=== PATIENT | female | born 1965 | race African-American/Black ===

== ENCOUNTER 2018-11-24 04:47 | Emergency (ER) | payer OTHER ==
[2018-11-24 05:04] VITALS: BMI 28.1
[2018-11-24] MEDS ORDERED: FAMOTIDINE 20 MG/50 ML IVPB 20 MG/50 ML MG IVPB ONE ×2 (05:55→06:13)
[2018-11-24] MEDS ORDERED: MAG HYDROX/AL HYDROX/SIMETH -MYLANTA- ORAL SUSPENSION PO ONE (05:55)
[2018-11-24] MEDS ORDERED: ACETAMINOPHEN 1000 MG/100 ML VIAL (NON FORMULARY) IVPB ONE (05:55)
--- NOTE | 2018-11-24 06:07 | PDOC ---
Attending Attestation - Resident Resident Name: WillyBj - ED Attending Attestation I have performed the following: I have examined & evaluated the patient, The case was reviewed & discussed with the resident, I agree w/resident's findings & plan - HPI HPI: 11/24/18 06:07 Pt comes with chest pain - Physicial Exam PE: 11/24/18 07:08 Agree with resident exam. - Medical Decision Making 11/24/18 07:07 Pt's CBC is normal; EKG normal.
[2018-11-24] MEDS ORDERED: MAG HYDROX/AL HYDROX/SIMETH 30 ML UNIT-DOSE CUP ONE (06:12)
[2018-11-24] MEDS ORDERED: ACETAMINOPHEN INJECTION 100 ML IVPB ONE (06:12)
--- NOTE | 2018-11-24 06:12 | PDOC ---
History of Present Illness - General Chief Complaint: Chest Pain Stated Complaint: CHEST DISCOMFORT Time Seen by Provider: 11/24/18 05:54 History Source: Patient Exam Limitations: No Limitations - History of Present Illness Initial Comments: 11/24/18 06:12 53 yo F with a hx of HTN, HLD, DM, hyperthyroidism, GERD, and constipation presents to the emergency department with LUQ pain with radiation to the periumbilical region and back. Per the patient, the pain has been ongoing for 2 months with acute worsening over the course of 2 weeks. She has an upcoming appointment with Dr. Oviedo this coming Saturday. Per the patient, she has been unable to cope with the pain and has been using tylenol for pain relief. Denies nausea and vomiting. States her last BM was yesterday. Allergies: NKDA Shx: C/S Past History - Past Medical History Allergies/Adverse Reactions: Allergies Allergy/AdvReac Type Severity Reaction Status Date / Time Penicillins Allergy Severe Swelling Verified 11/24/18 05:04 Home Medications: Ambulatory Orders Aspirin [Aspirin EC] 81 mg PO DAILY 09/23/17 Insulin (Levemir) [Levemir Vial] 30 units SQ BID 09/23/17 Metoprolol Succinate 25 mg PO DAILY 09/23/17 Montelukast Sodium [Singulair] 10 mg PO DAILY 09/23/17 Pantoprazole Sodium [Protonix -] 40 mg PO DAILY 09/23/17 Propylthiouracil 50 mg PO TID 09/23/17 Famotidine [Pepcid] 40 mg PO DAILY 11/24/18 Pantoprazole Sodium [Protonix] 40 mg PO DAILY 11/24/18 Rifaximin [Xifaxan] 550 mg PO TID 11/24/18 Sitagliptin Phos/Metformin HCl [Janumet 50-1,000 mg Tablet] 1 each PO BID Valsartan/Hydrochlorothiazide [Valsartan-Hctz 80-12.5 mg Tab] 1 each PO DAILY COPD: No Diabetes: Yes HTN: Yes Thyroid Disease: Yes - Immunization History Immunization Up to Date: Yes - Suicide/Smoking/Psychosocial Hx Smoking History: Never smoked Number of Cigarettes Smoked Daily: 20 Hx Alcohol Use: No Drug/Substance Use Hx: No Review of Systems - Review of Systems Able to Perform ROS?: Yes Is the patient limited Maltese proficient: No Constitutional: No: Chills, Diaphoresis, Fever, Weakness HEENTM: No: Eye Pain, Ear Pain, Nose Pain, Throat Pain, Mouth Pain Respiratory: No: Cough, Shortness of Breath, Hemoptysis Cardiac (ROS): No: Chest Pain, Lightheadedness, Palpitations, Syncope, Chest Tightness ABD/GI: Yes: Constipated, Poor Appetite, Poor Fluid Intake, Abdominal cramping. No: Diarrhea, Nausea, Rectal Bleeding, Vomiting, Tarry Stools : No: Burning, Dysuria, Hematuria, Incontinence Musculoskeletal: No: Back Pain, Joint Pain, Neck Pain Integumentary: No: Bruising, Erythema, Rash Neurological: No: Headache, Numbness, Tingling, Tremors Psychiatric: Yes: Change in Appetite Endocrine: No: Unexplained Weight Gain Hematologic/Lymphatic: No: Anemia *Physical Exam - Vital Signs Last Vital Signs Temp Pulse Resp BP Pulse Ox 97.7 F 86 18 159/86 100 11/24/18 04:47 11/24/18 04:47 11/24/18 04:47 11/24/18 04:47 11/24/18 04:47 - Physical Exam General Appearance: Yes: Nourished, Appropriately Dressed. No: Apparent Distress, Intoxicated HEENT: positive: EOMI, LILY, Normal Voice, Symmetrical, Pharynx Normal, Hearing Grossly Normal. negative: Pale Conjunctivae, Scleral Icterus (R), Scleral Icterus (L), Muffled/Hoarse voice, Pharyngeal Erythema, Tonsillar Exudate, Tonsillar Erythema, Nasal Congestion, Rhinorrhea, Excessive drooling Neck: positive: Trachea midline, Supple. negative: Tender, Lymphadenopathy (R) , Lymphadenopathy (L), Tender lateral, Tender midline Respiratory/Chest: positive: Lungs Clear, Normal Breath Sounds. negative: Chest Tender, Respiratory Distress, Accessory Muscle Use, Crackles, Rales, Rhonchi, Stridor, Wheezing, Hyperresonant Cardiovascular: positive: Regular Rhythm, Regular Rate, S1, S2. negative: Systolic Murmur Gastrointestinal/Abdominal: positive: Normal Bowel Sounds, Tender (LUQ, periumbilical region), Flat, Soft. negative: Distended, Guarding Lymphatic: negative: Adenopathy Musculoskeletal: positive: Normal Inspection. negative: CVA Tenderness, Vertebral Tenderness Extremity: positive: Normal Capillary Refill, Normal Inspection, Normal Range of Motion. negative: Tender, Swelling, Calf Tenderness Integumentary: positive: Normal Color, Dry, Warm. 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 Initial vitals: Initial Vital Signs Temp Pulse Resp BP Pulse Ox 97.7 F 86 18 159/86 100 11/24/18 04:47 11/24/18 04:47 11/24/18 04:47 11/24/18 04:47 11/24/18 04:47 Work up: ddx: gastritis vs hernia (on physical exam; a hernia noted in the abdomen left to periumbilical region) vs UTI vs pancreatitis Laboratory Tests 11/24/18 06:25 WBC 8.9 RBC 4.59 Hgb 11.5 Hct 35.5 D MCV 77.2 L MCH 24.9 L D MCHC 32.3 RDW 16.9 H Plt Count 193 MPV 9.4 D Absolute Neuts (auto) 3.5 Neutrophils % 39.9 L D Lymphocytes % 46.8 H D Monocytes % 10.1 Eosinophils % 2.7 D Basophils % 0.5 Nucleated RBC % 0 interventions: gi cocktail and tylenol and morphine. Patient signed out to day team with pending lab work. 11/24/18 06:53 *DC/Admit/Observation/Transfer Diagnosis at time of Disposition: Abdominal pain - Referrals Referrals: Corin Vargas DO [Staff Physician] - Marino Quezada MD [Primary Care Provider] - - Patient Instructions Printed Discharge Instructions: DI for Abdominal Pain-Adult, DI for - - Discomforts and Remedies Additional Instructions: You were seen in the ED for chronic abdominal pain Your lab test were unremarkable aside from a positive Your transvaginal ultrasound did not show intrauterine , however your Beta blood tests shows you are likely to early to visualize. You will need to follow up with OBGYN and return to the ED in 48 hours for repeat beta blood test You have a referral for OBGYN and should follow up within 1 week You have an appointment with Dr. Oviedo coming up You may take Tylenol for pain relief Return to the ED immediately if you experience worsening abdominal pain, blood in vomit or stool, fever > 104F, chest pain or shortness of breath - Post Discharge Activity
[2018-11-24 06:38] LABS: BASO % 0.5 % (0-2.0); EOS % 2.7 % (0-4.5); HEMATOCRIT 35.5 % (32.4-45.2); HEMOGLOBIN 11.5 GM/dL (10.7-15.3); LYMPH % 46.8 % (8-40); MCH 24.9 pg (25.7-33.7); MCHC 32.3 g/dl (32.0-36.0); MEAN CELL VOLUME 77.2 fl (80-96); MEAN PLT VOLUME 9.4 fl (7.5-11.1); MONO % 10.1 % (3.8-10.2); NEUT % 39.9 % (42.8-82.8); PLATELET COUNT 193 K/MM3 (134-434); RBC 4.59 M/mm3 (3.60-5.2); RDW 16.9 % (11.6-15.6); WHITE BLOOD COUNT 8.9 K/mm3 (4.0-10.0)
[2018-11-24] MEDS ORDERED: morphine CARPU-JECT 2 MG/1 ML DISP.SYRIN IVPUSH ONE (06:49)
[2018-11-24 07:13] LABS: ALBUMIN 3.7 g/dl (3.4-5.0); BILIRUBIN,TOTAL 0.2 mg/dL (0.2-1); BLOOD UREA NITROGEN 14.5 mg/dL (7-18); CALCIUM 9.3 mg/dL (8.5-10.1); CREATININE 0.7 mg/dL (0.55-1.3); POTASSIUM 3.6 mmol/L (3.5-5.1); TOT PROT 7.8 g/dl (6.4-8.2)
[2018-11-24] MEDS ORDERED: MORPHINE SULFATE 2 MG/ML VIAL ONE (08:01)
--- NOTE | 2018-11-24 08:23 | PDOC ---
*Physical Exam - Vital Signs Last Vital Signs Temp Pulse Resp BP Pulse Ox 97.5 F L 78 18 173/96 H 100 11/24/18 07:57 11/24/18 07:57 11/24/18 07:57 11/24/18 07:57 11/24/18 07:57 ED Treatment Course - LABORATORY CBC & Chemistry Diagram: 11/24/18 06:25 11/24/18 06:25 - ADDITIONAL ORDERS Additional order review: Laboratory Results 11/24/18 11/24/18 11/24/18 06:25 06:25 06:25 Sodium Potassium Chloride Carbon Dioxide Anion Gap BUN Creatinine Est GFR (CKD-EPI)AfAm Est GFR (CKD-EPI)NonAf Random Glucose Lactic Acid 1.4 Calcium Magnesium 2.0 Total Bilirubin AST ALT Alkaline Phosphatase Total Protein Albumin Lipase 199 Beta HCG, Quant 6.7 11/24/18 06:25 Sodium 137 Potassium 3.6 Chloride 103 Carbon Dioxide 28 Anion Gap 6 L BUN 14.5 Creatinine 0.7 Est GFR (CKD-EPI)AfAm 116.27 Est GFR (CKD-EPI)NonAf 100.32 Random Glucose 234 H Lactic Acid Calcium 9.3 Magnesium Total Bilirubin 0.2 AST 8 L ALT 15 Alkaline Phosphatase 74 Total Protein 7.8 Albumin 3.7 Lipase Beta HCG, Quant 11/24/18 06:25 RBC 4.59 MCV 77.2 L MCHC 32.3 RDW 16.9 H MPV 9.4 D Neutrophils % 39.9 L D Lymphocytes % 46.8 H D Monocytes % 10.1 Eosinophils % 2.7 D Basophils % 0.5 - Medications Given in the ED: ED Medications Discontinued Medications Generic Name Dose Route Start Last Admin Trade Name Arcenio PRN Reason Stop Dose Admin Acetaminophen 1,000 mg 11/24/18 05:55 11/24/18 06:30 Ofirmev Injection - IVPB 11/24/18 05:56 1,000 mg ONCE ONE Administration Al Hydroxide/Mg Hydroxide 30 ml 11/24/18 05:55 11/24/18 06:30 Mylanta Suspension - PO 11/24/18 05:56 30 ml ONCE ONE Administration Famotidine/Sodium Chloride 20 mg in 50 mls @ 100 mls/hr 11/24/18 05:55 06:30 Pepcid 20 Mg Premixed Ivpb - IVPB 11/24/18 06:24 100 mls/hr ONCE ONE Administration Morphine Sulfate 2 mg 11/24/18 06:49 11/24/18 08:12 Morphine Injection - IVPUSH 11/24/18 06:50 2 mg ONCE ONE Administration *DC/Admit/Observation/Transfer Diagnosis at time of Disposition: Abdominal pain, - Discharge Dispostion Disposition: HOME Condition at time of disposition: Stable Decision to Admit order: No - Referrals Referrals: Marino Quezada MD [Primary Care Provider] - Corin Vargas DO [Staff Physician] - - Patient Instructions Printed Discharge Instructions: DI for Abdominal Pain-Adult, DI for - - Discomforts and Remedies Additional Instructions: You were seen in the ED for chronic abdominal pain Your lab test were unremarkable aside from a positive Your transvaginal ultrasound did not show intrauterine , however your Beta blood tests shows you are likely to early to visualize. You will need to follow up with OBGYN and return to the ED in 48 hours for repeat beta blood test You have a referral for OBGYN and should follow up within 1 week You have an appointment with Dr. Oviedo coming up You may take Tylenol for pain relief Return to the ED immediately if you experience worsening abdominal pain, blood in vomit or stool, fever > 104F, chest pain or shortness of breath - Post Discharge Activity
[2018-11-24 09:13] LABS: EPI CELLS 2.8 /HPF (0-5/HPF); HYALINE CASTS 5 /lpf (0-8); PH,URINE 5.5 (5.0-8.0); URINE APPEARANCE CLEAR; URINE BACTERIA 13.7 /hpf (NEGATIVE); URINE BILIRUBIN NEGATIVE (NEGATIVE); URINE COLOR YELLOW; URINE GLUCOSE (UA) NEGATIVE (NEGATIVE); URINE KETONE NEGATIVE (NEGATIVE); URINE LEUK ESTERASE NEGATIVE (NEGATIVE); URINE NITRITE NEGATIVE (NEGATIVE); URINE PROTEIN 2+ (NEGATIVE); URINE RBC 2 /hpf (0-4); URINE UROBILINOGEN 0.2 mg/dL (0.2-1.0); URINE WBC 1 /hpf (0-5)
--- NOTE | 2018-11-24 09:17 | EKG ---
Test Reason : Blood Pressure : / mmHG Vent. Rate : 083 BPM Atrial Rate : 083 BPM P-R Int : 190 ms QRS Dur : 082 ms QT Int : 398 ms P-R-T Axes : 046 -15 058 degrees QTc Int : 467 ms NORMAL SINUS RHYTHM POSSIBLE LEFT ATRIAL ENLARGEMENT LEFT VENTRICULAR HYPERTROPHY NONSPECIFIC T WAVE ABNORMALITY PROLONGED QT ABNORMAL ECG WHEN COMPARED WITH ECG OF 23-SEP-2017 09:41, NONSPECIFIC T WAVE ABNORMALITY, WORSE IN LATERAL LEADS Confirmed by JERALD CERVANTES, CAMILA ([id number]) on 11/24/2018 9:16:38 AM Referred By: Confirmed By:CAMILA MARQUES MD
[2018-11-24 11:23] VITALS: BP 167/85; PULSE 79; TEMP 97.7
== END 2018-11-24 11:52 | disposition home or self-care (01) ==
LOC: JER 04:47
PROC: 3E033GC Introduction of Other Therapeutic Substance into Peripheral Vein, Percutaneous Approach (ICD-10-PCS; principal; 2018-11-24)
PROC: 3E033NZ Introduction of Analgesics, Hypnotics, Sedatives into Peripheral Vein, Percutaneous Approach (ICD-10-PCS; 2018-11-24)
PROC: 3E033NZ Introduction of Analgesics, Hypnotics, Sedatives into Peripheral Vein, Percutaneous Approach (ICD-10-PCS; 2018-11-24)
DX: O26.891 Other specified pregnancy related conditions, first trimester (principal); R10.9 Unspecified abdominal pain; O10.911 Unspecified pre-existing hypertension complicating pregnancy, first trimester; O24.111 Pre-existing type 2 diabetes mellitus, in pregnancy, first trimester; O99.281 Endocrine, nutritional and metabolic diseases complicating pregnancy, first trimester; Z79.4 Long term (current) use of insulin; Z3A.01 Less than 8 weeks gestation of pregnancy
CPT/HCPCS: 36415; 76817-TC; 80053; 81003; 83605; 83690; 83735; 84702; 85025; 93005; 93010; 99283-25; J0131

== ENCOUNTER 2019-03-12 19:06 | Emergency (ER) | payer OTHER ==
[2019-03-12] MEDS ORDERED: ALBUTEROL SO4 2.5/IPRATROPIUM 0.5 INH SOL 3 ML VIAL.NEB. NEB ONE ×3 (19:17→20:23)
--- NOTE | 2019-03-12 19:19 | PDOC ---
Rapid Medical Evaluation Chief Complaint: Shortness of Breath Time Seen by Provider: 03/12/19 19:14 Medical Evaluation: Allergies Allergy/AdvReac Type Severity Reaction Status Date / Time Penicillins Allergy Severe Swelling Verified 11/24/18 05:04 03/12/19 19:14 I have performed a brief in-person evaluation of this patient. The patient presents with a chief complaint of:SOB 3 days, cough dry- Pertinent physical exam findings: tachypneic/ left BS diminished , appears ill I have ordered the following: EKG , CXR , DuoNeb The patient will proceed to the ED for further evaluation. 03/12/19 19:14 03/12/19 19:18 Discharge Disposition - Diagnosis SOB (shortness of breath) - Discharge Dispostion Condition at time of disposition: Stable - Referrals - Patient Instructions - Post Discharge Activity
[2019-03-12 19:21] VITALS: TEMP 99.5; BMI 29.6
--- NOTE | 2019-03-12 19:46 | PDOC ---
History of Present Illness - General Chief Complaint: Shortness of Breath Stated Complaint: SOB Time Seen by Provider: 03/12/19 19:14 History Source: Patient Exam Limitations: No Limitations - History of Present Illness Initial Comments: 03/12/19 19:46 54y F with PMH of HTN, HLD, DM, hyperthyroidism, GERD, Asthma presenting to ED with complaints of SOB, cough and chest pain. Patient states the symptoms started 2d ago but got worse this AM. She endorses cough, subjective fevers and chills, congestion, sore throat, headache and pain in the back of her neck. Denies n/v/d, abdominal pain, joint pain, weakness, neck stiffness, changes in vision. 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 Has had similar symptoms in the past when she was diagnosed with pna. PMD: Vu Quezada PMH: see hpi Meds: see med rec Allergies: PCN (rash/swelling) Social: smokes 1pack/week Past History - Past Medical History Allergies/Adverse Reactions: Allergies Allergy/AdvReac Type Severity Reaction Status Date / Time Penicillins Allergy Severe Swelling Verified 11/24/18 05:04 Home Medications: Ambulatory Orders Aspirin [Aspirin EC] 81 mg PO DAILY 09/23/17 Insulin (Levemir) [Levemir Vial] 30 units SQ BID 09/23/17 Metoprolol Succinate 25 mg PO DAILY 09/23/17 Montelukast Sodium [Singulair] 10 mg PO DAILY 09/23/17 Pantoprazole Sodium [Protonix -] 40 mg PO DAILY 09/23/17 Propylthiouracil 50 mg PO TID 09/23/17 Famotidine [Pepcid] 40 mg PO DAILY 11/24/18 Pantoprazole Sodium [Protonix] 40 mg PO DAILY 11/24/18 Rifaximin [Xifaxan] 550 mg PO TID 11/24/18 Sitagliptin Phos/Metformin HCl [Janumet 50-1,000 mg Tablet] 1 each PO BID Valsartan/Hydrochlorothiazide [Valsartan-Hctz 80-12.5 mg Tab] 1 each PO DAILY Azithromycin [Zithromax 250mg Tablets -] 250 mg PO UTDICT #6 tab 03/12/19 Methylprednisolone [Medrol Dose Armand] 4 mg PO ASDIR #21 tablet 03/12/19 Asthma: Yes COPD: No Diabetes: Yes HTN: Yes Thyroid Disease: Yes - Immunization History Immunization Up to Date: Yes - Psycho Social/Smoking Cessation Hx Smoking History: Current every day smoker Number of Cigarettes Smoked Daily: 10 Information on smoking cessation initiated: No Hx Alcohol Use: No Drug/Substance Use Hx: No Review of Systems - Review of Systems Constitutional: Yes: Chills, Fever HEENTM: Yes: See HPI, Throat Pain Respiratory: Yes: See HPI, Cough, Shortness of Breath Cardiac (ROS): Yes: See HPI ABD/GI: No: Symptoms Reported : No: Symptoms Reported Musculoskeletal: Yes: See HPI Integumentary: No: Symptoms Reported Neurological: No: Symptoms reported *Physical Exam - Vital Signs Last Vital Signs Temp Pulse Resp BP Pulse Ox 99.5 F 105 H 20 145/73 98 03/12/19 19:16 03/12/19 19:16 03/12/19 19:16 03/12/19 19:16 03/12/19 19:16 - Physical Exam General Appearance: Yes: Appropriately Dressed, Mild Distress, Obese HEENT: positive: EOMI, LILY, Nasal Congestion. negative: Tonsillar Exudate Neck: positive: Trachea midline, Supple. negative: Stridor, Lymphadenopathy (R) , Lymphadenopathy (L) Respiratory/Chest: positive: Decreased Breath Sounds, Other (prolonged expiratory phase). negative: Chest Tender, Respiratory Distress, Accessory Muscle Use, Labored Respiration, Crackles, Rales, Rhonchi, Stridor, Wheezing Cardiovascular: positive: Regular Rhythm, S1, S2, Tachycardia. negative: Edema , JVD, Murmur Vascular Pulses: Dorsalis-Pedis (R): 2+, Doralis-Pedis (L): 2+ Gastrointestinal/Abdominal: positive: Normal Bowel Sounds, Soft. negative: Tender Musculoskeletal: negative: CVA Tenderness Extremity: positive: Normal Capillary Refill. 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 vitals; slight tachycardia. pe: prolonged expiratory phase, no wheezing, no retractions or increased wob, no friction rubs. ddx includes but not limited to uri, pna, bronchitis, pna, pleurisy, pericarditis, carditis, effusion, pe, acs low suspicion for acs/pe. likely infectious given h/o congestion and chills/ fevers at home, and sick contacts. will obtain basic labs and trop, flu swab ekg, cxr -duonebs, ofirmev, ivf labs wnl. flu negative cxr unremarkable; no consolidations or infiltrates per my read ekg: sinus tachycardia at 106, normal intervals. no navneet or depressions. flattened t waves in aVL, I. similar to prior ekg. upon reassessment, patient reports marked improvement of symptoms. lungs with improved air movement. will give decadron. rx for zpack and medrol dose pack sent. advised pt to follow up with pmd. given return precautions 03/12/19 22:41 Discharge - Discharge Information Problems reviewed: Yes Clinical Impression/Diagnosis: SOB (shortness of breath) Upper respiratory infection Qualifiers: URI type: unspecified URI Qualified Code(s): J06.9 - Acute upper respiratory infection, unspecified Condition: Improved Disposition: HOME - Additional Discharge Information Prescriptions: Azithromycin [Zithromax 250mg Tablets -] 250 mg PO UTDICT #6 tab Methylprednisolone [Medrol Dose Armand] 4 mg PO ASDIR #21 tablet - Follow up/Referral Referrals: Marino Quezada MD [Primary Care Provider] - - Patient Discharge Instructions Patient Printed Discharge Instructions: DI for Viral Upper Respiratory Infection -- Adult Additional Instructions: You were seen in the emergency room today for shortness of breath and cough. Your blood work is normal and the xray does not show a pneumonia. I have sent a prescription to your pharmacy for an antibiotic and a steroid course. Please take as directed. Use your inhaler as needed for shortness of breath. Please make an appointment with your primary care doctor tomorrow or early next week regarding this ED visit. Come back to the emergency room if you have worsening shortness of breath, you develop worsening chest pain, you continue to have fevers or if any new or concerning symptom develops. Thank you - Post Discharge Activity
[2019-03-12] MEDS ORDERED: SODIUM CHLORIDE 1,000 ML IV STA (19:56)
[2019-03-12] MEDS ORDERED: ACETAMINOPHEN 1000 MG/100 ML VIAL (NON FORMULARY) IVPB ONE (19:56)
[2019-03-12] MEDS ORDERED: ACETAMINOPHEN INJECTION 100 ML IVPB ONE (20:02)
[2019-03-12 20:20] LABS: BASO % 0.4 % (0-2.0); EOS % 1.1 % (0-4.5); HEMATOCRIT 37.2 % (32.4-45.2); HEMOGLOBIN 12.2 GM/dL (10.7-15.3); LYMPH % 14.3 % (8-40); MCH 27.5 pg (25.7-33.7); MCHC 32.7 g/dl (32.0-36.0); MEAN CELL VOLUME 84.1 fl (80-96); MEAN PLT VOLUME 10.3 fl (7.5-11.1); MONO % 11.4 % (3.8-10.2); NEUT % 72.8 % (42.8-82.8); PLATELET COUNT 158 K/MM3 (134-434); RBC 4.43 M/mm3 (3.60-5.2); RDW 15.2 % (11.6-15.6); WHITE BLOOD COUNT 9.8 K/mm3 (4.0-10.0)
[2019-03-12 20:31] LABS: INR 1.08 (0.83-1.09); PROTHROMBIN TIME (PATIENT) 12.7 SEC (9.7-13.0)
[2019-03-12 20:39] LABS: ALBUMIN 3.6 g/dl (3.4-5.0); BILIRUBIN,TOTAL 0.3 mg/dL (0.2-1); BLOOD UREA NITROGEN 11.3 mg/dL (7-18); CALCIUM 8.6 mg/dL (8.5-10.1); CREATININE 0.7 mg/dL (0.55-1.3); MAGNESIUM 1.8 mg/dL (1.8-2.4); POTASSIUM 3.7 mmol/L (3.5-5.1); TOT PROT 7.1 g/dl (6.4-8.2)
--- NOTE | 2019-03-12 22:13 | PDOC ---
Attending Attestation - Resident Resident Name: Ada Holliday - ED Attending Attestation I have performed the following: I have examined & evaluated the patient, The case was reviewed & discussed with the resident, I agree w/resident's findings & plan, Exceptions are as noted - HPI HPI: 03/12/19 22:13 See resident HPI - Physicial Exam PE: 03/13/19 00:12 Agree with exam as documented by resident - Medical Decision Making 03/13/19 00:12 2 days of URI like symptoms Infectious etiology most likely, other ddx unlikely cxr, symptomatic tx, re-eval improvement on re-eval dc home 03/13/19 00:19
[2019-03-12] MEDS ORDERED: DEXAMETHASONE SOD PHOSPHATE 10 MG/1 ML VIAL IVPUSH ONE (22:31)
[2019-03-12] MEDS ORDERED: DEXAMETHASONE SOD PHOSPHATE 10 MG/1 ML VIAL ONE (22:38)
[2019-03-12 23:38] VITALS: BP 149/76; PULSE 97
--- NOTE | 2019-03-13 11:12 | EKG ---
Test Reason : Blood Pressure : / mmHG Vent. Rate : 106 BPM Atrial Rate : 106 BPM P-R Int : 182 ms QRS Dur : 086 ms QT Int : 364 ms P-R-T Axes : 075 -07 086 degrees QTc Int : 483 ms SINUS TACHYCARDIA POSSIBLE LEFT ATRIAL ENLARGEMENT NONSPECIFIC T WAVE ABNORMALITY ABNORMAL ECG WHEN COMPARED WITH ECG OF 24-NOV-2018 04:49, NO SIGNIFICANT CHANGE WAS FOUND Confirmed by PILAR MARIE MD ([id number]) on 03/13/2019 11:11:51 AM Referred By: Confirmed By:PILAR MARIE MD
== END 2019-03-12 22:50 | disposition home or self-care (01) ==
LOC: JER 19:06
PROC: 3E0F7GC Introduction of Other Therapeutic Substance into Respiratory Tract, Via Natural or Artificial Opening (ICD-10-PCS; principal; 2019-03-12)
PROC: 3E0F7GC Introduction of Other Therapeutic Substance into Respiratory Tract, Via Natural or Artificial Opening (ICD-10-PCS; 2019-03-12)
DX: J06.9 Acute upper respiratory infection, unspecified (principal); I10 Essential (primary) hypertension; E11.9 Type 2 diabetes mellitus without complications; Z79.4 Long term (current) use of insulin; E78.5 Hyperlipidemia, unspecified; E05.90 Thyrotoxicosis, unspecified without thyrotoxic crisis or storm; J44.9 Chronic obstructive pulmonary disease, unspecified; J45.998 Other asthma; Z88.0 Allergy status to penicillin; F17.210 Nicotine dependence, cigarettes, uncomplicated
CPT/HCPCS: 36415; 71046-TC-FY; 80053; 83735; 84484; 85025; 85610; 87804; 93005; 93010; 99283-25; J0131; J1100; J7030

== ENCOUNTER 2019-09-18 00:15 | Inpatient (IN) | payer OTHER ==
--- NOTE | 2019-09-18 00:56 | PDOC ---
Documentation entered by Kay Rodriguez SCRIBE, acting as scribe for Dylan Murcia MD. Dylan Murcia MD: This documentation has been prepared by the Michael chapin Adrianna, SCRIBE, under my direction and personally reviewed by me in its entirety. I confirm that the documentation accurately reflects all work, treatment, procedures, and medical decision making performed by me. Attending Attestation - Resident Resident Name: Kristian Bryant - ED Attending Attestation I have performed the following: I have examined & evaluated the patient, The case was reviewed & discussed with the resident, I agree w/resident's findings & plan, Exceptions are as noted - HPI HPI: The patient is 54 year old female, with a significant PMH of HTN, HLD, DM, hyperthyroidism, GERD, and asthma, who presents to the ED for evaluation of SOB for 2 weeks. Patient complains of SOB, which she is concerned is pneumonia. She endorses right sided chest pain that is onset when she feels short of breath. Patient saw her PCP for these complaints yesterday, and now is on day 2 of azithromycin. Denies fever, chills, cough. Allergies: penicillins Surgical History: None reported Social History: Current everyday smoker (1 pack per week) PCP: Dr. Quezada - Physicial Exam PE: Agree with documented exam - Medical Decision Making 09/18/19 06:52 Atypical chest pain in moderate risk patient a/w sob, tachycardic to 103 at bedside eval for acs, low risk for PE, cannot r/o f/u labs, trend CE, cxr, ekg d-dimer to CT PE if elevated past threshold admit tele Discharge - Discharge Information Problems reviewed: Yes Clinical Impression/Diagnosis: SOB (shortness of breath), Elevated troponin Abdominal pain Qualifiers: Abdominal location: right upper quadrant Qualified Code(s): R10.11 - Right upper quadrant pain Chest pain Qualifiers: Chest pain type: unspecified Qualified Code(s): R07.9 - Chest pain, unspecified Condition: Good - Follow up/Referral - Patient Discharge Instructions - Post Discharge Activity
--- NOTE | 2019-09-18 01:06 | PDOC ---
History of Present Illness - General Chief Complaint: Shortness of Breath Stated Complaint: DIFFICULTY BREATHING - History of Present Illness Initial Comments: The pt is a 54F w/ a PMH of HTN, HLD, DM, hyperthyroidism, GERD, Asthma who presents for evaluation of 2 weeks of intermittent SOB. The pt reports intermittent episodes of shortness of breath that last approximately 10 minutes at a time. They are not related to exertion any trigger she can identify. She reports associated R chest wall pain with deep inspiration. She denies fever, cough, abd pain, N/V/D, dysuria, hematuria. Of note, she was provided an albuterol inhaler yesterday that she has been using every couple of hours. She states she has not had anything happen like this before. Denies history of [place] or stroke 09/18/19 01:07 Past History - Medical History Allergies/Adverse Reactions: Allergies Allergy/AdvReac Type Severity Reaction Status Date / Time Penicillins Allergy Severe Swelling Verified 09/18/19 00:44 Home Medications: Ambulatory Orders Aspirin [Aspirin EC] 81 mg PO DAILY 09/23/17 Insulin (Levemir) [Levemir Vial] 20 units SQ BID 09/23/17 Metoprolol Succinate 25 mg PO DAILY 09/23/17 Propylthiouracil 50 mg PO TID 09/23/17 Pantoprazole Sodium [Protonix] 40 mg PO DAILY 11/24/18 Rifaximin [Xifaxan] 550 mg PO TID 11/24/18 Sitagliptin Phos/Metformin HCl [Janumet 50-1,000 mg Tablet] 1 each PO BID 11/24/18 Valsartan/Hydrochlorothiazide [Valsartan-Hctz 80-12.5 mg Tab] 1 each PO DAILY 11/24/18 Albuterol Sulfate Inhaler - 90 mcg IH ASDIR 09/18/19 Linaclotide [Linzess] 290 mcg PO DAILY 09/18/19 Novolog Vial Sliding Scale - SQ ACHS 09/18/19 SYMBICORT 160/4.5mcg - 2 puff IH BID 09/18/19 Asthma: Yes COPD: No Diabetes: Yes HTN: Yes Thyroid Disease: Yes - Immunization History Immunization Up to Date: Yes - Psycho-Social/Smoking History Smoking History: Never smoked Have you smoked in the past 12 months: No Number of Cigarettes Smoked Daily: 20 Information on smoking cessation initiated: No - Substance Abuse Hx (Audit-C & DAST Scrn) How often the patient has a drink containing alcohol: Never Score: In Men: 4 or > Positive; In Women: 3 or > Positive: 0 Screen Result (Pos requires Nsg. Audit-10AR): Negative In the last yr the pt used illegal drug/Rx for NonMed reason: No Score: Yes response is considered Positive: 0 Screen Result (Positive result requires Nsg. DAST-10): Negative Review of Systems - Review of Systems Able to Perform ROS?: Yes Comments:: GENERAL/CONSTITUTIONAL: No fever or chills HEAD, EYES, EARS, NOSE AND THROAT: No change in vision. No change in hearing. No sore throat CARDIOVASCULAR: per HPI RESPIRATORY: Denies cough, hemoptysis GASTROINTESTINAL: No nausea, vomiting, diarrhea or constipation GENITOURINARY: No dysuria, frequency, or change in urination MUSCULOSKELETAL: No joint or muscle swelling or pain. No neck or back pain SKIN: No rash NEUROLOGIC: No vertigo, loss of consciousness, or change in strength/sensation ENDOCRINE: No increased thirst. No abnormal weight change HEMATOLOGIC/LYMPHATIC: No anemia, easy bleeding, or history of blood clots ALLERGIC/IMMUNOLOGIC: No hives or skin allergy 09/18/19 05:19 Is the patient limited Nepali proficient: No *Physical Exam - Vital Signs Last Vital Signs Temp Pulse Resp BP Pulse Ox 97.6 F 92 H 22 H 146/97 99 09/18/19 00:44 09/18/19 00:44 09/18/19 00:44 09/18/19 00:44 09/18/19 00:44 - Physical Exam GENERAL: Awake, alert, and oriented to person/place/time, in no acute distress HEAD: No signs of trauma, normocephalic, atraumatic EYES: PERRLA, EOMI, sclera anicteric, conjunctiva clear ENT: Hearing grossly normal, nares patent, oropharynx clear without exudates. Moist mucosa LUNGS: No distress, speaks in full sentences, clear to auscultation bilaterally CHEST: R chest wall TTP w/o rash, ecchymosis, or wound HEART: Regular rate and rhythm, normal S1 and S2, no murmurs appreciated, peripheral pulses normal and equal bilaterally ABDOMEN: Soft, protuberant, nontender, normoactive bowel sounds. No guarding, no rebound EXTREMITIES: Normal inspection, Normal range of motion, no edema. No clubbing or cyanosis NEUROLOGICAL: Cranial nerves II through XII grossly intact. Normal speech, no focal sensorimotor deficits SKIN: Warm, Dry 09/18/19 05:20 ED Treatment Course - LABORATORY CBC & Chemistry Diagram: 09/18/19 13:00 09/18/19 13:00 - RADIOLOGY Radiology Studies Ordered: Category Date Time Status CHEST X-RAY PORTABLE* [RAD] Stat Radiology 09/18/19 00:52 Ordered Medical Decision Making - Medical Decision Making The pt is a 54F w/ a PMH of HTN, HLD, DM, hyperthyroidism, GERD, Asthma who presents for evaluation of 2 weeks of intermittent SOB w/ associated R chest wall pain and anxiety Ddx: ashtma, ACS, HF, PNA, not likely PE ED Course CMP, CBC, Lipase, Trop I, BNP ECG CXR Trop I 0.08 BNP elevated LFTs noted to be elevated, will obtain AM US Lipase wnl Lytes unremarkable No BRIGETTE ECG w/ NSR; HR 85; left axis deviation; Prolonged QTc (497); no acute ischemic changes Plan for admission for ACS and transaminitis Pt endorsed to Dr. Byrne Pt became very anxious about being in the hospital but is unable to give a specific reason why Denies chest pain at this time Klonopin 1mg PO once for anxiety 09/18/19 05:21 Pt now with epigastric/RUQ pain Will repeat Trop and ECG, will send dimer Repeat ECG w/o significant change 09/18/19 06:08 Pt w/ elevated d-dimer, and age adjusted is still >500 Will obtain CTA chest to evaluate for PE as cause of dyspnea Will obtain CT A&P to evaluate pt's abdominal pain 09/18/19 06:32 Discharge - Discharge Information Problems reviewed: Yes Clinical Impression/Diagnosis: SOB (shortness of breath), Elevated troponin Abdominal pain Qualifiers: Abdominal location: right upper quadrant Qualified Code(s): R10.11 - Right upper quadrant pain Chest pain Qualifiers: Chest pain type: unspecified Qualified Code(s): R07.9 - Chest pain, unspecified Condition: Good - Admission Yes - Follow up/Referral - Patient Discharge Instructions - Post Discharge Activity
[2019-09-18 01:14] LABS: BASO % 0.5 % (0-2.0); EOS % 1.3 % (0-4.5); HEMATOCRIT 40.2 % (32.4-45.2); LYMPH % 27.9 % (8-40); MCH 27.3 pg (25.7-33.7); MCHC 32.4 g/dl (32.0-36.0); MEAN CELL VOLUME 84.2 fl (80-96); MEAN PLT VOLUME 9.9 fl (7.5-11.1); MONO % 9.9 % (3.8-10.2); NEUT % 60.4 % (42.8-82.8); PLATELET COUNT 206 K/MM3 (134-434); RBC 4.77 M/mm3 (3.60-5.2); RDW 15.7 % (11.6-15.6); WHITE BLOOD COUNT 10.2 K/mm3 (4.0-10.0)
[2019-09-18 01:41] LABS: ALBUMIN 3.5 g/dl (3.4-5.0); BILIRUBIN,TOTAL 0.4 mg/dL (0.2-1); BLOOD UREA NITROGEN 14.2 mg/dL (7-18); CALCIUM 9.2 mg/dL (8.5-10.1); POTASSIUM 3.9 mmol/L (3.5-5.1); TOT PROT 7.2 g/dl (6.4-8.2)
[2019-09-18] MEDS ORDERED: ACETAMINOPHEN 325 MG TABLET (FP) PO ONE (04:35)
[2019-09-18] MEDS ORDERED: ACETAMINOPHEN 1000 MG/100 ML VIAL (NON FORMULARY) IVPB ONE (04:35)
[2019-09-18] MEDS ORDERED: ACETAMINOPHEN INJECTION 100 ML IVPB ONE (04:36)
[2019-09-18] MEDS ORDERED: clonazePAM 0.5 MG TABLET PO ONE (04:44)
[2019-09-18] MEDS ORDERED: clonazePAM 0.5 MG TABLET ONE (04:45)
[2019-09-18 05:06] LABS: N-TERMINAL BNP 1883.7 pg/ml (5-125)
[2019-09-18] MEDS ORDERED: metoPROLOL SUCCINATE 25 MG TAB.SR.24H (FP) PO ONE (06:20)
[2019-09-18] MEDS ORDERED: metoPROLOL SUCCINATE 25 MG TAB.SR.24H (FP) ONE ×2 (06:23→11:17)
[2019-09-18] MEDS ORDERED: ALBUTEROL SO4 2.5/IPRATROPIUM 0.5 INH SOL 3 ML VIAL.NEB. NEB PRN (09:28)
--- NOTE | 2019-09-18 09:38 | PN ---
Progress Note (short form) - Note Progress Note: Spoke with Dr. Byrne. Patient is patient of Dr. Marino Quezada and outpatient of Dr. Oviedo. Advised she call Dr. Oviedo's office for further GI evaluation.
--- NOTE | 2019-09-18 09:58 | CON.CARD ---
Consult Consult Specialty:: Cardiology - History of Present Illness History of Present Illness: The pt is a 54F w/ a PMH of HTN, HLD, DM, hyperthyroidism, GERD, Asthma who presents for evaluation of 2 weeks of intermittent SOB. The pt reports intermittent episodes of shortness of breath that last approximately 10 minutes at a time. They are not related to exertion any trigger she can identify. She reports associated R chest wall pain with deep inspiration. She denies fever, cough, abd pain, N/V/D, dysuria, hematuria. Of note, she was provided an albuterol inhaler yesterday that she has been using every couple of hours. She states she has not had anything happen like this before. Denies history of [place] or stroke 09/18/19 01:07 - Alcohol/Substance Use Hx Alcohol Use: No - Smoking History Smoking history: Never smoked Have you smoked in the past 12 months: No Aproximately how many cigarettes per day: 20 Home Medications - Allergies Allergies/Adverse Reactions: Allergies Allergy/AdvReac Type Severity Reaction Status Date / Time Penicillins Allergy Severe Swelling Verified 09/18/19 00:44 - Home Medications Home Medications: Ambulatory Orders Aspirin [Aspirin EC] 81 mg PO DAILY 09/23/17 Insulin (Levemir) [Levemir Vial] 20 units SQ BID 09/23/17 Metoprolol Succinate 25 mg PO DAILY 09/23/17 Propylthiouracil 50 mg PO TID 09/23/17 Pantoprazole Sodium [Protonix] 40 mg PO DAILY 11/24/18 Rifaximin [Xifaxan] 550 mg PO TID 11/24/18 Sitagliptin Phos/Metformin HCl [Janumet 50-1,000 mg Tablet] 1 each PO BID 11/24/18 Valsartan/Hydrochlorothiazide [Valsartan-Hctz 80-12.5 mg Tab] 1 each PO DAILY 11/24/18 Albuterol Sulfate Inhaler - 90 mcg IH ASDIR 09/18/19 Linaclotide [Linzess] 290 mcg PO DAILY 09/18/19 Novolog Vial Sliding Scale - SQ ACHS 09/18/19 SYMBICORT 160/4.5mcg - 2 puff IH BID 09/18/19 Review of Systems - Review of Systems Constitutional: reports: No Symptoms Eyes: reports: No Symptoms HENT: reports: No Symptoms Neck: reports: No Symptoms Cardiovascular: reports: No Symptoms, Shortness of Breath Respiratory: reports: SOB, SOB on Exertion Gastrointestinal: reports: No Symptoms Genitourinary: reports: No Symptoms Breasts: reports: No Symptoms Reported Musculoskeletal: reports: No Symptoms Integumentary: reports: No Symptoms Neurological: reports: No Symptoms Endocrine: reports: No Symptoms Hematology/Lymphatic: reports: No Symptoms Psychiatric: reports: No Symptoms Vital Signs: Vital Signs Temperature 97.6 F 09/18/19 00:44 Pulse Rate 78 09/18/19 07:29 Respiratory Rate 19 09/18/19 07:29 Blood Pressure 130/77 09/18/19 07:29 O2 Sat by Pulse Oximetry (%) 100 09/18/19 07:29 Constitutional: Yes: Well Nourished, No Distress, Calm Eyes: Yes: WNL, Conjunctiva Clear, EOM Intact HENT: Yes: WNL, Atraumatic, Normocephalic Neck: Yes: WNL, Supple, Trachea Midline Respiratory: Yes: WNL, Regular, CTA Bilaterally Gastrointestinal: Yes: WNL, Normal Bowel Sounds Renal/: Yes: WNL Cardiovascular: Yes: WNL, Regular Rate and Rhythm Musculoskeletal: Yes: WNL Extremities: Yes: WNL Integumentary: Yes: WNL Neurological: Yes: WNL, Alert, Oriented ...Motor Strength: WNL Psychiatric: Yes: WNL, Alert, Oriented - Other Data Labs, Other Data: CBC, BMP 09/18/19 01:05 09/18/19 01:05 Troponin, BNP 09/18/19 09/18/19 01:05 05:40 Troponin I 0.08 H 0.07 H B-Natriuretic Peptide 1883.7 H Troponin, BNP 09/18/19 09/18/19 01:05 05:40 Troponin I 0.08 H 0.07 H B-Natriuretic Peptide 1883.7 H Imaging - Results Chest X-ray: Image Reviewed (cm increased markings) EKG: Image Reviewed (sr lvh) Problem List - Problems (1) Abdominal pain Code(s): R10.9 - UNSPECIFIED ABDOMINAL PAIN Qualifiers: Abdominal location: right upper quadrant Qualified Code(s): R10.11 - Right upper quadrant pain (2) Chest pain Code(s): R07.9 - CHEST PAIN, UNSPECIFIED Qualifiers: Chest pain type: unspecified Qualified Code(s): R07.9 - Chest pain, unspecified (3) Interstitial edema Code(s): R60.9 - EDEMA, UNSPECIFIED (4) SOB (shortness of breath) Code(s): R06.02 - SHORTNESS OF BREATH (5) Suspected 2019 novel coronavirus infection Code(s): Z20.828 - CONTACT W AND EXPOSURE TO OTH VIRAL COMMUNICABLE DISEASES (6) Asthma Code(s): J45.909 - UNSPECIFIED ASTHMA, UNCOMPLICATED Qualifiers: Asthma severity: mild Asthma persistence: intermittent Asthma c omplication type: with acute exacerbation Qualified Code(s): J45.21 - Mild intermittent asthma with (acute) exacerbation (7) Right upper quadrant abdominal pain Code(s): R10.11 - RIGHT UPPER QUADRANT PAIN (8) Upper respiratory infection Code(s): J06.9 - ACUTE UPPER RESPIRATORY INFECTION, UNSPECIFIED Qualifiers: URI type: unspecified URI Qualified Code(s): J06.9 - Acute upper respiratory infection, unspecified Assessment/Plan HTN, HLD, DM, hyperthyroidism, GERD, Asthma admited with systolic CHF exacerbation and low level TNIs. CTA neg for PE ECHO showed CMP EF 15% ? noncompaction sx. Plan Telemetry ASA restart home meds start IV Lasix DVT PLX CMP w/u Will obtain records from dr. Marino Galo office regarding prior cardiac w/u.
[2019-09-18] MEDS ORDERED: PATIENT'S OWN MEDICATION (NON-FORMULARY) (Sitagliptin Phos/Metformin Hcl [Janumet 50-1,000 PO SCH (10:00)
[2019-09-18] MEDS: ASPIRIN COATED 81 MG TABLET.EC PO SCH (11:00)
[2019-09-18] MEDS ORDERED: ASPIRIN 81 MG CHEWABLE TABLETS ONE (11:16)
[2019-09-18] MEDS ORDERED: PANTOPRAZOLE 40 MG TABLET ONE (11:17)
[2019-09-18] MEDS: INSULIN SLIDING SCALE (NOVOLOG) 1 VIAL SQ SCH ×3 (11:24→21:46)
[2019-09-18] MEDS: PANTOPRAZOLE 40 MG TABLET PO SCH (11:24)
[2019-09-18] MEDS: BUDESONIDE/FORMETEROL FUMARATE 160/4.5 mcg INHALER IH SCH ×2 (11:24→21:42)
[2019-09-18] MEDS ORDERED: INSULIN REGULAR HUMAN 100 UNITS/ML *VIAL ONE (11:26)
--- NOTE | 2019-09-18 12:52 | CON.PULM ---
Consult Consult Specialty:: PULM/CCM Referred by:: Hospitalist Reason for Consultation:: SOB - History of Present Illness Chief Complaint: SOB History of Present Illness: 54 F, HTN, HLD, DM, and hyperthyroidism, and GERD. 2 week illness of dry cough, SOB, HINOJOSA, intermittent right sided pleuritic CP, and non-specific GI symptoms. Subjective low grade fever. No hemoptysis or night sweats. No previous history of Asthma. She does smoke (about 1 pack about every 3 to 4). She was prescribed Albuterol recently (about 2 weeks ago: with minimal improvement in symptoms). CT : diffuse interstitial infiltrates: DDX : pulmonary vascular congestion : Given clinical history and presentation can be consistent with capillary leak due to COVID19 infection. - History Source History Provided By: Patient Limitations to Obtaining History: No Limitations - Past Medical History Pulmonary: Yes: Bronchitis. No: Asthma, Cancer, COPD, O2 Dependent, Pneumonia, Previously Intubated, Pulmonary Embolus, Pulmonary Fibrosis, Sleep Apnea - Alcohol/Substance Use Hx Alcohol Use: No - Smoking History Smoking history: Never smoked Have you smoked in the past 12 months: No Aproximately how many cigarettes per day: 20 Home Medications - Allergies Allergies/Adverse Reactions: Allergies Allergy/AdvReac Type Severity Reaction Status Date / Time Penicillins Allergy Severe Swelling Verified 09/18/19 00:44 - Home Medications Home Medications: Ambulatory Orders Aspirin [Aspirin EC] 81 mg PO DAILY 09/23/17 Insulin (Levemir) [Levemir Vial] 20 units SQ BID 09/23/17 Metoprolol Succinate 25 mg PO DAILY 09/23/17 Propylthiouracil 50 mg PO TID 09/23/17 Pantoprazole Sodium [Protonix] 40 mg PO DAILY 11/24/18 Rifaximin [Xifaxan] 550 mg PO TID 11/24/18 Sitagliptin Phos/Metformin HCl [Janumet 50-1,000 mg Tablet] 1 each PO BID 11/24/18 Valsartan/Hydrochlorothiazide [Valsartan-Hctz 80-12.5 mg Tab] 1 each PO DAILY 11/24/18 Albuterol Sulfate Inhaler - 90 mcg IH ASDIR 09/18/19 Linaclotide [Linzess] 290 mcg PO DAILY 09/18/19 Novolog Vial Sliding Scale - SQ ACHS 09/18/19 SYMBICORT 160/4.5mcg - 2 puff IH BID 09/18/19 Review of Systems - Review of Systems Constitutional: reports: Chills, Fever, Malaise, Weakness. denies: Night Sweats, Unintentional Wgt. Loss Eyes: reports: No Symptoms HENT: reports: No Symptoms Neck: reports: No Symptoms Cardiovascular: reports: Chest Pain, Shortness of Breath. denies: Edema, P alpitations Respiratory: reports: Cough, SOB, SOB on Exertion. denies: Hemoptysis, Orthopnea, PND, Snoring, Wheezing Gastrointestinal: reports: Abdominal Pain, Indigestion, Nausea. denies: Rectal Bleeding, Vomiting Blood Genitourinary: reports: No Symptoms Breasts: reports: No Symptoms Reported Musculoskeletal: reports: No Symptoms Integumentary: reports: No Symptoms Neurological: reports: No Symptoms Endocrine: reports: No Symptoms Hematology/Lymphatic: reports: No Symptoms Psychiatric: reports: No Symptoms Physical Exam Vital Sings: Vital Signs Temperature 98.5 F 09/18/19 11:25 Pulse Rate 78 09/18/19 07:29 Respiratory Rate 19 09/18/19 07:29 Blood Pressure 130/77 09/18/19 07:29 O2 Sat by Pulse Oximetry (%) 100 09/18/19 07:29 Constitutional: Yes: Mild Distress Eyes: Yes: Conjunctiva Clear, EOM Intact HENT: Yes: Atraumatic, Normocephalic Neck: Yes: Supple, Trachea Midline Cardiovascular: Yes: Regular Rate and Rhythm Respiratory: Yes: Cough, Diminished, On Nasal O2, Rhonchi, SOB, SOB on Exertion. No: Accessory Muscle Use, Rales, Stridor, Tachypnea, Wheezes ...Inspection: Yes: WNL ...Clubbing: No Gastrointestinal: Yes: Normal Bowel Sounds, Soft, Abdomen, Obese Renal/: Yes: WNL Musculoskeletal: Yes: WNL Extremities: Yes: WNL Edema: No Peripheral Pulses WNL: Yes Integumentary: Yes: WNL Neurological: Yes: WNL, Alert, Oriented ...Motor Strength: WNL Psychiatric: Yes: WNL, Alert, Oriented Labs: CBC, BMP 09/18/19 01:05 09/18/19 01:05 Imaging - Results Chest X-ray: Report Reviewed, Image Reviewed Cat Scan: Report Reviewed, Image Reviewed Problem List - Problems (1) Interstitial edema Code(s): R60.9 - EDEMA, UNSPECIFIED (2) Abdominal pain Code(s): R10.9 - UNSPECIFIED ABDOMINAL PAIN Qualifiers: Abdominal location: right upper quadrant Qualified Code(s): R10.11 - Right upper quadrant pain (3) SOB (shortness of breath) Code(s): R06.02 - SHORTNESS OF BREATH (4) Upper respiratory infection Code(s): J06.9 - ACUTE UPPER RESPIRATORY INFECTION, UNSPECIFIED Qualifiers: URI type: unspecified URI Qualified Code(s): J06.9 - Acute upper respiratory infection, unspecified Assessment/Plan IMP: Clinical and radiographic suspicion of COVID19 infection Do not suspect Asthma R/O COPD Follow COVID19 serology No nebulizers for now If CRP > 10 : Medrol May need Lasix Isolation VTE prophylaxis No smoking Will need outpatient PFTs once stable Will follow closely Thank you. Dr Hawk
[2019-09-18 13:35] LABS: LDH 306 U/L (84-246)
[2019-09-18] MEDS: RIFAXIMIN 550 MG TABLET (UD) PO SCH ×2 (13:35→21:43)
[2019-09-18] MEDS: PROPYLTHIOURACIL 50 MG TABLET (UD) PO SCH ×2 (13:35→21:43)
[2019-09-18 13:39] LABS: BASO % 0.5 % (0-2.0); EOS % 1.7 % (0-4.5); HEMATOCRIT 39.3 % (32.4-45.2); HEMOGLOBIN 12.7 GM/dL (10.7-15.3); LYMPH % 40.1 % (8-40); MCH 27.2 pg (25.7-33.7); MCHC 32.2 g/dl (32.0-36.0); MEAN CELL VOLUME 84.3 fl (80-96); MEAN PLT VOLUME 10.2 fl (7.5-11.1); NEUT % 49.7 % (42.8-82.8); PLATELET COUNT 181 K/MM3 (134-434); RBC 4.66 M/mm3 (3.60-5.2); RDW 15.9 % (11.6-15.6); WHITE BLOOD COUNT 10.6 K/mm3 (4.0-10.0)
[2019-09-18 14:02] LABS: ALBUMIN 3.3 g/dl (3.4-5.0); BILIRUBIN,TOTAL 0.8 mg/dL (0.2-1); CALCIUM 8.9 mg/dL (8.5-10.1); CREATININE 0.9 mg/dL (0.55-1.3); POTASSIUM 4.4 mmol/L (3.5-5.1)
--- NOTE | 2019-09-18 14:51 | EKG ---
Test Reason : Blood Pressure : / mmHG Vent. Rate : 079 BPM Atrial Rate : 079 BPM P-R Int : 190 ms QRS Dur : 098 ms QT Int : 442 ms P-R-T Axes : 073 -10 066 degrees QTc Int : 506 ms NORMAL SINUS RHYTHM NONSPECIFIC T WAVE ABNORMALITY RIGHT ATRIAL ENLARGEMENT PROLONGED QT ABNORMAL ECG WHEN COMPARED WITH ECG OF 18-SEP-2019 00:55, NO SIGNIFICANT CHANGE WAS FOUND Confirmed by PILAR MARIE MD ([id number]) on 09/18/2019 2:51:28 PM Referred By: Confirmed By:PILAR MARIE MD
--- NOTE | 2019-09-18 14:52 | EKG ---
Test Reason : Blood Pressure : / mmHG Vent. Rate : 085 BPM Atrial Rate : 085 BPM P-R Int : 184 ms QRS Dur : 094 ms QT Int : 418 ms P-R-T Axes : 063 -20 094 degrees QTc Int : 497 ms NORMAL SINUS RHYTHM MODERATE VOLTAGE CRITERIA FOR LVH, MAY BE NORMAL VARIANT NONSPECIFIC ST ABNORMALITY PROLONGED QT ABNORMAL ECG WHEN COMPARED WITH ECG OF 12-MAR-2019 19:12, NO SIGNIFICANT CHANGE WAS FOUND Confirmed by PILAR MARIE MD ([id number]) on 09/18/2019 2:52:22 PM Referred By: Confirmed By:PILAR MARIE MD
--- NOTE | 2019-09-18 15:32 | HP ---
Admitting History and Physical - Primary Care Physician PCP: Naya Byrne - Admission Chief Complaint: sob History of Present Illness: 54 year old female, with a significant PMH of HTN, HLD, DM, hyperthyroidism, GERD, and asthma, who presents to the ED for evaluation of SOB for 2 weeks. Patient complains of SOB, which she is concerned is pneumonia. She endorses right sided chest pain that is onset when she feels short of breath. Patient saw her PCP for these complaints yesterday, and now is on day 2 of azithromycin. Denies fever, chills, cough. - Past Medical History Pulmonary: Yes: Bronchitis. No: Asthma, Cancer, COPD, O2 Dependent, Pneumonia, Previously Intubated, Pulmonary Embolus, Pulmonary Fibrosis, Sleep Apnea - Smoking History Smoking history: Never smoked Have you smoked in the past 12 months: No Aproximately how many cigarettes per day: 20 - Alcohol/Substance Use Hx Alcohol Use: No Home Medications - Allergies Allergies/Adverse Reactions: Allergies Allergy/AdvReac Type Severity Reaction Status Date / Time Penicillins Allergy Severe Swelling Verified 09/18/19 00:44 - Home Medications Home Medications: Ambulatory Orders Aspirin [Aspirin EC] 81 mg PO DAILY 09/23/17 Insulin (Levemir) [Levemir Vial] 20 units SQ BID 09/23/17 Metoprolol Succinate 25 mg PO DAILY 09/23/17 Propylthiouracil 50 mg PO TID 09/23/17 Pantoprazole Sodium [Protonix] 40 mg PO DAILY 11/24/18 Rifaximin [Xifaxan] 550 mg PO TID 11/24/18 Sitagliptin Phos/Metformin HCl [Janumet 50-1,000 mg Tablet] 1 each PO BID 11/24/18 Valsartan/Hydrochlorothiazide [Valsartan-Hctz 80-12.5 mg Tab] 1 each PO DAILY 11/24/18 Albuterol Sulfate Inhaler - 90 mcg IH ASDIR 09/18/19 Linaclotide [Linzess] 290 mcg PO DAILY 09/18/19 Novolog Vial Sliding Scale - SQ ACHS 09/18/19 SYMBICORT 160/4.5mcg - 2 puff IH BID 09/18/19 Physical Examination Vital Signs: Vital Signs Temperature 98.5 F 09/18/19 11:25 Pulse Rate 78 09/18/19 07:29 Respiratory Rate 19 09/18/19 07:29 Blood Pressure 130/77 09/18/19 07:29 O2 Sat by Pulse Oximetry (%) 100 09/18/19 07:29 Constitutional: Yes: No Distress HENT: Yes: Atraumatic Neck: Yes: Supple Cardiovascular: Yes: Regular Rate and Rhythm Respiratory: Yes: Rhonchi Gastrointestinal: Yes: Normal Bowel Sounds Extremities: Yes: WNL Edema: No Neurological: Yes: Alert, Oriented Labs: CBC, BMP 09/18/19 13:00 09/18/19 13:00 Imaging - Results X-ray: Report Reviewed Cat Scan: Report Reviewed Problem List - Problems (1) Suspected 2019 novel coronavirus infection Assessment/Plan: id consult negative pressure room quarantine Code(s): Z20.828 - CONTACT W AND EXPOSURE TO OTH VIRAL COMMUNICABLE DISEASES (2) Abdominal pain Code(s): R10.9 - UNSPECIFIED ABDOMINAL PAIN Qualifiers: Abdominal location: right upper quadrant Qualified Code(s): R10.11 - Right upper quadrant pain (3) Chest pain Assessment/Plan: fu troponins cardio consult tele monitoring Code(s): R07.9 - CHEST PAIN, UNSPECIFIED Qualifiers: Chest pain type: unspecified Qualified Code(s): R07.9 - Chest pain, unspecified (4) SOB (shortness of breath) Code(s): R06.02 - SHORTNESS OF BREATH (5) Asthma Assessment/Plan: duo nebs q4 prn Code(s): J45.909 - UNSPECIFIED ASTHMA, UNCOMPLICATED Qualifiers: Asthma severity: mild Asthma persistence: intermittent Asthma complication type: with acute exacerbation Qualified Code(s): J45.21 - Mild intermittent asthma with (acute) exacerbation (6) Diabetes Code(s): E11.9 - TYPE 2 DIABETES MELLITUS WITHOUT COMPLICATIONS (7) Hyperthyroidism Assessment/Plan: on meds stable Code(s): E05.90 - THYROTOXICOSIS, UNSP WITHOUT THYROTOXIC CRISIS OR STORM (8) HTN (hypertension) Assessment/Plan: on meds monitor Code(s): I10 - ESSENTIAL (PRIMARY) HYPERTENSION Assessment/Plan Laboratory Tests 09/18/19 09/18/19 09/18/19 01:05 01:05 01:32 WBC 10.2 H RBC 4.77 Hgb 13.0 Hct 40.2 MCV 84.2 MCH 27.3 MCHC 32.4 RDW 15.7 H Plt Count 206 D MPV 9.9 Absolute Neuts (auto) 6.2 Neutrophils % 60.4 Lymphocytes % 27.9 D Monocytes % 9.9 Eosinophils % 1.3 Basophils % 0.5 Nucleated RBC % 0 D-Dimer Sodium 140 Potassium 3.9 Chloride 106 Carbon Dioxide 25 Anion Gap 9 BUN 14.2 Creatinine 1.0 Est GFR (CKD-EPI)AfAm 75.01 Est GFR (CKD-EPI)NonAf 64.72 POC Glucometer Random Glucose 233 H Calcium 9.2 Total Bilirubin 0.4 AST 170 H ALT 172 H Alkaline Phosphatase 110 LD Total Creatine Kinase Creatine Kinase Index CK-MB (CK-2) Troponin I 0.08 H C-Reactive Protein B-Natriuretic Peptide 1883.7 H Total Protein 7.2 Albumin 3.5 Lipase 176 Serum , Qual Negative 09/18/19 09/18/19 09/18/19 05:40 05:40 11:21 WBC RBC Hgb Hct MCV MCH MCHC RDW Plt Count MPV Absolute Neuts (auto) Neutrophils % Lymphocytes % Monocytes % Eosinophils % Basophils % Nucleated RBC % D-Dimer 819 H Sodium Potassium Chloride Carbon Dioxide Anion Gap BUN Creatinine Est GFR (CKD-EPI)AfAm Est GFR (CKD-EPI)NonAf POC Glucometer 205 Random Glucose Calcium Total Bilirubin AST ALT Alkaline Phosphatase LD Total 306 H Creatine Kinase 171 Creatine Kinase Index 3.0 CK-MB (CK-2) 5.3 H Troponin I 0.07 H C-Reactive Protein < 0.3 B-Natriuretic Peptide Total Protein Albumin Lipase Serum , Qual 09/18/19 09/18/19 13:00 13:00 WBC 10.6 H RBC 4.66 Hgb 12.7 Hct 39.3 MCV 84.3 MCH 27.2 MCHC 32.2 RDW 15.9 H Plt Count 181 MPV 10.2 Absolute Neuts (auto) 5.2 Neutrophils % 49.7 Lymphocytes % 40.1 H D Monocytes % 8.0 Eosinophils % 1.7 Basophils % 0.5 Nucleated RBC % 0 D-Dimer Sodium 136 Potassium 4.4 Chloride 104 Carbon Dioxide 26 Anion Gap 7 L BUN 15.0 Creatinine 0.9 Est GFR (CKD-EPI)AfAm 85.20 Est GFR (CKD-EPI)NonAf 73.51 POC Glucometer Random Glucose 191 H Calcium 8.9 Total Bilirubin 0.8 AST 75 H ALT 139 H Alkaline Phosphatase 90 LD Total Creatine Kinase Creatine Kinase Index CK-MB (CK-2) Troponin I C-Reactive Protein B-Natriuretic Peptide Total Protein 7.0 Albumin 3.3 L Lipase Serum , Qual Active Medications Generic Name Dose Route Start Last Admin Trade Name Freq PRN Reason Stop Dose Admin Aspirin 81 mg 09/18/19 10:00 09/18/19 11:00 Ecotrin - PO 81 mg DAILY JACLYN Administration Budesonide/Formoterol Fumarate 2 puff 09/18/19 10:00 09/18/19 11:24 Symbicort 160/4.5mcg - IH Not Given BID [facility] Insulin Aspart 1 vial 09/18/19 11:00 09/18/19 11:24 Novolog Vial Sliding Scale - SQ 4 units ACHS JACLYN Administration Protocol Insulin Detemir 20 units 09/18/19 22:00 Levemir Vial SQ 0700,2200 [facility] Metformin HCl 1,000 mg 09/18/19 16:30 Glucophage - PO 0700,1630 [facility] Metoprolol Succinate 25 mg 09/18/19 10:00 09/18/19 11:24 Toprol Xl - PO 25 mg DAILY JACLYN Administration Pantoprazole Sodium 40 mg 09/18/19 10:00 09/18/19 11:24 Protonix - PO 40 mg DAILY JACLYN Administration Propylthiouracil 50 mg 09/18/19 14:00 09/18/19 13:35 Ptu - PO 50 mg TID JACLYN Administration Rifaximin 550 mg 09/18/19 14:00 09/18/19 13:35 Xifaxan - PO 550 mg TID JACLYN Administration Sitagliptin Phosphate 50 mg 09/18/19 16:30 Januvia - PO 0700,1630 [facility] COVERING FOR DR BYRNE TODAY
--- NOTE | 2019-09-18 15:43 | ECHO ---
Version: 1 Name: JANEEN BLEDSOE Exam: Adult Echocardiogram Study Date: 09/18/2019, 2:37 PM Age: 54 Years MMode/2D Measurements & Calculations IVSd: 0.83 cm LVIDs: 4.5 cm LVIDd: 5.3 cm LVPWd: 0.91 cm LAV (MOD-bp): 74.0 ml ACS: 1.69 cm Ao root diam: 2.7 cm LVOT diam: 1.97 cm LA dimension: 4.4 cm Doppler Measurements & Calculations MV E max landry: 71.3 cm/sec Med E/e': 19.8 MV A max landry: 20.1 cm/sec Med Peak E' Landry: 3.6 cm/sec MV E/A: 3.6 Lat E/e': 12.4 Lat Peak E' Landry: 5.8 cm/sec MR max P.0 mmHg Ao max P.47 mmHg CHET(I,D): 1.69 cm Ao mean P.30 mmHg LV V1 mean: 27.7 cm/sec Ao V2 max: 78.5 cm/sec LV V1 mean P.34 mmHg PI end-d landry: 186.0 cm/sec TR max landry: 268.5 cm/sec TR max P.0 mmHg Left Ventricle The left ventricle is grossly normal size. Left ventricular systolic function is severely reduced. E jection Fraction = <15%. In some views, there is a suggestion of left ventricular non-compaction. Recommend outpatient echo with contrast or cardiac MRI. There is severe global hypokinesis of the left ventric le. Right Ventricle The right ventricle is grossly normal size. The right ventricular systolic function is mildly reduce d. Atria The left atrium is mildly dilated. Mitral Valve The mitral valve is normal in structure and function. There is no mitral valve stenosis. There is mi ld mitral regurgitation. Tricuspid Valve The tricuspid valve is normal in structure and function. There is moderate tricuspid regurgitation. Right ventricular systolic pressure is elevated at 30-40mmHg. Aortic Valve The aortic valve opens well. No hemodynamically significant valvular aortic stenosis. No aortic regu rgitation is present. Pulmonic Valve The pulmonic valve is not well seen, but is grossly normal. Great Vessels The aortic root is normal size. Pericardium/Pleura There is no pericardial effusion. Summary Statements Left ventricular systolic function is severely reduced. Ejection Fraction = <15%. There is severe global hypokinesis of the left ventricle. In some views, there is a suggestion of left ventricular non-compaction. Recommend outpatient echo w ith contrast or cardiac MRI. The right ventricular systolic function is mildly reduced. The left atrium is mildly dilated. There is mild mitral regurgitation. There is moderate tricuspid regurgitation. Right ventricular systolic pressure is elevated at 30-40mmHg. MD Purcell *Allie 09/18/2019, 3:42 PM Ordering Physician: Naya Byrne Referring Physician: NAYA BYRNE Performed By: Shoshana Roldan
[2019-09-18] MEDS ORDERED: sitaGLIPtin PHOSPHATE 50 MG TABLET ONE (16:14)
[2019-09-18] MEDS ORDERED: metFORMIN HCL 500 MG TABLET (FP) ONE (16:14)
[2019-09-18] MEDS: metFORMIN HCL 500 MG TABLET (FP) PO SCH (16:21)
[2019-09-18] MEDS: sitaGLIPtin PHOSPHATE 50 MG TABLET PO SCH (16:21)
[2019-09-18] MEDS: FUROSEMIDE 40 MG/4 ML INJECTABLE VIAL IVPUSH SCH (17:21)
--- NOTE | 2019-09-18 20:03 | CON.GI ---
Consult - History of Present Illness History of Present Illness: The pt is a 54F w/ a PMH of HTN, HLD, DM, hyperthyroidism, GERD, Asthma who presents for evaluation of 2 weeks of intermittent SOB. The pt reports interm ittent episodes of shortness of breath that last approximately 10 minutes at a time. They are not related to exertion any trigger she can identify. She reports associated R chest wall pain with deep inspiration. The patient was asked to be seen because of abdominal pain At this time she denies abdominal pain, nausea, vomiting, dysphagia,rectal bleeding and melena. - Past Medical History Pulmonary: Yes: Bronchitis. No: Asthma, Cancer, COPD, O2 Dependent, Pneumonia, Previously Intubated, Pulmonary Embolus, Pulmonary Fibrosis, Sleep Apnea - Alcohol/Substance Use Hx Alcohol Use: No - Smoking History Smoking history: Never smoked Have you smoked in the past 12 months: No Aproximately how many cigarettes per day: 20 Home Medications - Allergies Allergies/Adverse Reactions: Allergies Allergy/AdvReac Type Severity Reaction Status Date / Time Penicillins Allergy Severe Swelling Verified 09/18/19 00:44 - Home Medications Home Medications: Ambulatory Orders Aspirin [Aspirin EC] 81 mg PO DAILY 09/23/17 Insulin (Levemir) [Levemir Vial] 20 units SQ BID 09/23/17 Metoprolol Succinate 25 mg PO DAILY 09/23/17 Propylthiouracil 50 mg PO TID 09/23/17 Pantoprazole Sodium [Protonix] 40 mg PO DAILY 11/24/18 Rifaximin [Xifaxan] 550 mg PO TID 11/24/18 Sitagliptin Phos/Metformin HCl [Janumet 50-1,000 mg Tablet] 1 each PO BID 11/24/18 Valsartan/Hydrochlorothiazide [Valsartan-Hctz 80-12.5 mg Tab] 1 each PO DAILY 11/24/18 Albuterol Sulfate Inhaler - 90 mcg IH ASDIR 09/18/19 Linaclotide [Linzess] 290 mcg PO DAILY 09/18/19 Novolog Vial Sliding Scale - SQ ACHS 09/18/19 SYMBICORT 160/4.5mcg - 2 puff IH BID 09/18/19 Physical Exam-GI Vital Signs: Vital Signs Temperature 97.9 F 09/18/19 17:43 Pulse Rate 83 09/18/19 17:43 Respiratory Rate 20 09/18/19 17:43 Blood Pressure 129/87 09/18/19 17:43 O2 Sat by Pulse Oximetry (%) 100 09/18/19 17:43 Constitutional: Yes: Well Nourished, Poor Hygeine HENT: Yes: Atraumatic, Tonsillar Exudate Cardiovascular: Yes: Regular Rate and Rhythm Respiratory: Yes: CTA Bilaterally ...Palpate: Yes: Soft. No: Guarding, Hepatomegaly, Mass, Pulsatile Mass, Tenderness Labs: CBC, BMP 09/18/19 13:00 09/18/19 13:00 Problem List - Problems (1) Abdominal pain Assessment/Plan: --resolved R> patient had a previous EGD and colonoscopy 2 years ago. There was mild gastritis and mild proctitis please recall as necessary Code(s): R10.9 - UNSPECIFIED ABDOMINAL PAIN Qualifiers: Abdominal location: right upper quadrant Qualified Code(s): R10.11 - Right upper quadrant pain
[2019-09-18] MEDS: INSULIN (LEVEMIR) 100 UNITS/ML UNITS SQ SCH (21:46)
[2019-09-19] MEDS: PROPYLTHIOURACIL 50 MG TABLET (UD) PO SCH ×3 (06:23→21:52)
[2019-09-19] MEDS: RIFAXIMIN 550 MG TABLET (UD) PO SCH ×4 (06:23→21:53)
[2019-09-19] MEDS: metFORMIN HCL 500 MG TABLET (FP) PO SCH ×2 (06:25→18:02)
[2019-09-19] MEDS: INSULIN SLIDING SCALE (NOVOLOG) 1 VIAL SQ SCH ×4 (06:25→21:53)
[2019-09-19] MEDS: INSULIN (LEVEMIR) 100 UNITS/ML UNITS SQ SCH ×2 (06:25→21:52)
[2019-09-19] MEDS: sitaGLIPtin PHOSPHATE 50 MG TABLET PO SCH ×2 (06:26→18:02)
[2019-09-19] MEDS: PANTOPRAZOLE 40 MG TABLET PO SCH (09:07)
[2019-09-19] MEDS: ASPIRIN COATED 81 MG TABLET.EC PO SCH (09:07)
[2019-09-19] MEDS: FUROSEMIDE 40 MG/4 ML INJECTABLE VIAL IVPUSH SCH (09:07)
[2019-09-19] MEDS: BUDESONIDE/FORMETEROL FUMARATE 160/4.5 mcg INHALER IH SCH ×2 (09:12→21:55)
[2019-09-19] MEDS ORDERED: PT OWN MED DRAWER 7, Y5N ONE ×5 (10:40→21:07)
--- NOTE | 2019-09-19 11:30 | CON.ID ---
Consult Consult Specialty:: infectious diseases Referred by:: Reason for Consultation:: sob,weakness - History of Present Illness Chief Complaint: sob History of Present Illness: 54 year old female, with a significant PMH of HTN, HLD, DM, hyperthyroidism, GERD, and asthma, who came for evaluation of SOB for 2 weeks. Patient complains of SOB, which she is concerned is pneumonia. She endorses right sided chest pain that is onset when she feels short of breath. Patient saw her PCP for these complaints yesterday, and now is on day 2 of azithromycin. Denies fever, chills, cough. 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 No: Asthma, Cancer, COPD, O2 Dependent, Pneumonia, Previously Intubated, Pulmonary Embolus, Pulmonary Fibrosis, Sleep Apnea - Alcohol/Substance Use Hx Alcohol Use: No - Smoking History Smoking history: Never smoked Have you smoked in the past 12 months: No Aproximately how many cigarettes per day: 20 Home Medications - Allergies Allergies/Adverse Reactions: Allergies Allergy/AdvReac Type Severity Reaction Status Date / Time Penicillins Allergy Severe Swelling Verified 09/18/19 00:44 - Home Medications Home Medications: Ambulatory Orders Aspirin [Aspirin EC] 81 mg PO DAILY 09/23/17 Insulin (Levemir) [Levemir Vial] 20 units SQ BID 09/23/17 Metoprolol Succinate 25 mg PO DAILY 09/23/17 Propylthiouracil 50 mg PO TID 09/23/17 Pantoprazole Sodium [Protonix] 40 mg PO DAILY 11/24/18 Rifaximin [Xifaxan] 550 mg PO TID 11/24/18 Sitagliptin Phos/Metformin HCl [Janumet 50-1,000 mg Tablet] 1 each PO BID 11/24/18 Valsartan/Hydrochlorothiazide [Valsartan-Hctz 80-12.5 mg Tab] 1 each PO DAILY 11/24/18 Albuterol Sulfate Inhaler - 90 mcg IH ASDIR 09/18/19 Linaclotide [Linzess] 290 mcg PO DAILY 09/18/19 Novolog Vial Sliding Scale - SQ ACHS 09/18/19 SYMBICORT 160/4.5mcg - 2 puff IH BID 09/18/19 Review of Systems - Review of Systems Constitutional: reports: No Symptoms Eyes: reports: No Symptoms HENT: reports: No Symptoms Neck: reports: No Symptoms Cardiovascular: reports: No Symptoms Respiratory: reports: SOB, SOB on Exertion Gastrointestinal: reports: No Symptoms Genitourinary: reports: No Symptoms Musculoskeletal: reports: No Symptoms Integumentary: reports: No Symptoms Neurological: reports: No Symptoms Endocrine: reports: No Symptoms Hematology/Lymphatic: reports: No Symptoms Psychiatric: reports: No Symptoms Physical Exam Vital Signs: Vital Signs Temperature 98 F 09/19/19 09:00 Pulse Rate 78 09/19/19 09:00 Respiratory Rate 18 09/19/19 09:00 Blood Pressure 143/82 09/19/19 09:00 O2 Sat by Pulse Oximetry (%) 100 09/18/19 21:00 Constitutional: Yes: Calm, Mild Distress Eyes: Yes: Conjunctiva Clear, EOM Intact HENT: Yes: Atraumatic, Normocephalic Neck: Yes: Supple, Trachea Midline Cardiovascular: Yes: Regular Rate and Rhythm Respiratory: Yes: Regular, CTA Bilaterally, On Nasal O2 Gastrointestinal: Yes: Normal Bowel Sounds, Soft Neurological: Yes: Alert, Oriented Psychiatric: Yes: Alert, Oriented Labs: CBC, BMP 09/18/19 13:00 09/18/19 13:00 Imaging - Results Chest X-ray: Report Reviewed, Image Reviewed Cat Scan: Report Reviewed, Image Reviewed Assessment/Plan Problem List - Problems (1) Suspected 2019 novel coronavirus infection Code(s): Z20.828 - CONTACT W AND EXPOSURE TO OTH VIRAL COMMUNICABLE DISEASES (2) Abdominal pain Code(s): R10.9 - UNSPECIFIED ABDOMINAL PAIN Qualifiers: Abdominal location: right upper quadrant Qualified Code(s): R10.11 - Right upper quadrant pain (3) Chest pain Code(s): R07.9 - CHEST PAIN, UNSPECIFIED Qualifiers: Chest pain type: unspecified Qualified Code(s): R07.9 - Chest pain, unspecified (4) SOB (shortness of breath) Code(s): R06.02 - SHORTNESS OF BREATH (5) Asthma Code(s): J45.909 - UNSPECIFIED ASTHMA, UNCOMPLICATED Qualifiers: Asthma severity: mild Asthma persistence: intermittent Asthma complication type: with acute exacerbation Qualified Code(s): J45.21 - Mild intermittent asthma with (acute) exacerbation (6) Diabetes Code(s): E11.9 - TYPE 2 DIABETES MELLITUS WITHOUT COMPLICATIONS (7) Hyperthyroidism Code(s): E05.90 - THYROTOXICOSIS, UNSP WITHOUT THYROTOXIC CRISIS OR STORM (8) HTN (hypertension) Code(s): I10 - ESSENTIAL (PRIMARY) HYPERTENSION plan will start her on levaquin await for covid results monitor resp status rest as per the team
--- NOTE | 2019-09-19 12:15 | PN ---
Progress Note, Physician Chief Complaint: Pt A&Ox3; less leg swelling, but still SOB on minimal exertion. History of Present Illness: Ms. Jules is a 54 yr old black woman w/ a PMH of HTN, HLD, DM, hyperthyroidism (on PTU), GERD, Asthma, overweight (weighed 275 lbs less than a year ago; started losing "a lot of weight fast from, I guess, my DM and thyroid condition") who presents for evaluation of 2 weeks of intermittent SOB. The pt reports intermittent episodes of shortness of breath that last approximately 10 minutes at a time. They are not related to exertion any trigger she can identify. She reports associated R chest wall pain with deep inspiration. She denies fever, cough, abd pain, N/V/D, dysuria, hematuria. Of note, she was provided an albuterol inhaler yesterday that she has been using every couple of hours. She states she has not had anything happen like this before. Denies history of IA or stroke Denies illicit drugs. 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 Reportedly had "routine" stress treadmill test with PMD about a year ago that was unremarkable. - Current Medication List Current Medications: Active Medications Aspirin (Ecotrin -) 81 mg PO DAILY [facility] Last Admin: 09/19/19 09:07 Dose: 81 mg Documented by: Budesonide/Formoterol Fumarate (Symbicort 160/4.5mcg -) 2 puff IH BID [facility] Last Admin: 09/19/19 09:12 Dose: 2 puff Documented by: Furosemide (Lasix Injection -) 40 mg IVPUSH DAILY [facility] Last Admin: 09/19/19 09:07 Dose: 40 mg Documented by: Insulin Aspart (Novolog Vial Sliding Scale -) 1 vial SQ ACHS [facility]; Protocol Last Admin: 09/19/19 11:57 Dose: 2 units Documented by: Insulin Detemir (Levemir Vial) 20 units SQ 0700,2200 [facility] Last Admin: 09/19/19 06:25 Dose: Not Given Documented by: Levofloxacin (Levaquin) 750 mg PO DAILY [facility] Metformin HCl (Glucophage -) 1,000 mg PO 0700,1630 [facility] Last Admin: 09/19/19 06:25 Dose: Not Given Documented by: Metoprolol Succinate (Toprol Xl -) 25 mg PO DAILY [facility] Last Admin: 09/19/19 09:07 Dose: 25 mg Documented by: Pantoprazole Sodium (Protonix -) 40 mg PO DAILY [facility] Last Admin: 09/19/19 09:07 Dose: 40 mg Documented by: Propylthiouracil (Ptu -) 50 mg PO TID [facility] Last Admin: 09/19/19 06:23 Dose: 50 mg Documented by: Rifaximin (Xifaxan -) 550 mg PO TID [facility] Last Admin: 09/19/19 06:23 Dose: 550 mg Documented by: Sitagliptin Phosphate (Januvia -) 50 mg PO 0700,1630 [facility] Last Admin: 09/19/19 06:26 Dose: Not Given Documented by: - Objective Vital Signs: Vital Signs Temperature 98 F 09/19/19 09:00 Pulse Rate 78 09/19/19 09:00 Respiratory Rate 18 09/19/19 09:00 Blood Pressure 143/82 09/19/19 09:00 O2 Sat by Pulse Oximetry (%) 100 09/18/19 21:00 Constitutional: Yes: Anxious Eyes: Yes: WNL Neck: Yes: Other Cardiovascular: Yes: JVD, S1, S2, S3 Respiratory: Yes: Diminished (bilaterally), SOB on Exertion, Tachypnea Gastrointestinal: Yes: Soft (excess truncal adiposity) ...Rectal Exam: Yes: Deferred Genitourinary: No: Anuria Breast(s): Yes: WNL Musculoskeletal: Yes: Muscle Weakness Extremities: Yes: WNL Edema: No Peripheral Pulses WNL: Yes Integumentary: Yes: WNL Neurological: Yes: WNL Psychiatric: Yes: WNL Labs: CBC, BMP 09/18/19 13:00 09/18/19 13:00 Abnormal Lab Results 09/18/19 09/18/19 09/18/19 05:40 13:00 13:00 WBC 10.6 H RDW 15.9 H Lymphocytes % 40.1 H D Anion Gap 7 L Random Glucose 191 H AST 75 H ALT 139 H LD Total 306 H CK-MB (CK-2) 5.3 H Troponin I 0.07 H Albumin 3.3 L - ....Imaging Chest X-ray: Image Reviewed Cat Scan: Image Reviewed EKG: Image Reviewed Assessment/Plan HTN, HLD, DM, hyperthyroidism, GERD, Asthma, formerly morbid obesity, admited with systolic CHF exacerbation and low level TNIs. Pt says symptoms started only a few weeks ago, as did the bilateral LE edema. CTA neg for PE ECHO showed CMP EF 15% ? noncompaction sx. Plan Telemetry ASA Start Entresto On metoprolol ("asthma" hx likely CHF) On IV Lasix; plan to add spironolactone. Start nicotein patch DVT PLX Will obtain records from dr. Marino Galo office regarding prior cardiac w/u (though pt denies having seen a environmental services assistant, she had a stress test with PMD's office a year ago). Will plan on her seeing heart failure group as outpatient.
--- NOTE | 2019-09-19 13:42 | EKG ---
Test Reason : Blood Pressure : / mmHG Vent. Rate : 079 BPM Atrial Rate : 079 BPM P-R Int : 200 ms QRS Dur : 102 ms QT Int : 448 ms P-R-T Axes : 070 -15 083 degrees QTc Int : 513 ms NORMAL SINUS RHYTHM LEFT ATRIAL ENLARGEMENT LEFT VENTRICULAR HYPERTROPHY NONSPECIFIC T WAVE ABNORMALITY PROLONGED QT ABNORMAL ECG WHEN COMPARED WITH ECG OF 18-SEP-2019 05:46, NO SIGNIFICANT CHANGE WAS FOUND Confirmed by MD JACK, ROMIE ([id number]) on 09/19/2019 1:42:08 PM Referred By: Josey VALERO Confirmed By:ROMIE SANTIAGO MD
[2019-09-19] MEDS: levoFLOXacin 750 MG TABLET PO SCH (14:31)
[2019-09-19] MEDS: SACUBITRIL/VALSARTAN 24 MG-26 MG TABLET PO SCH ×2 (14:31→21:52)
[2019-09-19] MEDS: NICOTINE 14 MG/24 HOURS TOPICAL PATCH TD SCH (14:31)
[2019-09-19] MEDS ORDERED: ACETAMINOPHEN 325 MG TABLET (FP) PO PRN (20:34)
--- NOTE | 2019-09-19 20:43 | PN ---
Progress Note, Physician History of Present Illness: Pt still w/ intermittent SOB - Current Medication List Current Medications: Active Medications Acetaminophen (Tylenol -) 650 mg PO Q6H PRN PRN Reason: PAIN 1-5 Aspirin (Asa -) 81 mg PO DAILY [facility] Budesonide/Formoterol Fumarate (Symbicort 160/4.5mcg -) 2 puff IH BID [facility] Last Admin: 09/19/19 09:12 Dose: 2 puff Documented by: Furosemide (Lasix Injection -) 40 mg IVPUSH DAILY [facility] Last Admin: 09/19/19 09:07 Dose: 40 mg Documented by: Insulin Aspart (Novolog Vial Sliding Scale -) 1 vial SQ ACHS [facility]; Protocol Last Admin: 09/19/19 18:01 Dose: 2 units Documented by: Insulin Detemir (Levemir Vial) 20 units SQ 0700,2200 [facility] Last Admin: 09/19/19 06:25 Dose: Not Given Documented by: Levofloxacin (Levaquin) 750 mg PO DAILY [facility] Last Admin: 09/19/19 14:31 Dose: 750 mg Documented by: Metformin HCl (Glucophage -) 1,000 mg PO 0700,1630 [facility] Last Admin: 09/19/19 18:02 Dose: 1,000 mg Documented by: Metoprolol Succinate (Toprol Xl -) 25 mg PO DAILY [facility] Last Admin: 09/19/19 09:07 Dose: 25 mg Documented by: Nicotine (Nicoderm Patch -) 14 mg TD DAILY [facility] Last Admin: 09/19/19 14:31 Dose: 14 mg Documented by: Ondansetron HCl (Zofran Injection) 4 mg IVPUSH Q6H PRN PRN Reason: NAUSEA AND/OR VOMITING Pantoprazole Sodium (Protonix -) 40 mg PO DAILY [facility] Last Admin: 09/19/19 09:07 Dose: 40 mg Documented by: Propylthiouracil (Ptu -) 50 mg PO TID [facility] Last Admin: 09/19/19 14:32 Dose: 50 mg Documented by: Rifaximin (Xifaxan -) 550 mg PO TID [facility] Last Admin: 09/19/19 14:48 Dose: Not Given Documented by: Sacubitril/Valsartan (Entresto 24 Mg-26 Mg Tablet) 1 tab PO BID [facility] Last Admin: 06/27/20 14:31 Dose: 1 tab Documented by: Sitagliptin Phosphate (Januvia -) 50 mg PO 0700,1630 [facility] Last Admin: 09/19/19 18:02 Dose: 50 mg Documented by: - Objective Vital Signs: Vital Signs Temperature 98.9 F 09/19/19 18:34 Pulse Rate 97 H 09/19/19 18:34 Respiratory Rate 09/19/19 18:34 Blood Pressure 132/91 09/19/19 18:34 O2 Sat by Pulse Oximetry (%) 100 09/19/19 09:00 Cardiovascular: Yes: WNL, Regular Rate and Rhythm Respiratory: Yes: Diminished Gastrointestinal: Yes: WNL, Normal Bowel Sounds, Soft Labs: CBC, BMP 09/18/19 13:00 09/18/19 13:00 Problem List - Problems (1) SOB (shortness of breath) Assessment/Plan: Due to acute on chronic systolic CHF Diuresis as per cardio Code(s): R06.02 - SHORTNESS OF BREATH (2) Suspected 2019 novel coronavirus infection Assessment/Plan: CT scan chest showed ground glass opacities Await covid testing results Code(s): Z20.828 - CONTACT W AND EXPOSURE TO OTH VIRAL COMMUNICABLE DISEASES (3) Elevated troponin Code(s): R79.89 - OTHER SPECIFIED ABNORMAL FINDINGS OF BLOOD CHEMISTRY (4) Chest pain Assessment/Plan: Slightly elevated troponin Cont to trend Cardio consult Code(s): R07.9 - CHEST PAIN, UNSPECIFIED Qualifiers: Chest pain type: unspecified Qualified Code(s): R07.9 - Chest pain, unspecified (5) Abdominal pain Assessment/Plan: ?Due to GERD Code(s): R10.9 - UNSPECIFIED ABDOMINAL PAIN Qualifiers: Abdominal location: right upper quadrant Qualified Code(s): R10.11 - Right upper quadrant pain (6) Diabetes Assessment/Plan: Cont sliding scale w/ coverage Cont levemir Cont Code(s): E11.9 - TYPE 2 DIABETES MELLITUS WITHOUT COMPLICATIONS (7) HTN (hypertension) Code(s): I10 - ESSENTIAL (PRIMARY) HYPERTENSION (8) Hyperthyroidism Code(s): E05.90 - THYROTOXICOSIS, UNSP WITHOUT THYROTOXIC CRISIS OR STORM
[2019-09-19] MEDS: ONDANSETRON 4 MG/2 ML VIAL IVPUSH PRN (20:45)
[2019-09-19] MEDS ORDERED: INSULIN (NOVOLOG) ASPART 100 UNITS/ML 10ML VIAL ONE (21:08)
[2019-09-20] MEDS ORDERED: PT OWN MED DRAWER 7, Y5N ONE ×3 (06:21→20:31)
[2019-09-20] MEDS: INSULIN (LEVEMIR) 100 UNITS/ML UNITS SQ SCH ×2 (06:27→22:17)
[2019-09-20] MEDS: PROPYLTHIOURACIL 50 MG TABLET (UD) PO SCH ×3 (06:29→21:33)
[2019-09-20] MEDS: metFORMIN HCL 500 MG TABLET (FP) PO SCH ×2 (06:29→17:52)
[2019-09-20] MEDS: INSULIN SLIDING SCALE (NOVOLOG) 1 VIAL SQ SCH ×4 (06:29→22:16)
[2019-09-20] MEDS: RIFAXIMIN 550 MG TABLET (UD) PO SCH ×3 (06:29→21:35)
[2019-09-20] MEDS: sitaGLIPtin PHOSPHATE 50 MG TABLET PO SCH ×2 (06:29→17:53)
--- NOTE | 2019-09-20 10:18 | PN ---
Progress Note, Physician Chief Complaint: Pt A&Ox3; sitting up at bedside; tearful ("I don't know what's going on, why they moved me: am I dying?"). Not short of breath. History of Present Illness: Ms. Jules is a 54 yr old black woman w/ a PMH of HTN, HLD, DM, hyperthyroidism (on PTU), GERD, Asthma, overweight (weighed 275 lbs less than a year ago; started losing "a lot of weight fast from, I guess, my DM and thyroid condition") who presents for evaluation of 2 weeks of intermittent SOB. The pt reports intermittent episodes of shortness of breath that last approximately 10 minutes at a time. They are not related to exertion any trigger she can identify. She reports associated R chest wall pain with deep inspiration. She denies fever, cough, abd pain, N/V/D, dysuria, hematuria. Of note, she was provided an albuterol inhaler yesterday that she has been using every couple of hours. She states she has not had anything happen like this before. Denies history of MD or stroke Denies illicit drugs. 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 Reportedly had "routine" stress treadmill test with PMD about a year ago that was unremarkable. - Current Medication List Current Medications: Active Medications Acetaminophen (Tylenol -) 650 mg PO Q6H PRN PRN Reason: PAIN 1-5 Last Admin: 09/19/19 20:45 Dose: 650 mg Documented by: Aspirin (Asa -) 81 mg PO DAILY [facility] Budesonide/Formoterol Fumarate (Symbicort 160/4.5mcg -) 2 puff IH BID [facility] Last Admin: 09/19/19 21:55 Dose: 2 puff Documented by: Furosemide (Lasix Injection -) 40 mg IVPUSH DAILY [facility] Last Admin: 09/19/19 09:07 Dose: 40 mg Documented by: Insulin Aspart (Novolog Vial Sliding Scale -) 1 vial SQ ACHS [facility]; Protocol Last Admin: 09/20/19 06:29 Dose: 2 units Documented by: Insulin Detemir (Levemir Vial) 20 units SQ 0700,2200 [facility] Last Admin: 09/20/19 06:27 Dose: Not Given Documented by: Levofloxacin (Levaquin) 750 mg PO DAILY [facility] Last Admin: 09/19/19 14:31 Dose: 750 mg Documented by: Metformin HCl (Glucophage -) 1,000 mg PO 0700,1630 [facility] Last Admin: 09/20/19 06:29 Dose: 1,000 mg Documented by: Metoprolol Succinate (Toprol Xl -) 25 mg PO DAILY [facility] Last Admin: 09/19/19 09:07 Dose: 25 mg Documented by: Nicotine (Nicoderm Patch -) 14 mg TD DAILY [facility] Last Admin: 09/19/19 14:31 Dose: 14 mg Documented by: Ondansetron HCl (Zofran Injection) 4 mg IVPUSH Q6H PRN PRN Reason: NAUSEA AND/OR VOMITING Last Admin: 09/19/19 20:45 Dose: 4 mg Documented by: Pantoprazole Sodium (Protonix -) 40 mg PO DAILY [facility] Last Admin: 09/19/19 09:07 Dose: 40 mg Documented by: Propylthiouracil (Ptu -) 50 mg PO TID [facility] Last Admin: 09/20/19 06:29 Dose: 50 mg Documented by: Rifaximin (Xifaxan -) 550 mg PO TID [facility] Last Admin: 09/20/19 06:29 Dose: Not Given Documented by: Sacubitril/Valsartan (Entresto 24 Mg-26 Mg Tablet) 1 tab PO BID [facility] Last Admin: 09/19/19 21:52 Dose: 1 tab Documented by: Sitagliptin Phosphate (Januvia -) 50 mg PO 07,1629 [facility] Last Admin: 09/20/19 06:29 Dose: 50 mg Documented by: - Objective Vital Signs: Vital Signs Temperature 98.3 F 09/20/19 09:13 Pulse Rate 80 09/20/19 09:13 Respiratory Rate 20 09/20/19 09:16 Blood Pressure 138/93 09/20/19 09:13 O2 Sat by Pulse Oximetry (%) 100 09/20/19 09:16 Constitutional: Yes: Anxious Eyes: Yes: WNL HENT: Yes: WNL Cardiovascular: Yes: Regular Rate and Rhythm, S1, S2 Respiratory: Yes: Diminished, SOB on Exertion Gastrointestinal: Yes: Soft ...Rectal Exam: Yes: Deferred Genitourinary: No: Anuria Breast(s): Yes: WNL Musculoskeletal: Yes: Muscle Pain (right upper chest (reproduced with palpation); no skin lesions there) Edema: No Peripheral Pulses WNL: Yes Integumentary: Yes: WNL Neurological: Yes: WNL ...Motor Strength: WNL Psychiatric: Yes: Alert, Oriented Labs: CBC, BMP 09/18/19 13:00 09/18/19 13:00 - ....Imaging Chest X-ray: Image Reviewed EKG: Image Reviewed Assessment/Plan HTN, HLD, DM, hyperthyroidism, GERD, Asthma, formerly morbid obesity, admited with systolic CHF exacerbation and low level TNIs. Pt says symptoms started only a few weeks ago, as did the bilateral LE edema. CTA neg for PE ECHO showed CMP EF 15% ? noncompaction sx. Dilated cardiomyopathy. (Denies hx peripartum cardiomyopathy) Plan COVID not detected; presently in isolation for CT "ground glass" lungs. Telemetry ASA Started Entresto On metoprolol ("asthma" hx likely CHF) start spironolactone; hold furosemide. Started nicotine patch DVT PLX Pt seemed reassured when reasons for her being transferred to isolation were explained. Will obtain records from dr. Marino Quezada's office regarding prior cardiac w/u (though pt denies having seen a screen printing stencil preparer, she had a stress test with PMD's office a year ago). Will plan on her seeing heart failure group as outpatient. Will need coronary angiogram, right and left heart cath, cardiac MRI.
[2019-09-20] MEDS: SACUBITRIL/VALSARTAN 24 MG-26 MG TABLET PO SCH ×2 (10:52→21:33)
[2019-09-20] MEDS: ASPIRIN 81 MG CHEWABLE TABLETS PO SCH (10:52)
[2019-09-20] MEDS: FUROSEMIDE 40 MG/4 ML INJECTABLE VIAL IVPUSH SCH (10:54)
[2019-09-20] MEDS: BUDESONIDE/FORMETEROL FUMARATE 160/4.5 mcg INHALER IH SCH ×2 (10:54→21:35)
[2019-09-20] MEDS: PANTOPRAZOLE 40 MG TABLET PO SCH (10:54)
[2019-09-20] MEDS: SPIRONOLACTONE 25 MG TABLET PO SCH (10:55)
--- NOTE | 2019-09-20 14:01 | PN ---
Progress Note, Physician - Current Medication List Current Medications: Active Medications Acetaminophen (Tylenol -) 650 mg PO Q6H PRN PRN Reason: PAIN 1-5 Last Admin: 09/19/19 20:45 Dose: 650 mg Documented by: Aspirin (Asa -) 81 mg PO DAILY [facility] Last Admin: 09/20/19 10:52 Dose: 81 mg Documented by: Budesonide/Formoterol Fumarate (Symbicort 160/4.5mcg -) 2 puff IH BID [facility] Last Admin: 09/20/19 10:54 Dose: 2 puff Documented by: Insulin Aspart (Novolog Vial Sliding Scale -) 1 vial SQ ACHS [facility]; Protocol Last Admin: 09/20/19 12:34 Dose: 2 units Documented by: Insulin Detemir (Levemir Vial) 20 units SQ 0700,2200 [facility] Last Admin: 09/20/19 06:27 Dose: Not Given Documented by: Levofloxacin (Levaquin) 750 mg PO DAILY [facility] Last Admin: 09/19/19 14:31 Dose: 750 mg Documented by: Metformin HCl (Glucophage -) 1,000 mg PO 0700,1630 [facility] Last Admin: 09/20/19 06:29 Dose: 1,000 mg Documented by: Metoprolol Succinate (Toprol Xl -) 25 mg PO DAILY [facility] Last Admin: 09/20/19 10:54 Dose: 25 mg Documented by: Nicotine (Nicoderm Patch -) 14 mg TD DAILY [facility] Last Admin: 09/19/19 14:31 Dose: 14 mg Documented by: Ondansetron HCl (Zofran Injection) 4 mg IVPUSH Q6H PRN PRN Reason: NAUSEA AND/OR VOMITING Last Admin: 09/19/19 20:45 Dose: 4 mg Documented by: Pantoprazole Sodium (Protonix -) 40 mg PO DAILY [facility] Last Admin: 09/20/19 10:54 Dose: 40 mg Documented by: Propylthiouracil (Ptu -) 50 mg PO TID [facility] Last Admin: 09/20/19 06:29 Dose: 50 mg Documented by: Rifaximin (Xifaxan -) 550 mg PO TID [facility] Last Admin: 09/20/19 06:29 Dose: Not Given Documented by: Sacubitril/Valsartan (Entresto 24 Mg-26 Mg Tablet) 1 tab PO BID [facility] Last Admin: 09/20/19 10:52 Dose: 1 tab Documented by: Sitagliptin Phosphate (Januvia -) 50 mg PO 0700,1630 [facility] Last Admin: 09/20/19 06:29 Dose: 50 mg Documented by: Spironolactone (Aldactone -) 25 mg PO DAILY [facility] Last Admin: 09/20/19 10:55 Dose: 25 mg Documented by: - Objective Vital Signs: Vital Signs Temperature 98.3 F 09/20/19 09:13 Pulse Rate 80 09/20/19 09:13 Respiratory Rate 20 09/20/19 09:16 Blood Pressure 138/93 09/20/19 09:13 O2 Sat by Pulse Oximetry (%) 100 09/20/19 09:16 Labs: CBC, BMP 09/18/19 13:00 09/18/19 13:00
[2019-09-20] MEDS: levoFLOXacin 750 MG TABLET PO SCH (16:02)
[2019-09-20] MEDS: NICOTINE 14 MG/24 HOURS TOPICAL PATCH TD SCH (16:03)
[2019-09-20 16:06] VITALS: BMI 28.1
[2019-09-20] MEDS: ONDANSETRON 4 MG/2 ML VIAL IVPUSH PRN (18:16)
--- NOTE | 2019-09-20 21:42 | PN ---
Progress Note, Physician History of Present Illness: No new complaints - Current Medication List Current Medications: Active Medications Acetaminophen (Tylenol -) 650 mg PO Q6H PRN PRN Reason: PAIN 1-5 Last Admin: 09/19/19 20:45 Dose: 650 mg Documented by: Aspirin (Asa -) 81 mg PO DAILY [facility] Last Admin: 09/20/19 10:52 Dose: 81 mg Documented by: Budesonide/Formoterol Fumarate (Symbicort 160/4.5mcg -) 2 puff IH BID [facility] Last Admin: 09/20/19 21:35 Dose: 2 puff Documented by: Insulin Aspart (Novolog Vial Sliding Scale -) 1 vial SQ ACHS [facility]; Protocol Last Admin: 09/20/19 16:12 Dose: Not Given Documented by: Insulin Detemir (Levemir Vial) 20 units SQ 0700,2200 [facility] Last Admin: 09/20/19 06:27 Dose: Not Given Documented by: Levofloxacin (Levaquin) 750 mg PO DAILY [facility] Last Admin: 09/20/19 16:02 Dose: 750 mg Documented by: Metformin HCl (Glucophage -) 1,000 mg PO 0700,1630 [facility] Last Admin: 09/20/19 17:52 Dose: 1,000 mg Documented by: Metoprolol Succinate (Toprol Xl -) 25 mg PO DAILY [facility] Last Admin: 09/20/19 10:54 Dose: 25 mg Documented by: Nicotine (Nicoderm Patch -) 14 mg TD DAILY [facility] Last Admin: 09/20/19 16:03 Dose: 14 mg Documented by: Ondansetron HCl (Zofran Injection) 4 mg IVPUSH Q6H PRN PRN Reason: NAUSEA AND/OR VOMITING Last Admin: 09/20/19 18:16 Dose: 4 mg Documented by: Pantoprazole Sodium (Protonix -) 40 mg PO DAILY [facility] Last Admin: 09/20/19 10:54 Dose: 40 mg Documented by: Propylthiouracil (Ptu -) 50 mg PO TID [facility] Last Admin: 09/20/19 21:33 Dose: 50 mg Documented by: Rifaximin (Xifaxan -) 550 mg PO TID [facility] Last Admin: 09/20/19 21:35 Dose: Not Given Documented by: Sacubitril/Valsartan (Entresto 24 Mg-26 Mg Tablet) 1 tab PO BID [facility] Last Admin: 09/20/19 21:33 Dose: 1 tab Documented by: Sitagliptin Phosphate (Januvia -) 50 mg PO 0700,1630 [facility] Last Admin: 09/20/19 17:53 Dose: 50 mg Documented by: Spironolactone (Aldactone -) 25 mg PO DAILY [facility] Last Admin: 09/20/19 10:55 Dose: 25 mg Documented by: - Objective Vital Signs: Vital Signs Temperature 98.6 F 09/20/19 16:00 Pulse Rate 73 09/20/19 16:00 Respiratory Rate 17 09/20/19 16:00 Blood Pressure 115/86 09/20/19 16:00 O2 Sat by Pulse Oximetry (%) 100 09/20/19 09:16 Neck: Yes: WNL, Supple Cardiovascular: Yes: WNL, Regular Rate and Rhythm Respiratory: Yes: Diminished Gastrointestinal: Yes: WNL, Normal Bowel Sounds, Soft Labs: CBC, BMP 09/18/19 13:00 09/18/19 13:00 Problem List - Problems (1) Chest pain Assessment/Plan: Slightly elevated troponin Cont to trend Cardio consult Code(s): R07.9 - CHEST PAIN, UNSPECIFIED Qualifiers: Chest pain type: unspecified Qualified Code(s): R07.9 - Chest pain, unspecified (2) Elevated troponin Code(s): R79.89 - OTHER SPECIFIED ABNORMAL FINDINGS OF BLOOD CHEMISTRY (3) Abnormal CT lung screening Assessment/Plan: COVID results are negative Code(s): R91.8 - OTHER NONSPECIFIC ABNORMAL FINDING OF LUNG FIELD (4) Abdominal pain Assessment/Plan: ?Due to GERD Code(s): R10.9 - UNSPECIFIED ABDOMINAL PAIN Qualifiers: Abdominal location: right upper quadrant Qualified Code(s): R10.11 - Right upper quadrant pain (5) Diabetes Assessment/Plan: Cont sliding scale w/ coverage Cont levemir Cont Code(s): E11.9 - TYPE 2 DIABETES MELLITUS WITHOUT COMPLICATIONS (6) HTN (hypertension) Code(s): I10 - ESSENTIAL (PRIMARY) HYPERTENSION (7) Hyperthyroidism Code(s): E05.90 - THYROTOXICOSIS, UNSP WITHOUT THYROTOXIC CRISIS OR STORM
[2019-09-21] MEDS: PROPYLTHIOURACIL 50 MG TABLET (UD) PO SCH ×3 (06:33→21:20)
[2019-09-21] MEDS: sitaGLIPtin PHOSPHATE 50 MG TABLET PO SCH ×2 (06:34→16:46)
[2019-09-21] MEDS: metFORMIN HCL 500 MG TABLET (FP) PO SCH ×2 (06:34→16:46)
[2019-09-21] MEDS: RIFAXIMIN 550 MG TABLET (UD) PO SCH ×3 (06:34→21:21)
[2019-09-21] MEDS: INSULIN SLIDING SCALE (NOVOLOG) 1 VIAL SQ SCH ×4 (07:00→22:39)
[2019-09-21] MEDS: INSULIN (LEVEMIR) 100 UNITS/ML UNITS SQ SCH ×2 (07:00→22:39)
--- NOTE | 2019-09-21 09:33 | PN ---
Progress Note, Physician History of Present Illness: The pt is a 54F w/ a PMH of HTN, HLD, DM, hyperthyroidism, GERD, Asthma who presents for evaluation of 2 weeks of intermittent SOB. The pt reports intermittent episodes of shortness of breath that last approximately 10 minutes at a time. They are not related to exertion any trigger she can identify. She reports associated R chest wall pain with deep inspiration. She denies fever, cough, abd pain, N/V/D, dysuria, hematuria. Of note, she was provided an albuterol inhaler yesterday that she has been using every couple of hours. She states she has not had anything happen like this before. Denies history of NH or stroke 09/18/19 01:07 - Current Medication List Current Medications: Active Medications Acetaminophen (Tylenol -) 650 mg PO Q6H PRN PRN Reason: PAIN 1-5 Last Admin: 09/19/19 20:45 Dose: 650 mg Documented by: Aspirin (Asa -) 81 mg PO DAILY [facility] Last Admin: 09/20/19 10:52 Dose: 81 mg Documented by: Budesonide/Formoterol Fumarate (Symbicort 160/4.5mcg -) 2 puff IH BID [facility] Last Admin: 09/20/19 21:35 Dose: 2 puff Documented by: Insulin Aspart (Novolog Vial Sliding Scale -) 1 vial SQ [facility]; Protocol Last Admin: 09/21/19 07:00 Dose: Not Given Documented by: Insulin Detemir (Levemir Vial) 20 units SQ 0700,2200 [facility] Last Admin: 09/21/19 07:00 Dose: 20 units Documented by: Levofloxacin (Levaquin) 750 mg PO DAILY [facility] Last Admin: 09/20/19 16:02 Dose: 750 mg Documented by: Metformin HCl (Glucophage -) 1,000 mg PO 0700,1630 [facility] Last Admin: 09/21/19 06:34 Dose: 1,000 mg Documented by: Metoprolol Succinate (Toprol Xl -) 25 mg PO DAILY [facility] Last Admin: 09/20/19 10:54 Dose: 25 mg Documented by: Nicotine (Nicoderm Patch -) 14 mg TD DAILY [facility] Last Admin: 09/20/19 16:03 Dose: 14 mg Documented by: Ondansetron HCl (Zofran Injection) 4 mg IVPUSH Q6H PRN PRN Reason: NAUSEA AND/OR VOMITING Last Admin: 09/20/19 18:16 Dose: 4 mg Documented by: Pantoprazole Sodium (Protonix -) 40 mg PO DAILY [facility] Last Admin: 09/20/19 10:54 Dose: 40 mg Documented by: Propylthiouracil (Ptu -) 50 mg PO TID [facility] Last Admin: 09/21/19 06:33 Dose: 50 mg Documented by: Rifaximin (Xifaxan -) 550 mg PO TID [facility] Last Admin: 09/21/19 06:34 Dose: Not Given Documented by: Sacubitril/Valsartan (Entresto 24 Mg-26 Mg Tablet) 1 tab PO BID [facility] Last Admin: 09/20/19 21:33 Dose: 1 tab Documented by: Sitagliptin Phosphate (Januvia -) 50 mg PO 0700,1630 [facility] Last Admin: 09/21/19 06:34 Dose: 50 mg Documented by: Spironolactone (Aldactone -) 25 mg PO DAILY [facility] Last Admin: 09/20/19 10:55 Dose: 25 mg Documented by: - Objective Vital Signs: Vital Signs Temperature 97.9 F 09/21/19 06:00 Pulse Rate 76 09/21/19 06:00 Respiratory Rate 21 H 09/21/19 06:00 Blood Pressure 118/82 09/21/19 06:00 O2 Sat by Pulse Oximetry (%) 100 09/21/19 08:26 Eyes: Yes: WNL, Conjunctiva Clear, EOM Intact HENT: Yes: WNL, Atraumatic, Normocephalic Neck: Yes: WNL, Supple, Trachea Midline Cardiovascular: Yes: WNL, Regular Rate and Rhythm Respiratory: Yes: WNL, Regular, CTA Bilaterally Gastrointestinal: Yes: WNL, Normal Bowel Sounds Genitourinary: Yes: WNL Musculoskeletal: Yes: WNL Extremities: Yes: WNL Edema: No Integumentary: Yes: WNL Neurological: Yes: WNL, Alert, Oriented ...Motor Strength: WNL Psychiatric: Yes: WNL Labs: CBC, BMP 09/18/19 13:00 09/18/19 13:00 Problem List - Problems (1) Abdominal pain Code(s): R10.9 - UNSPECIFIED ABDOMINAL PAIN Qualifiers: Abdominal location: right upper quadrant Qualified Code(s): R10.11 - Right upper quadrant pain (2) Chest pain Code(s): R07.9 - CHEST PAIN, UNSPECIFIED Qualifiers: Chest pain type: unspecified Qualified Code(s): R07.9 - Chest pain, unspecified (3) Interstitial edema Code(s): R60.9 - EDEMA, UNSPECIFIED (4) SOB (shortness of breath) Code(s): R06.02 - SHORTNESS OF BREATH (5) Suspected 2019 novel coronavirus infection Code(s): Z20.828 - CONTACT W AND EXPOSURE TO OTH VIRAL COMMUNICABLE DISEASES (6) Asthma Code(s): J45.909 - UNSPECIFIED ASTHMA, UNCOMPLICATED Qualifiers: Asthma severity: mild Asthma persistence: intermittent Asthma complication type: with acute exacerbation Qualified Code(s): J45.21 - Mild intermittent asthma with (acute) exacerbation (7) Right upper quadrant abdominal pain Code(s): R10.11 - RIGHT UPPER QUADRANT PAIN (8) Upper respiratory infection Code(s): J06.9 - ACUTE UPPER RESPIRATORY INFECTION, UNSPECIFIED Qualifiers: URI type: unspecified URI Qualified Code(s): J06.9 - Acute upper respiratory infection, unspecified Assessment/Plan HTN, HLD, DM, hyperthyroidism, GERD, Asthma, formerly morbid obesity, admited with systolic CHF exacerbation and low level TNIs. Pt says symptoms started only a few weeks ago, as did the bilateral LE edema. CTA neg for PE ECHO showed CMP EF 15% ? noncompaction sx. Dilated cardiomyopathy. (Denies hx peripartum cardiomyopathy) Plan COVID not detected; presently in isolation for CT "ground glass" lungs. Telemetry ASA Started Entresto On metoprolol ("asthma" hx likely CHF) start spironolactone; hold furosemide. Started nicotine patch DVT PLX Pt seemed reassured when reasons for her being transferred to isolation were explained. Will obtain records from dr. Marino Quezada's office regarding prior cardiac w/u (though pt denies having seen a lead auditor, she had a stress test with PMD's office a year ago). Will plan on her seeing heart failure group as outpatient. Will need coronary a ngiogram, right and left heart cath, cardiac MRI.
[2019-09-21] MEDS: ASPIRIN 81 MG CHEWABLE TABLETS PO SCH (10:09)
[2019-09-21] MEDS: NICOTINE 14 MG/24 HOURS TOPICAL PATCH TD SCH (10:09)
[2019-09-21] MEDS: SACUBITRIL/VALSARTAN 24 MG-26 MG TABLET PO SCH ×2 (10:09→21:20)
[2019-09-21] MEDS: levoFLOXacin 750 MG TABLET PO SCH (10:09)
[2019-09-21] MEDS: PANTOPRAZOLE 40 MG TABLET PO SCH (10:09)
[2019-09-21] MEDS: BUDESONIDE/FORMETEROL FUMARATE 160/4.5 mcg INHALER IH SCH ×2 (10:09→21:20)
[2019-09-21] MEDS: SPIRONOLACTONE 25 MG TABLET PO SCH (10:09)
--- NOTE | 2019-09-21 12:15 | PN ---
Progress Note, Physician History of Present Illness: stable comfortable awaiting covid testing - Current Medication List Current Medications: Active Medications Acetaminophen (Tylenol -) 650 mg PO Q6H PRN PRN Reason: PAIN 1-5 Last Admin: 09/19/19 20:45 Dose: 650 mg Documented by: Aspirin (Asa -) 81 mg PO DAILY [facility] Last Admin: 09/21/19 10:09 Dose: 81 mg Documented by: Budesonide/Formoterol Fumarate (Symbicort 160/4.5mcg -) 2 puff IH BID [facility] Last Admin: 09/21/19 10:09 Dose: 2 puff Documented by: Insulin Aspart (Novolog Vial Sliding Scale -) 1 vial SQ ACHS [facility]; Protocol Last Admin: 09/21/19 11:32 Dose: 6 units Documented by: Insulin Detemir (Levemir Vial) 20 units SQ 0700,2200 [facility] Last Admin: 09/21/19 07:00 Dose: 20 units Documented by: Levofloxacin (Levaquin) 750 mg PO DAILY [facility] Last Admin: 09/21/19 10:09 Dose: 750 mg Documented by: Metformin HCl (Glucophage -) 1,000 mg PO 0700,1630 [facility] Last Admin: 09/21/19 06:34 Dose: 1,000 mg Documented by: Metoprolol Succinate (Toprol Xl -) 25 mg PO DAILY [facility] Last Admin: 09/21/19 10:09 Dose: 25 mg Documented by: Nicotine (Nicoderm Patch -) 14 mg TD DAILY [facility] Last Admin: 09/21/19 10:09 Dose: 14 mg Documented by: Ondansetron HCl (Zofran Injection) 4 mg IVPUSH Q6H PRN PRN Reason: NAUSEA AND/OR VOMITING Last Admin: 09/20/19 18:16 Dose: 4 mg Documented by: Pantoprazole Sodium (Protonix -) 40 mg PO DAILY [facility] Last Admin: 09/21/19 10:09 Dose: 40 mg Documented by: Propylthiouracil (Ptu -) 50 mg PO TID [facility] Last Admin: 09/21/19 06:33 Dose: 50 mg Documented by: Rifaximin (Xifaxan -) 550 mg PO TID [facility] Last Admin: 09/21/19 06:34 Dose: Not Given Documented by: Sacubitril/Valsartan (Entresto 24 Mg-26 Mg Tablet) 1 tab PO BID [facility] Last Admin: 09/21/19 10:09 Dose: 1 tab Documented by: Sitagliptin Phosphate (Januvia -) 50 mg PO 0700,1630 [facility] Last Admin: 09/21/19 06:34 Dose: 50 mg Documented by: Spironolactone (Aldactone -) 25 mg PO DAILY [facility] Last Admin: 09/21/19 10:09 Dose: 25 mg Documented by: - Objective Vital Signs: Vital Signs Temperature 97.9 F 09/21/19 06:00 Pulse Rate 80 09/21/19 11:43 Respiratory Rate 16 09/21/19 11:43 Blood Pressure 125/78 09/21/19 11:43 O2 Sat by Pulse Oximetry (%) 100 09/21/19 08:26 Constitutional: Yes: No Distress, Calm Cardiovascular: Yes: S1, S2 Respiratory: Yes: Regular, CTA Bilaterally Gastrointestinal: Yes: Normal Bowel Sounds, Soft Musculoskeletal: Yes: WNL Extremities: Yes: WNL Neurological: Yes: Alert, Oriented Psychiatric: Yes: Alert, Oriented Labs: CBC, BMP 09/18/19 13:00 09/18/19 13:00 Assessment/Plan Problem List - Problems (1) Suspected 2019 novel coronavirus infection Code(s): Z20.828 - CONTACT W AND EXPOSURE TO OTH VIRAL COMMUNICABLE DISEASES (2) Abdominal pain Code(s): R10.9 - UNSPECIFIED ABDOMINAL PAIN Qualifiers: Abdominal location: right upper quadrant Qualified Code(s): R10.11 - Right upper quadrant pain (3) Chest pain Code(s): R07.9 - CHEST PAIN, UNSPECIFIED Qualifiers: Chest pain type: unspecified Qualified Code(s): R07.9 - Chest pain, unspecified (4) SOB (shortness of breath) Code(s): R06.02 - SHORTNESS OF BREATH (5) Asthma Code(s): J45.909 - UNSPECIFIED ASTHMA, UNCOMPLICATED Qualifiers: Asthma severity: mild Asthma persistence: intermittent Asthma complication type: with acute exacerbation Qualified Code(s): J45.21 - Mild intermittent asthma with (acute) exacerbation (6) Diabetes Code(s): E11.9 - TYPE 2 DIABETES MELLITUS WITHOUT COMPLICATIONS (7) Hyperthyroidism Code(s): E05.90 - THYROTOXICOSIS, UNSP WITHOUT THYROTOXIC CRISIS OR STORM (8) HTN (hypertension) Code(s): I10 - ESSENTIAL (PRIMARY) HYPERTENSION plan continue current mgmt awaiting for results
[2019-09-21] MEDS ORDERED: PT OWN MED DRAWER 7, Y5N ONE (14:01)
--- NOTE | 2019-09-21 14:32 | PN ---
Progress Note (short form) - Note Progress Note: Feels overall better. NAD on RA. No CP or SOB. No cough. Intake & Output 09/18/19 09/19/19 09/20/19 09/21/19 23:59 23:59 23:59 23:59 Intake Total 250 390 750 150 Balance 250 390 750 150 Weight 169 lb 12.095 oz 169 lb Last Vital Signs Temp Pulse Resp BP Pulse Ox 97.9 F 80 16 125/78 100 09/21/19 06:00 09/21/19 11:43 09/21/19 11:43 09/21/19 11:43 09/21/19 08:26 Active Medications Acetaminophen (Tylenol -) 650 mg PO Q6H PRN PRN Reason: PAIN 1-5 Last Admin: 09/19/19 20:45 Dose: 650 mg Documented by: Aspirin (Asa -) 81 mg PO DAILY [facility] Last Admin: 09/21/19 10:09 Dose: 81 mg Documented by: Budesonide/Formoterol Fumarate (Symbicort 160/4.5mcg -) 2 puff IH BID [facility] Last Admin: 09/21/19 10:09 Dose: 2 puff Documented by: Insulin Aspart (Novolog Vial Sliding Scale -) 1 vial SQ ACHS [facility]; Protocol Last Admin: 09/21/19 11:32 Dose: 6 units Documented by: Insulin Detemir (Levemir Vial) 20 units SQ 0700,2200 [facility] Last Admin: 09/21/19 07:00 Dose: 20 units Documented by: Levofloxacin (Levaquin) 750 mg PO DAILY [facility] Last Admin: 09/21/19 10:09 Dose: 750 mg Documented by: Metformin HCl (Glucophage -) 1,000 mg PO 0700,1630 [facility] Last Admin: 09/21/19 06:34 Dose: 1,000 mg Documented by: Metoprolol Succinate (Toprol Xl -) 25 mg PO DAILY [facility] Last Admin: 09/21/19 10:09 Dose: 25 mg Documented by: Nicotine (Nicoderm Patch -) 14 mg TD DAILY [facility] Last Admin: 09/21/19 10:09 Dose: 14 mg Documented by: Ondansetron HCl (Zofran Injection) 4 mg IVPUSH Q6H PRN PRN Reason: NAUSEA AND/OR VOMITING Last Admin: 09/20/19 18:16 Dose: 4 mg Documented by: Pantoprazole Sodium (Protonix -) 40 mg PO DAILY [facility] Last Admin: 09/21/19 10:09 Dose: 40 mg Documented by: Propylthiouracil (Ptu -) 50 mg PO TID [facility] Last Admin: 09/21/19 14:04 Dose: 50 mg Documented by: Rifaximin (Xifaxan -) 550 mg PO TID [facility] Last Admin: 09/21/19 13:41 Dose: Not Given Documented by: Sacubitril/Valsartan (Entresto 24 Mg-26 Mg Tablet) 1 tab PO BID [facility] Last Admin: 09/21/19 10:09 Dose: 1 tab Documented by: Sitagliptin Phosphate (Januvia -) 50 mg PO 0700,1630 [facility] Last Admin: 09/21/19 06:34 Dose: 50 mg Documented by: Spironolactone (Aldactone -) 25 mg PO DAILY [facility] Last Admin: 09/21/19 10:09 Dose: 25 mg Documented by: Constitutional: Yes: NAD Eyes: Yes: Conjunctiva Clear, EOM Intact HENT: Yes: Atraumatic, Normocephalic Neck: Yes: Supple, Trachea Midline Cardiovascular: Yes: Regular Rate and Rhythm Respiratory: Yes: Diminished at the bases. No: Accessory Muscle Use, Rales, Stridor, Tachypnea, Wheezes ...Inspection: Yes: WNL ...Clubbing: No Gastrointestinal: Yes: Normal Bowel Sounds, Soft, Abdomen, Obese Renal/: Yes: WNL Musculoskeletal: Yes: WNL Extremities: Yes: WNL Edema: No Peripheral Pulses WNL: Yes Integumentary: Yes: WNL Neurological: Yes: WNL, Alert, Oriented ...Motor Strength: WNL Psychiatric: Yes: WNL, Alert, Oriented Labs: Laboratory Results - last 24 hr 09/20/19 09/20/19 09/21/19 16:12 22:06 06:50 POC Glucometer 131 167 174 09/21/19 11:13 POC Glucometer 272 Imaging - Results Chest X-ray: Report Reviewed, Image Reviewed Cat Scan: Report Reviewed, Image Reviewed Problem List - Problems (1) Interstitial edema Code(s): R60.9 - EDEMA, UNSPECIFIED (2) Abdominal pain Code(s): R10.9 - UNSPECIFIED ABDOMINAL PAIN Qualifiers: Abdominal location: right upper quadrant Qualified Code(s): R10.11 - Right upper quadrant pain (3) SOB (shortness of breath) Code(s): R06.02 - SHORTNESS OF BREATH (4) Upper respiratory infection Code(s): J06.9 - ACUTE UPPER RESPIRATORY INFECTION, UNSPECIFIED Qualifiers: URI type: unspecified URI Qualified Code(s): J06.9 - Acute upper respiratory infection, unspecified Assessment/Plan Clinical and radiographic suspicion of COVID19 infection Do not suspect Asthma R/O COPD Follow repeat COVID19 serology Lasix as needed Isolation VTE prophylaxis No smoking Will need outpatient PFTs once stable Symbicort BID Dr Hawk Problem List - Problems (1) Interstitial edema Code(s): R60.9 - EDEMA, UNSPECIFIED (2) Abdominal pain Code(s): R10.9 - UNSPECIFIED ABDOMINAL PAIN Qualifiers: Abdominal location: right upper quadrant Qualified Code(s): R10.11 - Right upper quadrant pain (3) SOB (shortness of breath) Code(s): R06.02 - SHORTNESS OF BREATH (4) Upper respiratory infection Code(s): J06.9 - ACUTE UPPER RESPIRATORY INFECTION, UNSPECIFIED Qualifiers: URI type: unspecified URI Qualified Code(s): J06.9 - Acute upper respiratory infection, unspecified
[2019-09-21] MEDS: ONDANSETRON 4 MG/2 ML VIAL IVPUSH PRN (19:30)
--- NOTE | 2019-09-21 21:33 | PN ---
Progress Note, Physician History of Present Illness: No new complaints - Current Medication List Current Medications: Active Medications Acetaminophen (Tylenol -) 650 mg PO Q6H PRN PRN Reason: PAIN 1-5 Last Admin: 09/19/19 20:45 Dose: 650 mg Documented by: Aspirin (Asa -) 81 mg PO DAILY [facility] Last Admin: 09/21/19 10:09 Dose: 81 mg Documented by: Budesonide/Formoterol Fumarate (Symbicort 160/4.5mcg -) 2 puff IH BID [facility] Last Admin: 09/21/19 21:20 Dose: 2 puff Documented by: Insulin Aspart (Novolog Vial Sliding Scale -) 1 vial SQ ACHS [facility]; Protocol Last Admin: 09/21/19 16:41 Dose: Not Given Documented by: Insulin Detemir (Levemir Vial) 20 units SQ 0700,2200 [facility] Last Admin: 09/21/19 07:00 Dose: 20 units Documented by: Levofloxacin (Levaquin) 750 mg PO DAILY [facility] Last Admin: 09/21/19 10:09 Dose: 750 mg Documented by: Metformin HCl (Glucophage -) 1,000 mg PO 0700,1630 [facility] Last Admin: 09/21/19 16:46 Dose: 1,000 mg Documented by: Metoprolol Succinate (Toprol Xl -) 25 mg PO DAILY [facility] Last Admin: 09/21/19 10:09 Dose: 25 mg Documented by: Nicotine (Nicoderm Patch -) 14 mg TD DAILY [facility] Last Admin: 09/21/19 10:09 Dose: 14 mg Documented by: Ondansetron HCl (Zofran Injection) 4 mg IVPUSH Q6H PRN PRN Reason: NAUSEA AND/OR VOMITING Last Admin: 09/21/19 19:30 Dose: 4 mg Documented by: Pantoprazole Sodium (Protonix -) 40 mg PO DAILY [facility] Last Admin: 09/21/19 10:09 Dose: 40 mg Documented by: Propylthiouracil (Ptu -) 50 mg PO TID [facility] Last Admin: 09/21/19 21:20 Dose: 50 mg Documented by: Rifaximin (Xifaxan -) 550 mg PO TID [facility] Last Admin: 09/21/19 21:21 Dose: Not Given Documented by: Sacubitril/Valsartan (Entresto 24 Mg-26 Mg Tablet) 1 tab PO BID [facility] Last Admin: 09/21/19 21:20 Dose: 1 tab Documented by: Sitagliptin Phosphate (Januvia -) 50 mg PO 0700,1630 [facility] Last Admin: 09/21/19 16:46 Dose: 50 mg Documented by: Spironolactone (Aldactone -) 25 mg PO DAILY [facility] Last Admin: 09/21/19 10:09 Dose: 25 mg Documented by: - Objective Vital Signs: Vital Signs Temperature 98.4 F 09/21/19 14:33 Pulse Rate 82 09/21/19 18:00 Respiratory Rate 16 09/21/19 18:00 Blood Pressure 125/82 09/21/19 18:00 O2 Sat by Pulse Oximetry (%) 100 09/21/19 08:26 Neck: Yes: WNL, Supple Cardiovascular: Yes: WNL, Regular Rate and Rhythm Respiratory: Yes: Diminished Gastrointestinal: Yes: WNL, Normal Bowel Sounds, Soft Labs: CBC, BMP 09/18/19 13:00 09/18/19 13:00 Problem List - Problems (1) Acute on chronic systolic (congestive) heart failure Assessment/Plan: Cont entresto/spironolactone Code(s): I50.23 - ACUTE ON CHRONIC SYSTOLIC (CONGESTIVE) HEART FAILURE (2) Abnormal CT lung screening Assessment/Plan: Ground glass opacities on ct scan chest COVID result is negative however repeat COVID sent wc is pending Cont PO levaquin Code(s): R91.8 - OTHER NONSPECIFIC ABNORMAL FINDING OF LUNG FIELD (3) Chest pain Assessment/Plan: Resolved Slightly elevated troponin Code(s): R07.9 - CHEST PAIN, UNSPECIFIED Qualifiers: Chest pain type: unspecified Qualified Code(s): R07.9 - Chest pain, unspec ified (4) Elevated troponin Code(s): R79.89 - OTHER SPECIFIED ABNORMAL FINDINGS OF BLOOD CHEMISTRY (5) Abdominal pain Assessment/Plan: ?Due to GERD Code(s): R10.9 - UNSPECIFIED ABDOMINAL PAIN Qualifiers: Abdominal location: right upper quadrant Qualified Code(s): R10.11 - Right upper quadrant pain (6) Diabetes Assessment/Plan: Cont sliding scale w/ coverage Cont levemir Cont Code(s): E11.9 - TYPE 2 DIABETES MELLITUS WITHOUT COMPLICATIONS (7) HTN (hypertension) Assessment/Plan: Cont metoprolol Code(s): I10 - ESSENTIAL (PRIMARY) HYPERTENSION (8) Hyperthyroidism Code(s): E05.90 - THYROTOXICOSIS, UNSP WITHOUT THYROTOXIC CRISIS OR STORM
[2019-09-22] MEDS: metFORMIN HCL 500 MG TABLET (FP) PO SCH ×2 (07:00→16:07)
[2019-09-22] MEDS: PROPYLTHIOURACIL 50 MG TABLET (UD) PO SCH ×3 (07:00→21:24)
[2019-09-22] MEDS: RIFAXIMIN 550 MG TABLET (UD) PO SCH ×3 (07:00→21:22)
[2019-09-22] MEDS: INSULIN SLIDING SCALE (NOVOLOG) 1 VIAL SQ SCH ×4 (07:01→21:21)
[2019-09-22] MEDS: sitaGLIPtin PHOSPHATE 50 MG TABLET PO SCH ×2 (07:01→16:07)
[2019-09-22] MEDS: INSULIN (LEVEMIR) 100 UNITS/ML UNITS SQ SCH ×2 (07:01→21:21)
[2019-09-22] MEDS ORDERED: PT OWN MED DRAWER 7, Y5N ONE ×2 (09:31→20:59)
[2019-09-22] MEDS: ASPIRIN 81 MG CHEWABLE TABLETS PO SCH (10:10)
[2019-09-22] MEDS: SPIRONOLACTONE 25 MG TABLET PO SCH (10:12)
[2019-09-22] MEDS: levoFLOXacin 750 MG TABLET PO SCH (10:12)
[2019-09-22] MEDS: NICOTINE 14 MG/24 HOURS TOPICAL PATCH TD SCH (10:12)
[2019-09-22] MEDS: SACUBITRIL/VALSARTAN 24 MG-26 MG TABLET PO SCH ×2 (10:12→21:24)
[2019-09-22] MEDS: PANTOPRAZOLE 40 MG TABLET PO SCH (10:12)
[2019-09-22] MEDS: BUDESONIDE/FORMETEROL FUMARATE 160/4.5 mcg INHALER IH SCH ×2 (10:13→21:25)
--- NOTE | 2019-09-22 12:17 | PN ---
Progress Note (short form) - Note Progress Note: Feels overall better. NAD on RA. No CP or SOB. No cough. Intake & Output 09/19/19 09/20/19 09/21/19 09/22/19 23:59 23:59 23:59 23:59 Intake Total 390 750 950 200 Balance 390 750 950 200 Weight 169 lb Last Vital Signs Temp Pulse Resp BP Pulse Ox 98.0 F 78 23 H 115/89 100 09/22/19 10:00 09/22/19 10:00 09/22/19 10:00 09/22/19 10:00 09/22/19 09:00 Active Medications Acetaminophen (Tylenol -) 650 mg PO Q6H PRN PRN Reason: PAIN 1-5 Last Admin: 09/19/19 20:45 Dose: 650 mg Documented by: Aspirin (Asa -) 81 mg PO DAILY [facility] Last Admin: 09/22/19 10:10 Dose: 81 mg Documented by: Budesonide/Formoterol Fumarate (Symbicort 160/4.5mcg -) 2 puff IH BID [facility] Last Admin: 09/22/19 10:13 Dose: 2 puff Documented by: Insulin Aspart (Novolog Vial Sliding Scale -) 1 vial SQ ACHS [facility]; Protocol Last Admin: 09/22/19 11:04 Dose: 2 units Documented by: Insulin Detemir (Levemir Vial) 20 units SQ 0700,2200 [facility] Last Admin: 09/22/19 07:01 Dose: Not Given Documented by: Levofloxacin (Levaquin) 750 mg PO DAILY [facility] Last Admin: 09/22/19 10:12 Dose: 750 mg Documented by: Metformin HCl (Glucophage -) 1,000 mg PO 0700,1630 [facility] Last Admin: 09/22/19 07:00 Dose: 1,000 mg Documented by: Metoprolol Succinate (Toprol Xl -) 25 mg PO DAILY [facility] Last Admin: 09/22/19 10:10 Dose: 25 mg Documented by: Nicotine (Nicoderm Patch -) 14 mg TD DAILY [facility] Last Admin: 09/22/19 10:12 Dose: 14 mg Documented by: Ondansetron HCl (Zofran Injection) 4 mg IVPUSH Q6H PRN PRN Reason: NAUSEA AND/OR VOMITING Last Admin: 09/21/19 19:30 Dose: 4 mg Documented by: Pantoprazole Sodium (Protonix -) 40 mg PO DAILY [facility] Last Admin: 09/22/19 10:12 Dose: 40 mg Documented by: Propylthiouracil (Ptu -) 50 mg PO TID [facility] Last Admin: 09/22/19 07:00 Dose: 50 mg Documented by: Rifaximin (Xifaxan -) 550 mg PO TID [facility] Last Admin: 09/22/19 07:00 Dose: Not Given Documented by: Sacubitril/Valsartan (Entresto 24 Mg-26 Mg Tablet) 1 tab PO BID [facility] Last Admin: 09/22/19 10:12 Dose: 1 tab Documented by: Sitagliptin Phosphate (Januvia -) 50 mg PO 0700,1630 [facility] Last Admin: 09/22/19 07:01 Dose: 50 mg Documented by: Spironolactone (Aldactone -) 25 mg PO DAILY [facility] Last Admin: 09/22/19 10:12 Dose: 25 mg Documented by: Constitutional: Yes: NAD Eyes: Yes: Conjunctiva Clear, EOM Intact HENT: Yes: Atraumatic, Normocephalic Neck: Yes: Supple, Trachea Midline Cardiovascular: Yes: Regular Rate and Rhythm Respiratory: Yes: Diminished at the bases. No: Accessory Muscle Use, Rales, Stridor, Tachypnea, Wheezes ...Inspection: Yes: WNL ...Clubbing: No Gastrointestinal: Yes: Normal Bowel Sounds, Soft, Abdomen, Obese Renal/: Yes: WNL Musculoskeletal: Yes: WNL Extremities: Yes: WNL Edema: No Peripheral Pulses WNL: Yes Integumentary: Yes: WNL Neurological: Yes: WNL, Alert, Oriented ...Motor Strength: WNL Psychiatric: Yes: WNL, Alert, Oriented Labs: Laboratory Results - last 24 hr 09/21/19 09/21/19 09/22/19 16:08 22:13 06:50 POC Glucometer 89 103 106 09/22/19 11:02 POC Glucometer 167 Imaging - Results Chest X-ray: Report Reviewed, Image Reviewed Cat Scan: Report Reviewed, Image Reviewed Problem List - Problems (1) Interstitial edema Code(s): R60.9 - EDEMA, UNSPECIFIED (2) Abdominal pain Code(s): R10.9 - UNSPECIFIED ABDOMINAL PAIN Qualifiers: Abdominal location: right upper quadrant Qualified Code(s): R10.11 - Right upper quadrant pain (3) SOB (shortness of breath) Code(s): R06.02 - SHORTNESS OF BREATH (4) Upper respiratory infection Code(s): J06.9 - ACUTE UPPER RESPIRATORY INFECTION, UNSPECIFIED Qualifiers: URI type: unspecified URI Qualified Code(s): J06.9 - Acute upper res piratory infection, unspecified Assessment/Plan Resolving Pulmonary vascular congestion Clinical and radiographic suspicion of COVID19 infection Do not suspect Asthma R/O COPD Follow repeat COVID19 serology Lasix as needed Isolation VTE prophylaxis No smoking Will need outpatient PFTs once stable Symbicort BID Dr Hawk Problem List - Problems (1) Interstitial edema Code(s): R60.9 - EDEMA, UNSPECIFIED (2) Abdominal pain Code(s): R10.9 - UNSPECIFIED ABDOMINAL PAIN Qualifiers: Abdominal location: right upper quadrant Qualified Code(s): R10.11 - Right upper quadrant pain (3) SOB (shortness of breath) Code(s): R06.02 - SHORTNESS OF BREATH (4) Upper respiratory infection Code(s): J06.9 - ACUTE UPPER RESPIRATORY INFECTION, UNSPECIFIED Qualifiers: URI type: unspecified URI Qualified Code(s): J06.9 - Acute upper respiratory infection, unspecified
--- NOTE | 2019-09-22 13:13 | PN ---
Progress Note, Physician Chief Complaint: Pt A&Ox3; no SOB; c/o intermittent right anterior chest wall pain (reproduced with palpation or deep breath; no skin lesions in the area). History of Present Illness: Ms. Jules is a 54 yr old black woman w/ a PMH of HTN, HLD, DM, hyperthyroidism (on PTU), GERD, "Asthma" (likely CHF: pt did not start a bronchodilator until a few years ago, when she "couldn't breathe"; no hx of "asthma" as a child or young adult), overweight (weighed 275 lbs less than a year ago; started losing "a lot of weight fast from, I guess, my DM and thyroid condition") who presents for evaluation of 2 weeks of intermittent SOB. The pt reports intermittent episodes of shortness of breath that last approximately 10 minutes at a time. They are not related to exertion any trigger she can identify. She reports associated R chest wall pain with deep inspiration. She denies fever, cough, abd pain, N/V/D, dysuria, hematuria. Of note, she was provided an albuterol inhaler yesterday that she has been using every couple of hours. She states she has not had anything happen like this before. Denies history of PA or stroke Denies illicit drugs. 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 Reportedly had "routine" stress treadmill test with PMD about a year ago that was unremarkable. - Current Medication List Current Medications: Active Medications Acetaminophen (Tylenol -) 650 mg PO Q6H PRN PRN Reason: PAIN 1-5 Last Admin: 09/19/19 20:45 Dose: 650 mg Documented by: Aspirin (Asa -) 81 mg PO DAILY [facility] Last Admin: 09/22/19 10:10 Dose: 81 mg Documented by: Budesonide/Formoterol Fumarate (Symbicort 160/4.5mcg -) 2 puff IH BID [facility] Last Admin: 09/22/19 10:13 Dose: 2 puff Documented by: Insulin Aspart (Novolog Vial Sliding Scale -) 1 vial SQ ACHS [facility]; Protocol Last Admin: 09/22/19 11:04 Dose: 2 units Documented by: Insulin Detemir (Levemir Vial) 20 units SQ 0700,2200 [facility] Last Admin: 09/22/19 07:01 Dose: Not Given Documented by: Levofloxacin (Levaquin) 750 mg PO DAILY [facility] Last Admin: 09/22/19 10:12 Dose: 750 mg Documented by: Metformin HCl (Glucophage -) 1,000 mg PO 07,1629 [facility] Last Admin: 09/22/19 07:00 Dose: 1,000 mg Documented by: Metoprolol Succinate (Toprol Xl -) 25 mg PO DAILY [facility] Last Admin: 09/22/19 10:10 Dose: 25 mg Documented by: Nicotine (Nicoderm Patch -) 14 mg TD DAILY [facility] Last Admin: 09/22/19 10:12 Dose: 14 mg Documented by: Ondansetron HCl (Zofran Injection) 4 mg IVPUSH Q6H PRN PRN Reason: NAUSEA AND/OR VOMITING Last Admin: 09/21/19 19:30 Dose: 4 mg Documented by: Pantoprazole Sodium (Protonix -) 40 mg PO DAILY [facility] Last Admin: 09/22/19 10:12 Dose: 40 mg Documented by: Propylthiouracil (Ptu -) 50 mg PO TID [facility] Last Admin: 09/22/19 07:00 Dose: 50 mg Documented by: Rifaximin (Xifaxan -) 550 mg PO TID [facility] Last Admin: 09/22/19 07:00 Dose: Not Given Documented by: Sacubitril/Valsartan (Entresto 24 Mg-26 Mg Tablet) 1 tab PO BID [facility] Last Admin: 09/22/19 10:12 Dose: 1 tab Documented by: Sitagliptin Phosphate (Januvia -) 50 mg PO 699,1629 [facility] Last Admin: 09/22/19 07:01 Dose: 50 mg Documented by: Spironolactone (Aldactone -) 25 mg PO DAILY [facility] Last Admin: 09/22/19 10:12 Dose: 25 mg Documented by: - Objective Vital Signs: Vital Signs Temperature 98.0 F 09/22/19 10:00 Pulse Rate 79 09/22/19 12:27 Respiratory Rate 21 H 09/22/19 12:27 Blood Pressure 122/72 09/22/19 12:27 O2 Sat by Pulse Oximetry (%) 100 09/22/19 09:00 Labs: CBC, BMP 09/18/19 13:00 09/18/19 13:00 Assessment/Plan HTN, HLD, DM, hyperthyroidism, GERD, formerly morbid obesity, admitted with systolic CHF exacerbation and low level TNIs. Pt says symptoms started only a few weeks ago (but later admits she was started on a bronchodilator pump a few years ago because she began having trouble breathing), as did the bilateral LE edema. CTA neg for PE ECHO showed CMP EF 15% ? noncompaction sx. Dilated cardiomyopathy. (Denies hx peripartum cardiomyopathy) Plan COVID not detected; presently in isolation for CT "ground glass" lungs. Telemetry ASA Started Entresto On metoprolol ("asthma" hx likely CHF) started spironolactone. Started nicotine patch DVT PLX Pt seemed reassured when reasons for her being transferred to isolation were explained. Communicated with pt's caridologist, Dr. Evans: pt had mildlyr reduced LVEF on ECHO 10/2018 (she had been having nagging pain under left breast; + edema of feet; on metoprolol, valsartan/HCTZ, insulin, PTU, Ibuprofen, singulair, canagufloxin; mother with CAD); on 09/17/19, repeat ECHO there showed severely reduced LVEF and reduced RVEF, mild MR; no pericardial effusion. Will plan on pt seeing Dr. Evans and heart failure group as outpatient. Will need coronary angiogram, right and left heart cath, cardiac MRI.
--- NOTE | 2019-09-22 15:16 | PN ---
Progress Note, Physician History of Present Illness: stable no new issues - Current Medication List Current Medications: Active Medications Acetaminophen (Tylenol -) 650 mg PO Q6H PRN PRN Reason: PAIN 1-5 Last Admin: 09/19/19 20:45 Dose: 650 mg Documented by: Aspirin (Asa -) 81 mg PO DAILY [facility] Last Admin: 09/22/19 10:10 Dose: 81 mg Documented by: Budesonide/Formoterol Fumarate (Symbicort 160/4.5mcg -) 2 puff IH BID [facility] Last Admin: 09/22/19 10:13 Dose: 2 puff Documented by: Insulin Aspart (Novolog Vial Sliding Scale -) 1 vial SQ ACHS [facility]; Protocol Last Admin: 09/22/19 11:04 Dose: 2 units Documented by: Insulin Detemir (Levemir Vial) 20 units SQ 0700,2200 [facility] Last Admin: 09/22/19 07:01 Dose: Not Given Documented by: Levofloxacin (Levaquin) 750 mg PO DAILY [facility] Last Admin: 09/22/19 10:12 Dose: 750 mg Documented by: Metformin HCl (Glucophage -) 1,000 mg PO 0700,1630 [facility] Last Admin: 09/22/19 07:00 Dose: 1,000 mg Documented by: Metoprolol Succinate (Toprol Xl -) 25 mg PO DAILY [facility] Last Admin: 09/22/19 10:10 Dose: 25 mg Documented by: Nicotine (Nicoderm Patch -) 14 mg TD DAILY [facility] Last Admin: 09/22/19 10:12 Dose: 14 mg Documented by: Ondansetron HCl (Zofran Injection) 4 mg IVPUSH Q6H PRN PRN Reason: NAUSEA AND/OR VOMITING Last Admin: 09/21/19 19:30 Dose: 4 mg Documented by: Pantoprazole Sodium (Protonix -) 40 mg PO DAILY [facility] Last Admin: 09/22/19 10:12 Dose: 40 mg Documented by: Propylthiouracil (Ptu -) 50 mg PO TID [facility] Last Admin: 09/22/19 13:08 Dose: 50 mg Documented by: Rifaximin (Xifaxan -) 550 mg PO TID [facility] Last Admin: 09/22/19 13:08 Dose: Not Given Documented by: Sacubitril/Valsartan (Entresto 24 Mg-26 Mg Tablet) 1 tab PO BID [facility] Last Admin: 09/22/19 10:12 Dose: 1 tab Documented by: Sitagliptin Phosphate (Januvia -) 50 mg PO 0700,1630 [facility] Last Admin: 09/22/19 07:01 Dose: 50 mg Documented by: Spironolactone (Aldactone -) 25 mg PO DAILY [facility] Last Admin: 09/22/19 10:12 Dose: 25 mg Documented by: - Objective Vital Signs: Vital Signs Temperature 96.6 F L 09/22/19 14:29 Pulse Rate 81 09/22/19 14:29 Respiratory Rate 21 H 09/22/19 12:27 Blood Pressure 122/89 09/22/19 14:29 O2 Sat by Pulse Oximetry (%) 100 09/22/19 09:00 Constitutional: Yes: No Distress, Calm Cardiovascular: Yes: S1, S2 Respiratory: Yes: Regular, CTA Bilaterally Musculoskeletal: Yes: WNL Extremities: Yes: WNL Neurological: Yes: Alert, Oriented Psychiatric: Yes: Alert, Oriented Labs: CBC, BMP 09/18/19 13:00 09/18/19 13:00 Assessment/Plan Problem List - Problems (1) Suspected 2019 novel coronavirus infection Code(s): Z20.828 - CONTACT W AND EXPOSURE TO OTH VIRAL COMMUNICABLE DISEASES (2) Abdominal pain Code(s): R10.9 - UNSPECIFIED ABDOMINAL PAIN Qualifiers: Abdominal location: right upper quadrant Qualified Code(s): R10.11 - Right upper quadrant pain (3) Chest pain Code(s): R07.9 - CHEST PAIN, UNSPECIFIED Qualifiers: Chest pain type: unspecified Qualified Code(s): R07.9 - Chest pain, un specified (4) SOB (shortness of breath) Code(s): R06.02 - SHORTNESS OF BREATH (5) Asthma Code(s): J45.909 - UNSPECIFIED ASTHMA, UNCOMPLICATED Qualifiers: Asthma severity: mild Asthma persistence: intermittent Asthma complication type: with acute exacerbation Qualified Code(s): J45.21 - Mild intermittent asthma with (acute) exacerbation (6) Diabetes Code(s): E11.9 - TYPE 2 DIABETES MELLITUS WITHOUT COMPLICATIONS (7) Hyperthyroidism Code(s): E05.90 - THYROTOXICOSIS, UNSP WITHOUT THYROTOXIC CRISIS OR STORM (8) HTN (hypertension) Code(s): I10 - ESSENTIAL (PRIMARY) HYPERTENSION plan continue current mgmt awaiting for results
--- NOTE | 2019-09-22 21:45 | PN ---
Progress Note, Physician History of Present Illness: No new complaints - Current Medication List Current Medications: Active Medications Acetaminophen (Tylenol -) 650 mg PO Q6H PRN PRN Reason: PAIN 1-5 Last Admin: 09/19/19 20:45 Dose: 650 mg Documented by: Aspirin (Asa -) 81 mg PO DAILY [facility] Last Admin: 09/22/19 10:10 Dose: 81 mg Documented by: Budesonide/Formoterol Fumarate (Symbicort 160/4.5mcg -) 2 puff IH BID [facility] Last Admin: 09/22/19 21:25 Dose: 2 puff Documented by: Insulin Aspart (Novolog Vial Sliding Scale -) 1 vial SQ ACHS [facility]; Protocol Last Admin: 09/22/19 21:21 Dose: Not Given Documented by: Insulin Detemir (Levemir Vial) 20 units SQ 0700,2200 [facility] Last Admin: 09/22/19 21:21 Dose: Not Given Documented by: Levofloxacin (Levaquin) 750 mg PO DAILY [facility] Last Admin: 09/22/19 10:12 Dose: 750 mg Documented by: Metformin HCl (Glucophage -) 1,000 mg PO 0700,1630 [facility] Last Admin: 09/22/19 16:07 Dose: 1,000 mg Documented by: Metoprolol Succinate (Toprol Xl -) 25 mg PO DAILY [facility] Last Admin: 09/22/19 10:10 Dose: 25 mg Documented by: Nicotine (Nicoderm Patch -) 14 mg TD DAILY [facility] Last Admin: 09/22/19 10:12 Dose: 14 mg Documented by: Ondansetron HCl (Zofran Injection) 4 mg IVPUSH Q6H PRN PRN Reason: NAUSEA AND/OR VOMITING Last Admin: 09/21/19 19:30 Dose: 4 mg Documented by: Pantoprazole Sodium (Protonix -) 40 mg PO DAILY [facility] Last Admin: 09/22/19 10:12 Dose: 40 mg Documented by: Propylthiouracil (Ptu -) 50 mg PO TID [facility] Last Admin: 09/22/19 21:24 Dose: 50 mg Documented by: Rifaximin (Xifaxan -) 550 mg PO TID [facility] Last Admin: 09/22/19 21:22 Dose: Not Given Documented by: Sacubitril/Valsartan (Entresto 24 Mg-26 Mg Tablet) 1 tab PO BID [facility] Last Admin: 09/22/19 21:24 Dose: 1 tab Documented by: Sitagliptin Phosphate (Januvia -) 50 mg PO 0700,1630 [facility] Last Admin: 09/22/19 16:07 Dose: 50 mg Documented by: Spironolactone (Aldactone -) 25 mg PO DAILY [facility] Last Admin: 09/22/19 10:12 Dose: 25 mg Documented by: - Objective Vital Signs: Vital Signs Temperature 98.4 F 09/22/19 21:00 Pulse Rate 85 09/22/19 21:00 Respiratory Rate 18 09/22/19 21:00 Blood Pressure 127/79 09/22/19 21:00 O2 Sat by Pulse Oximetry (%) 100 09/22/19 21:00 Neck: Yes: WNL, Supple Cardiovascular: Yes: WNL, Regular Rate and Rhythm Respiratory: Yes: WNL, Regular, CTA Bilaterally Gastrointestinal: Yes: WNL, Normal Bowel Sounds, Soft Labs: CBC, BMP 09/18/19 13:00 09/18/19 13:00 Problem List - Problems (1) Acute on chronic systolic (congestive) heart failure Assessment/Plan: Cont entresto/spironolactone DC planning for am Code(s): I50.23 - ACUTE ON CHRONIC SYSTOLIC (CONGESTIVE) HEART FAILURE (2) Abnormal CT lung screening Assessment/Plan: Ground glass opacities on ct scan chest COVID result is negative however repeat COVID is also negative Cont PO levaquin Code(s): R91.8 - OTHER NONSPECIFIC ABNORMAL FINDING OF LUNG FIELD (3) Chest pain Assessment/Plan: Resolved Slightly elevated troponin Code(s): R07.9 - CHEST PAIN, UNSPECIFIED Qualifiers: Chest pain type: unspecified Qualified Code(s): R07.9 - Chest pain, unspecified (4) Elevated troponin Code(s): R79.89 - OTHER SPECIFIED ABNORMAL FINDINGS OF BLOOD CHEMISTRY (5) Abdominal pain Assessment/Plan: ?Due to GERD Code(s): R10.9 - UNSPECIFIED ABDOMINAL PAIN Qualifiers: Abdominal location: right upper quadrant Qualified Code(s): R10.11 - Right upper quadrant pain (6) Diabetes Assessment/Plan: Cont sliding scale w/ coverage Cont levemir Cont Code(s): E11.9 - TYPE 2 DIABETES MELLITUS WITHOUT COMPLICATIONS (7) HTN (hypertension) Assessment/Plan: Cont metoprolol Code(s): I10 - ESSENTIAL (PRIMARY) HYPERTENSION (8) Hyperthyroidism Code(s): E05.90 - THYROTOXICOSIS, UNSP WITHOUT THYROTOXIC CRISIS OR STORM
[2019-09-23] MEDS: INSULIN (LEVEMIR) 100 UNITS/ML UNITS SQ SCH (06:00)
[2019-09-23] MEDS: RIFAXIMIN 550 MG TABLET (UD) PO SCH ×2 (06:00→13:41)
[2019-09-23] MEDS: INSULIN SLIDING SCALE (NOVOLOG) 1 VIAL SQ SCH ×2 (06:00→13:37)
[2019-09-23] MEDS ORDERED: PT OWN MED DRAWER 7, Y5N ONE ×3 (06:10→13:43)
[2019-09-23] MEDS: metFORMIN HCL 500 MG TABLET (FP) PO SCH (06:12)
[2019-09-23] MEDS: sitaGLIPtin PHOSPHATE 50 MG TABLET PO SCH (06:14)
[2019-09-23] MEDS: PROPYLTHIOURACIL 50 MG TABLET (UD) PO SCH ×2 (06:14→13:41)
[2019-09-23] MEDS: ASPIRIN 81 MG CHEWABLE TABLETS PO SCH (09:46)
[2019-09-23] MEDS: PANTOPRAZOLE 40 MG TABLET PO SCH (09:46)
[2019-09-23] MEDS: SPIRONOLACTONE 25 MG TABLET PO SCH (09:46)
[2019-09-23] MEDS: SACUBITRIL/VALSARTAN 24 MG-26 MG TABLET PO SCH (09:47)
[2019-09-23] MEDS: NICOTINE 14 MG/24 HOURS TOPICAL PATCH TD SCH (09:48)
[2019-09-23] MEDS: levoFLOXacin 750 MG TABLET PO SCH (09:48)
[2019-09-23] MEDS: ONDANSETRON 4 MG/2 ML VIAL IVPUSH PRN (13:39)
[2019-09-23] MEDS: BUDESONIDE/FORMETEROL FUMARATE 160/4.5 mcg INHALER IH SCH (13:41)
[2019-09-23 13:59] VITALS: BP 104/70; PULSE 66; TEMP 98
--- NOTE | 2019-09-23 14:18 | PN ---
Progress Note, Physician - Current Medication List Current Medications: Active Medications Acetaminophen (Tylenol -) 650 mg PO Q6H PRN PRN Reason: PAIN 1-5 Last Admin: 09/19/19 20:45 Dose: 650 mg Documented by: Aspirin (Asa -) 81 mg PO DAILY [facility] Last Admin: 09/23/19 09:46 Dose: 81 mg Documented by: Budesonide/Formoterol Fumarate (Symbicort 160/4.5mcg -) 2 puff IH BID [facility] Last Admin: 09/23/19 13:41 Dose: 2 puff Documented by: Insulin Aspart (Novolog Vial Sliding Scale -) 1 vial SQ ACHS [facility]; Protocol Last Admin: 09/23/19 13:37 Dose: 2 units Documented by: Insulin Detemir (Levemir Vial) 20 units SQ 0700,2200 [facility] Last Admin: 09/23/19 06:00 Dose: Not Given Documented by: Levofloxacin (Levaquin) 750 mg PO DAILY [facility] Last Admin: 09/23/19 09:48 Dose: 750 mg Documented by: Metformin HCl (Glucophage -) 1,000 mg PO 0700,1630 [facility] Last Admin: 09/23/19 06:12 Dose: 1,000 mg Documented by: Metoprolol Succinate (Toprol Xl -) 25 mg PO DAILY [facility] Last Admin: 09/23/19 09:47 Dose: 25 mg Documented by: Nicotine (Nicoderm Patch -) 14 mg TD DAILY [facility] Last Admin: 09/23/19 09:48 Dose: 14 mg Documented by: Ondansetron HCl (Zofran Injection) 4 mg IVPUSH Q6H PRN PRN Reason: NAUSEA AND/OR VOMITING Last Admin: 09/23/19 13:39 Dose: 4 mg Documented by: Pantoprazole Sodium (Protonix -) 40 mg PO DAILY [facility] Last Admin: 09/23/19 09:46 Dose: 40 mg Documented by: Propylthiouracil (Ptu -) 50 mg PO TID [facility] Last Admin: 09/23/19 13:41 Dose: 50 mg Documented by: Rifaximin (Xifaxan -) 550 mg PO TID [facility] Last Admin: 09/23/19 13:41 Dose: 550 mg Documented by: Sacubitril/Valsartan (Entresto 24 Mg-26 Mg Tablet) 1 tab PO BID [facility] Last Admin: 09/23/19 09:47 Dose: 1 tab Documented by: Sitagliptin Phosphate (Januvia -) 50 mg PO 0700,1630 [facility] Last Admin: 09/23/19 06:14 Dose: 50 mg Documented by: Spironolactone (Aldactone -) 25 mg PO DAILY [facility] Last Admin: 09/23/19 09:46 Dose: 25 mg Documented by: - Objective Vital Signs: Vital Signs Temperature 98 F 09/23/19 13:53 Pulse Rate 66 09/23/19 13:53 Respiratory Rate 11 09/23/19 13:53 Blood Pressure 104/70 09/23/19 13:53 O2 Sat by Pulse Oximetry (%) 100 09/22/19 21:00 Labs: CBC, BMP 09/18/19 13:00 09/18/19 13:00
--- NOTE | 2019-09-23 15:58 | PN ---
Progress Note, Physician History of Present Illness: The pt is a 54F w/ a PMH of HTN, HLD, DM, hyperthyroidism, GERD, Asthma who presents for evaluation of 2 weeks of intermittent SOB. The pt reports intermittent episodes of shortness of breath that last approximately 10 minutes at a time. They are not related to exertion any trigger she can identify. She reports associated R chest wall pain with deep inspiration. She denies fever, cough, abd pain, N/V/D, dysuria, hematuria. Of note, she was provided an albuterol inhaler yesterday that she has been using every couple of hours. She states she has not had anything happen like this before. Denies history of [place] or stroke 09/18/19 01:07 - Objective Vital Signs: Vital Signs Temperature 98 F 09/23/19 13:53 Pulse Rate 66 09/23/19 13:53 Respiratory Rate 11 09/23/19 13:53 Blood Pressure 104/70 09/23/19 13:53 O2 Sat by Pulse Oximetry (%) 100 09/22/19 21:00 Eyes: Yes: WNL, Conjunctiva Clear, EOM Intact HENT: Yes: WNL, Atraumatic, Normocephalic Neck: Yes: WNL, Supple, Trachea Midline Cardiovascular: Yes: WNL, Regular Rate and Rhythm Respiratory: Yes: WNL, Regular, CTA Bilaterally Gastrointestinal: Yes: WNL, Normal Bowel Sounds Genitourinary: Yes: WNL Musculoskeletal: Yes: WNL Extremities: Yes: WNL Edema: No Integumentary: Yes: WNL Neurological: Yes: WNL, Alert, Oriented ...Motor Strength: WNL Psychiatric: Yes: WNL Labs: CBC, BMP 09/18/19 13:00 09/18/19 13:00 Problem List - Problems (1) Abdominal pain Code(s): R10.9 - UNSPECIFIED ABDOMINAL PAIN Qualifiers: Abdominal location: right upper quadrant Qualified Code(s): R10.11 - Right upper quadrant pain (2) Chest pain Code(s): R07.9 - CHEST PAIN, UNSPECIFIED Qualifiers: Chest pain type: unspecified Qualified Code(s): R07.9 - Chest pain, unspecified (3) Interstitial edema Code(s): R60.9 - EDEMA, UNSPECIFIED (4) SOB (shortness of breath) Code(s): R06.02 - SHORTNESS OF BREATH (5) Suspected 2019 novel coronavirus infection Code(s): Z20.828 - CONTACT W AND EXPOSURE TO OTH VIRAL COMMUNICABLE DISEASES (6) Asthma Code(s): J45.909 - UNSPECIFIED ASTHMA, UNCOMPLICATED Qualifiers: Asthma severity: mild Asthma persistence: intermittent Asthma complication type: with acute exacerbation Qualified Code(s): J45.21 - Mild intermittent asthma with (acute) exacerbation (7) Right upper quadrant abdominal pain Code(s): R10.11 - RIGHT UPPER QUADRANT PAIN (8) Upper respiratory infection Code(s): J06.9 - ACUTE UPPER RESPIRATORY INFECTION, UNSPECIFIED Qualifiers: URI type: unspecified URI Qualified Code(s): J06.9 - Acute upper respiratory infection, unspecified Assessment/Plan HTN, HLD, DM, hyperthyroidism, GERD, formerly morbid obesity, admitted with systolic CHF exacerbation and low level TNIs. Pt says symptoms started only a few weeks ago (but later admits she was started on a bronchodilator pump a few years ago because she began having trouble breathing), as did the bilateral LE edema. CTA neg for PE ECHO showed CMP EF 15% ? noncompaction sx. Dilated cardiomyopathy. (Denies hx peripartum cardiomyopathy) Plan COVID not detected; presently in isolation for CT "ground glass" lungs. Telemetry ASA Started Entresto On metoprolol ("asthma" hx likely CHF) started spironolactone. Started nicotine patch DVT PLX Pt seemed reassured when reasons for her being transferred to isolation were explained. dr. Meyer communicated with pt's caridologist, Dr. Evans: pt had mildlyr reduced LVEF on ECHO 10/2018 (she had been having nagging pain under left breast; + edema of feet; on metoprolol, valsartan/HCTZ, insulin, PTU, Ibuprofen, singulair, canagufloxin; mother with CAD); on 09/17/19, repeat ECHO there showed severely reduced LVEF and reduced RVEF, mild MR; no pericardial effusion. Will plan on pt seeing Dr. Evans and heart failure group as outpatient. Will need coronary angiogram, right and left heart cath, cardiac MRI and possible ICD. cc time spent 37 min
== END 2019-09-23 15:10 | disposition home or self-care (01) | DRG 292 ==
LOC: JER 00:15 → JERBED 02:17 → OBSVTOIN 02:17 → J4W 16:39 → JICU 09-20 09:04
PROVIDERS: ADMIT Internal Medicine; ATTEND Internal Medicine
DX: I11.0 Hypertensive heart disease with heart failure (principal); J45.21 Mild intermittent asthma with (acute) exacerbation; I50.23 Acute on chronic systolic (congestive) heart failure; R07.9 Chest pain, unspecified; E05.90 Thyrotoxicosis, unspecified without thyrotoxic crisis or storm; E11.9 Type 2 diabetes mellitus without complications; R10.11 Right upper quadrant pain; J06.9 Acute upper respiratory infection, unspecified; K21.9 Gastro-esophageal reflux disease without esophagitis; I42.0 Dilated cardiomyopathy; R79.89 Other specified abnormal findings of blood chemistry; E78.5 Hyperlipidemia, unspecified
CPT/HCPCS: 36415; 71045-TC-FY; 71275-TC; 74177-TC; 76705-TC; 80053; 82550; 82553; 82962; 83615; 83690; 83880; 84484; 84703; 85025; 85379; 86140; 93005; 93010; 93306-TC; 99285-25; J0131; Q9967; U0003

== ENCOUNTER 2020-03-07 08:29 | Inpatient (IN) | payer OTHER ==
[2020-03-07 09:49] LABS: BASO % 0.7 % (0-2.0); EOS % 1.4 % (0-4.5); HEMATOCRIT 37.4 % (32.4-45.2); HEMOGLOBIN 11.9 GM/dL (10.7-15.3); LYMPH % 32.8 % (8-40); MCH 26.8 pg (25.7-33.7); MCHC 31.8 g/dl (32.0-36.0); MEAN CELL VOLUME 84.5 fl (80-96); MEAN PLT VOLUME 9.9 fl (7.5-11.1); MONO % 9.2 % (3.8-10.2); NEUT % 55.9 % (42.8-82.8); PLATELET COUNT 187 K/MM3 (134-434); RBC 4.42 M/mm3 (3.60-5.2); WHITE BLOOD COUNT 10.4 K/mm3 (4.0-10.0)
[2020-03-07 09:58] LABS: INR 1.18 (0.83-1.09); PROTHROMBIN TIME (PATIENT) 14.2 SEC (9.7-13.0)
[2020-03-07 10:00] LABS: ACTIVATED PTT 28.6 SECONDS (25.2-36.5)
[2020-03-07 10:05] LABS: POTASSIUM 3.3 mmol/L (3.5-5.1)
[2020-03-07 10:07] LABS: ALBUMIN 3.4 g/dl (3.4-5.0); CALCIUM 8.7 mg/dL (8.5-10.1)
[2020-03-07 10:08] LABS: MAGNESIUM 1.7 mg/dL (1.8-2.4)
[2020-03-07 10:10] LABS: PHOSPHOROUS 3.7 mg/dL (2.5-4.9)
[2020-03-07 10:12] LABS: BILIRUBIN,TOTAL 0.7 mg/dL (0.2-1); CREATININE 0.8 mg/dL (0.55-1.3); TOT PROT 6.8 g/dl (6.4-8.2)
[2020-03-07 10:16] LABS: N-TERMINAL BNP 4001.4 pg/ml (5-125)
[2020-03-07] MEDS ORDERED: POTASSIUM CHLORIDE 20 MEQ PREMIX IVPB 100 ML IVPB ONE (10:55)
[2020-03-07] MEDS ORDERED: MAGNESIUM SULF 50% (8.12 MEQ/2 ML-1 GM VIAL) IVPB ONE (10:56)
[2020-03-07] MEDS ORDERED: POTASSIUM CHLORIDE ORAL LIQUID 20 MEQ/15 ML PO ONE (11:13)
[2020-03-07] MEDS ORDERED: MAGNESIUM 1GM/D5W - 1 GM/100 ML IVPB IVPB ONE (11:15)
[2020-03-07] MEDS ORDERED: POTASSIUM CHLORIDE ORAL LIQUID 20 MEQ/15 ML ONE (11:15)
[2020-03-07] MEDS ORDERED: ONDANSETRON 4 MG/2 ML VIAL IVPUSH ONE (13:19)
[2020-03-07] MEDS ORDERED: FUROSEMIDE 40 MG/4 ML INJECTABLE VIAL IVPUSH ONE (14:54)
[2020-03-07] MEDS ORDERED: FUROSEMIDE 40 MG/4 ML INJECTABLE VIAL ONE (15:12)
[2020-03-07] MEDS ORDERED: ALBUTEROL SO4 2.5/IPRATROPIUM 0.5 INH SOL 3 ML VIAL.NEB. NEB PRN (21:45)
[2020-03-07] MEDS ORDERED: PT OWN MED DRAWER 7, Y5N ONE (22:05)
[2020-03-07] MEDS: SACUBITRIL/VALSARTAN 24 MG-26 MG TABLET PO SCH (22:41)
[2020-03-07] MEDS: RIFAXIMIN 550 MG TABLET (UD) PO SCH (22:42)
[2020-03-07] MEDS: PROPYLTHIOURACIL 50 MG TABLET (UD) PO SCH (22:42)
[2020-03-07] MEDS: INSULIN (LEVEMIR) 100 UNITS/ML UNITS SQ SCH (22:43)
[2020-03-07] MEDS: BUDESONIDE/FORMETEROL FUMARATE 160/4.5 mcg INHALER IH SCH (22:43)
[2020-03-08 01:32] VITALS: BMI 29.3
[2020-03-08 03:59] LABS: PH,URINE 6.5 (5.0-8.0); URINE APPEARANCE CLEAR; URINE BILIRUBIN NEGATIVE (NEGATIVE); URINE COLOR YELLOW; URINE GLUCOSE (UA) NEGATIVE (NEGATIVE); URINE KETONE NEGATIVE (NEGATIVE); URINE LEUK ESTERASE NEGATIVE (NEGATIVE); URINE NITRITE NEGATIVE (NEGATIVE); URINE PROTEIN NEGATIVE (NEGATIVE); URINE UROBILINOGEN 0.2 mg/dL (0.2-1.0)
[2020-03-08] MEDS: INSULIN (LEVEMIR) 100 UNITS/ML UNITS SQ SCH ×2 (06:36→21:10)
[2020-03-08] MEDS: INSULIN SLIDING SCALE (NOVOLOG) 1 VIAL SQ SCH ×4 (06:36→21:10)
[2020-03-08] MEDS: RIFAXIMIN 550 MG TABLET (UD) PO SCH ×3 (06:36→21:09)
[2020-03-08] MEDS: PROPYLTHIOURACIL 50 MG TABLET (UD) PO SCH ×3 (06:36→21:09)
[2020-03-08 07:41] LABS: BASO % 0.5 % (0-2.0); HEMATOCRIT 36.7 % (32.4-45.2); HEMOGLOBIN 11.8 GM/dL (10.7-15.3); LYMPH % 34.8 % (8-40); MCH 26.9 pg (25.7-33.7); MCHC 32.1 g/dl (32.0-36.0); MEAN CELL VOLUME 83.8 fl (80-96); MEAN PLT VOLUME 9.9 fl (7.5-11.1); MONO % 9.8 % (3.8-10.2); NEUT % 52.9 % (42.8-82.8); PLATELET COUNT 175 K/MM3 (134-434); RBC 4.38 M/mm3 (3.60-5.2); RDW 14.8 % (11.6-15.6); WHITE BLOOD COUNT 8.4 K/mm3 (4.0-10.0)
[2020-03-08 07:57] LABS: POTASSIUM 3.9 mmol/L (3.5-5.1)
[2020-03-08 07:59] LABS: CALCIUM 8.5 mg/dL (8.5-10.1)
[2020-03-08 08:00] LABS: ALBUMIN 3.2 g/dl (3.4-5.0); BLOOD UREA NITROGEN 8.6 mg/dL (7-18)
[2020-03-08 08:03] LABS: CREATININE 0.7 mg/dL (0.55-1.3)
[2020-03-08 08:04] LABS: BILIRUBIN,TOTAL 0.6 mg/dL (0.2-1)
[2020-03-08 08:05] LABS: TOT PROT 6.5 g/dl (6.4-8.2)
[2020-03-08] MEDS: FUROSEMIDE 40 MG/4 ML INJECTABLE VIAL IVPUSH SCH (09:01)
[2020-03-08] MEDS: SACUBITRIL/VALSARTAN 24 MG-26 MG TABLET PO SCH ×2 (09:01→21:09)
[2020-03-08] MEDS: PANTOPRAZOLE 40 MG TABLET PO SCH (09:01)
[2020-03-08] MEDS: metoPROLOL SUCCINATE 25 MG TAB.SR.24H (FP) PO SCH (09:01)
[2020-03-08] MEDS: SPIRONOLACTONE 25 MG TABLET PO SCH (09:01)
[2020-03-08] MEDS: ASPIRIN COATED 81 MG TABLET.EC PO SCH (09:01)
[2020-03-08] MEDS: ENOXAPARIN NA (PORCINE) 40 MG/0.4 ML DISP.SYRIN SQ SCH (09:02)
[2020-03-08] MEDS: BUDESONIDE/FORMETEROL FUMARATE 160/4.5 mcg INHALER IH SCH ×2 (09:03→21:11)
[2020-03-08] MEDS ORDERED: PT OWN MED DRAWER 7, Y5N ONE ×3 (09:30→20:37)
[2020-03-08] MEDS: NICOTINE 14 MG/24 HOURS TOPICAL PATCH TD SCH (11:14)
[2020-03-09] MEDS ORDERED: PT OWN MED DRAWER 7, Y5N ONE ×3 (06:40→21:24)
[2020-03-09] MEDS: RIFAXIMIN 550 MG TABLET (UD) PO SCH ×3 (06:41→21:26)
[2020-03-09] MEDS: PROPYLTHIOURACIL 50 MG TABLET (UD) PO SCH ×3 (06:41→21:26)
[2020-03-09] MEDS: INSULIN SLIDING SCALE (NOVOLOG) 1 VIAL SQ SCH ×4 (06:49→21:27)
[2020-03-09] MEDS: INSULIN (LEVEMIR) 100 UNITS/ML UNITS SQ SCH ×2 (06:49→21:26)
[2020-03-09 07:52] LABS: BASO % 0.5 % (0-2.0); HEMATOCRIT 42.8 % (32.4-45.2); HEMOGLOBIN 13.8 GM/dL (10.7-15.3); LYMPH % 38.3 % (8-40); MCH 27.2 pg (25.7-33.7); MCHC 32.3 g/dl (32.0-36.0); MEAN CELL VOLUME 84.2 fl (80-96); MEAN PLT VOLUME 10.1 fl (7.5-11.1); MONO % 11.1 % (3.8-10.2); NEUT % 48.1 % (42.8-82.8); RBC 5.08 M/mm3 (3.60-5.2); WHITE BLOOD COUNT 9.5 K/mm3 (4.0-10.0)
[2020-03-09 07:58] LABS: ALBUMIN 3.5 g/dl (3.4-5.0); BLOOD UREA NITROGEN 9.2 mg/dL (7-18)
[2020-03-09 08:01] LABS: CREATININE 0.7 mg/dL (0.55-1.3)
[2020-03-09 08:03] LABS: BILIRUBIN,TOTAL 0.8 mg/dL (0.2-1); TOT PROT 7.2 g/dl (6.4-8.2)
[2020-03-09] MEDS: metoPROLOL SUCCINATE 25 MG TAB.SR.24H (FP) PO SCH (09:09)
[2020-03-09] MEDS: ASPIRIN COATED 81 MG TABLET.EC PO SCH (09:09)
[2020-03-09] MEDS: FUROSEMIDE 40 MG/4 ML INJECTABLE VIAL IVPUSH SCH (09:09)
[2020-03-09] MEDS: SPIRONOLACTONE 25 MG TABLET PO SCH (09:09)
[2020-03-09] MEDS: PANTOPRAZOLE 40 MG TABLET PO SCH (09:09)
[2020-03-09] MEDS: SACUBITRIL/VALSARTAN 24 MG-26 MG TABLET PO SCH ×2 (09:09→21:26)
[2020-03-09] MEDS: ENOXAPARIN NA (PORCINE) 40 MG/0.4 ML DISP.SYRIN SQ SCH (09:09)
[2020-03-09] MEDS: BUDESONIDE/FORMETEROL FUMARATE 160/4.5 mcg INHALER IH SCH ×2 (09:10→21:57)
[2020-03-09] MEDS: NICOTINE 14 MG/24 HOURS TOPICAL PATCH TD SCH (10:38)
[2020-03-09 10:54] LABS: PLATELET COUNT 220 K/MM3 (134-434)
[2020-03-10] MEDS ORDERED: PT OWN MED DRAWER 7, Y5N ONE ×6 (06:45→21:34)
[2020-03-10] MEDS: PROPYLTHIOURACIL 50 MG TABLET (UD) PO SCH ×3 (06:52→22:21)
[2020-03-10] MEDS: INSULIN (LEVEMIR) 100 UNITS/ML UNITS SQ SCH ×2 (06:52→22:00)
[2020-03-10] MEDS: RIFAXIMIN 550 MG TABLET (UD) PO SCH ×3 (06:52→21:59)
[2020-03-10] MEDS: INSULIN SLIDING SCALE (NOVOLOG) 1 VIAL SQ SCH ×4 (06:53→22:00)
[2020-03-10 07:39] LABS: BASO % 0.4 % (0-2.0); EOS % 2.1 % (0-4.5); HEMATOCRIT 39.2 % (32.4-45.2); HEMOGLOBIN 12.7 GM/dL (10.7-15.3); LYMPH % 39.4 % (8-40); MCH 27.1 pg (25.7-33.7); MCHC 32.3 g/dl (32.0-36.0); MEAN CELL VOLUME 83.9 fl (80-96); MONO % 11.2 % (3.8-10.2); NEUT % 46.9 % (42.8-82.8); PLATELET COUNT 181 K/MM3 (134-434); RBC 4.68 M/mm3 (3.60-5.2); RDW 14.9 % (11.6-15.6); WHITE BLOOD COUNT 7.8 K/mm3 (4.0-10.0)
[2020-03-10 07:55] LABS: POTASSIUM 4.1 mmol/L (3.5-5.1)
[2020-03-10 08:04] LABS: BLOOD UREA NITROGEN 13.6 mg/dL (7-18); CALCIUM 8.5 mg/dL (8.5-10.1)
[2020-03-10 08:08] LABS: CREATININE 0.7 mg/dL (0.55-1.3)
[2020-03-10 08:09] LABS: BILIRUBIN,TOTAL 0.5 mg/dL (0.2-1); TOT PROT 6.4 g/dl (6.4-8.2)
[2020-03-10] MEDS: SPIRONOLACTONE 25 MG TABLET PO SCH (09:20)
[2020-03-10] MEDS: SACUBITRIL/VALSARTAN 24 MG-26 MG TABLET PO SCH ×2 (09:20→21:59)
[2020-03-10] MEDS: PANTOPRAZOLE 40 MG TABLET PO SCH (09:20)
[2020-03-10] MEDS: metoPROLOL SUCCINATE 25 MG TAB.SR.24H (FP) PO SCH (09:20)
[2020-03-10] MEDS: ENOXAPARIN NA (PORCINE) 40 MG/0.4 ML DISP.SYRIN SQ SCH (09:21)
[2020-03-10] MEDS: FUROSEMIDE 40 MG/4 ML INJECTABLE VIAL IVPUSH SCH (09:22)
[2020-03-10] MEDS: NICOTINE 14 MG/24 HOURS TOPICAL PATCH TD SCH (09:22)
[2020-03-10] MEDS: ASPIRIN COATED 81 MG TABLET.EC PO SCH (09:22)
[2020-03-10] MEDS: BUDESONIDE/FORMETEROL FUMARATE 160/4.5 mcg INHALER IH SCH ×2 (09:24→22:01)
[2020-03-10 12:38] LABS: MAGNESIUM 1.9 mg/dL (1.8-2.4)
[2020-03-10] MEDS ORDERED: MAGNESIUM SULF 50% (8.12 MEQ/2 ML-1 GM VIAL) IVPB ONE (13:38)
[2020-03-11] MEDS: PROPYLTHIOURACIL 50 MG TABLET (UD) PO SCH ×3 (06:10→21:20)
[2020-03-11] MEDS: INSULIN (LEVEMIR) 100 UNITS/ML UNITS SQ SCH ×2 (06:11→21:26)
[2020-03-11] MEDS: INSULIN SLIDING SCALE (NOVOLOG) 1 VIAL SQ SCH ×4 (06:11→21:26)
[2020-03-11] MEDS: RIFAXIMIN 550 MG TABLET (UD) PO SCH ×3 (06:11→21:21)
[2020-03-11] MEDS ORDERED: INSULIN (LEVEMIR) 100 UNITS/ML UNITS SQ ONE (07:42)
[2020-03-11 07:57] LABS: BASO % 0.5 % (0-2.0); HEMATOCRIT 40.9 % (32.4-45.2); HEMOGLOBIN 13.3 GM/dL (10.7-15.3); LYMPH % 44.1 % (8-40); MCH 27.2 pg (25.7-33.7); MCHC 32.4 g/dl (32.0-36.0); MEAN CELL VOLUME 83.9 fl (80-96); MEAN PLT VOLUME 9.4 fl (7.5-11.1); MONO % 11.6 % (3.8-10.2); NEUT % 40.8 % (42.8-82.8); PLATELET COUNT 194 K/MM3 (134-434); RBC 4.88 M/mm3 (3.60-5.2)
[2020-03-11 08:01] LABS: ALBUMIN 3.4 g/dl (3.4-5.0); BILIRUBIN,TOTAL 0.7 mg/dL (0.2-1); BLOOD UREA NITROGEN 16.1 mg/dL (7-18); CREATININE 0.7 mg/dL (0.55-1.3); MAGNESIUM 2.2 mg/dL (1.8-2.4); POTASSIUM 4.5 mmol/L (3.5-5.1); TOT PROT 7.1 g/dl (6.4-8.2)
[2020-03-11] MEDS: ENOXAPARIN NA (PORCINE) 40 MG/0.4 ML DISP.SYRIN SQ SCH (09:50)
[2020-03-11] MEDS: PANTOPRAZOLE 40 MG TABLET PO SCH (09:50)
[2020-03-11] MEDS: FUROSEMIDE 20 MG TABLET (FP) PO SCH (09:50)
[2020-03-11] MEDS: SACUBITRIL/VALSARTAN 24 MG-26 MG TABLET PO SCH ×2 (09:50→21:20)
[2020-03-11] MEDS: metoPROLOL SUCCINATE 25 MG TAB.SR.24H (FP) PO SCH (09:50)
[2020-03-11] MEDS: NICOTINE 14 MG/24 HOURS TOPICAL PATCH TD SCH (09:51)
[2020-03-11] MEDS: SPIRONOLACTONE 25 MG TABLET PO SCH (09:51)
[2020-03-11] MEDS: BUDESONIDE/FORMETEROL FUMARATE 160/4.5 mcg INHALER IH SCH ×2 (09:52→21:21)
[2020-03-11] MEDS ORDERED: PT OWN MED DRAWER 7, Y5N ONE (21:13)
[2020-03-12] MEDS: PROPYLTHIOURACIL 50 MG TABLET (UD) PO SCH ×3 (06:59→22:44)
[2020-03-12] MEDS: RIFAXIMIN 550 MG TABLET (UD) PO SCH ×3 (06:59→22:44)
[2020-03-12] MEDS: INSULIN (LEVEMIR) 100 UNITS/ML UNITS SQ SCH ×2 (07:00→22:43)
[2020-03-12] MEDS: INSULIN SLIDING SCALE (NOVOLOG) 1 VIAL SQ SCH ×4 (07:00→22:44)
[2020-03-12 07:30] LABS: BASO % 0.5 % (0-2.0); EOS % 2.6 % (0-4.5); HEMATOCRIT 41.6 % (32.4-45.2); HEMOGLOBIN 13.4 GM/dL (10.7-15.3); LYMPH % 44.3 % (8-40); MCH 27.1 pg (25.7-33.7); MCHC 32.2 g/dl (32.0-36.0); MEAN CELL VOLUME 84.2 fl (80-96); MEAN PLT VOLUME 9.4 fl (7.5-11.1); MONO % 10.8 % (3.8-10.2); NEUT % 41.8 % (42.8-82.8); PLATELET COUNT 183 K/MM3 (134-434); RBC 4.93 M/mm3 (3.60-5.2); RDW 15.2 % (11.6-15.6); WHITE BLOOD COUNT 7.7 K/mm3 (4.0-10.0)
[2020-03-12 07:50] LABS: POTASSIUM 4.9 mmol/L (3.5-5.1)
[2020-03-12 07:58] LABS: ALBUMIN 3.2 g/dl (3.4-5.0); BLOOD UREA NITROGEN 16.7 mg/dL (7-18); CALCIUM 8.6 mg/dL (8.5-10.1)
[2020-03-12 08:01] LABS: CREATININE 0.7 mg/dL (0.55-1.3)
[2020-03-12 08:03] LABS: BILIRUBIN,TOTAL 0.5 mg/dL (0.2-1); TOT PROT 6.9 g/dl (6.4-8.2)
[2020-03-12] MEDS ORDERED: PT OWN MED DRAWER 7, Y5N ONE ×3 (09:55→22:30)
[2020-03-12] MEDS: NICOTINE 14 MG/24 HOURS TOPICAL PATCH TD SCH (09:59)
[2020-03-12] MEDS: BUDESONIDE/FORMETEROL FUMARATE 160/4.5 mcg INHALER IH SCH ×2 (09:59→22:46)
[2020-03-12] MEDS: ENOXAPARIN NA (PORCINE) 40 MG/0.4 ML DISP.SYRIN SQ SCH (09:59)
[2020-03-12] MEDS: metoPROLOL SUCCINATE 25 MG TAB.SR.24H (FP) PO SCH (10:00)
[2020-03-12] MEDS: FUROSEMIDE 20 MG TABLET (FP) PO SCH (10:00)
[2020-03-12] MEDS: SACUBITRIL/VALSARTAN 24 MG-26 MG TABLET PO SCH ×2 (10:00→22:44)
[2020-03-12] MEDS: PANTOPRAZOLE 40 MG TABLET PO SCH (10:00)
[2020-03-12] MEDS: SPIRONOLACTONE 25 MG TABLET PO SCH (10:00)
[2020-03-12] MEDS: ACETAMINOPHEN 325 MG TABLET (FP) PO PRN (22:44)
[2020-03-13] MEDS: INSULIN SLIDING SCALE (NOVOLOG) 1 VIAL SQ SCH ×4 (06:13→21:54)
[2020-03-13] MEDS ORDERED: PT OWN MED DRAWER 7, Y5N ONE ×4 (07:08→13:22)
[2020-03-13] MEDS: PROPYLTHIOURACIL 50 MG TABLET (UD) PO SCH ×3 (07:10→21:55)
[2020-03-13] MEDS: RIFAXIMIN 550 MG TABLET (UD) PO SCH ×3 (07:10→21:55)
[2020-03-13] MEDS: ENOXAPARIN NA (PORCINE) 40 MG/0.4 ML DISP.SYRIN SQ SCH (09:26)
[2020-03-13] MEDS: INSULIN (LEVEMIR) 100 UNITS/ML UNITS SQ SCH ×2 (09:27→21:54)
[2020-03-13] MEDS: PANTOPRAZOLE 40 MG TABLET PO SCH (09:27)
[2020-03-13] MEDS: SACUBITRIL/VALSARTAN 24 MG-26 MG TABLET PO SCH ×2 (09:27→21:55)
[2020-03-13] MEDS: SPIRONOLACTONE 25 MG TABLET PO SCH (09:27)
[2020-03-13] MEDS: FUROSEMIDE 20 MG TABLET (FP) PO SCH (09:27)
[2020-03-13] MEDS: metoPROLOL SUCCINATE 25 MG TAB.SR.24H (FP) PO SCH (09:27)
[2020-03-13] MEDS: BUDESONIDE/FORMETEROL FUMARATE 160/4.5 mcg INHALER IH SCH ×2 (09:28→21:56)
[2020-03-13] MEDS: NICOTINE 14 MG/24 HOURS TOPICAL PATCH TD SCH (10:04)
[2020-03-13] MEDS: ACETAMINOPHEN 325 MG TABLET (FP) PO PRN (21:55)
[2020-03-14] MEDS: PROPYLTHIOURACIL 50 MG TABLET (UD) PO SCH ×2 (06:22→14:40)
[2020-03-14] MEDS: RIFAXIMIN 550 MG TABLET (UD) PO SCH ×2 (06:22→14:40)
[2020-03-14] MEDS: INSULIN SLIDING SCALE (NOVOLOG) 1 VIAL SQ SCH ×2 (06:48→11:26)
[2020-03-14] MEDS: INSULIN (LEVEMIR) 100 UNITS/ML UNITS SQ SCH (06:49)
[2020-03-14] MEDS: SPIRONOLACTONE 25 MG TABLET PO SCH (09:06)
[2020-03-14] MEDS: metoPROLOL SUCCINATE 25 MG TAB.SR.24H (FP) PO SCH (09:06)
[2020-03-14] MEDS: BUDESONIDE/FORMETEROL FUMARATE 160/4.5 mcg INHALER IH SCH (09:07)
[2020-03-14] MEDS: FUROSEMIDE 20 MG TABLET (FP) PO SCH (09:07)
[2020-03-14] MEDS: PANTOPRAZOLE 40 MG TABLET PO SCH (09:07)
[2020-03-14] MEDS: SACUBITRIL/VALSARTAN 24 MG-26 MG TABLET PO SCH (09:07)
[2020-03-14] MEDS: ENOXAPARIN NA (PORCINE) 40 MG/0.4 ML DISP.SYRIN SQ SCH (09:07)
[2020-03-14 09:13] VITALS: PULSE 85
[2020-03-14] MEDS ORDERED: PT OWN MED DRAWER 7, Y5N ONE (11:15)
[2020-03-14] MEDS: NICOTINE 14 MG/24 HOURS TOPICAL PATCH TD SCH (11:19)
[2020-03-14 13:45] VITALS: BP 132/81; TEMP 97.6
== END 2020-03-14 17:30 | disposition home or self-care (01) | DRG 292 ==
LOC: JER 08:29 → JERBED 15:28 → J4S 20:41
PROVIDERS: ADMIT Internal Medicine; ATTEND Internal Medicine
DX: I11.0 Hypertensive heart disease with heart failure (principal); I24.8 Other forms of acute ischemic heart disease; J45.20 Mild intermittent asthma, uncomplicated; E05.90 Thyrotoxicosis, unspecified without thyrotoxic crisis or storm; I50.23 Acute on chronic systolic (congestive) heart failure; E83.42 Hypomagnesemia; E87.6 Hypokalemia; D72.829 Elevated white blood cell count, unspecified; E78.5 Hyperlipidemia, unspecified; E11.9 Type 2 diabetes mellitus without complications; K21.9 Gastro-esophageal reflux disease without esophagitis; I42.0 Dilated cardiomyopathy
CPT/HCPCS: 36415; 71045-TC-FY; 71275-TC; 80053; 80061; 81003; 82550; 82553; 82962; 83036; 83605; 83690; 83721; 83735; 83880; 84100; 84443; 84484; 85025; 85379; 85610; 85730; 87086; 93005; 93010; 93306-TC; 93970-TC; 99285-25; C9803; Q9967; U0003

== ENCOUNTER 2020-09-25 11:36 | Inpatient (IN) | payer OTHER ==
[2020-09-25] MEDS ORDERED: ASPIRIN 81 MG CHEWABLE TABLETS PO ONE (13:12)
[2020-09-25 13:14] LABS: BASO % 0.5 % (0-2.0); HEMATOCRIT 37.1 % (32.4-45.2); HEMOGLOBIN 11.3 GM/dL (10.7-15.3); LYMPH % 17.4 % (8-40); MCH 24.1 pg (25.7-33.7); MCHC 30.6 g/dl (32.0-36.0); MEAN CELL VOLUME 78.8 fl (80-96); MEAN PLT VOLUME 9.3 fl (7.5-11.1); MONO % 4.2 % (3.8-10.2); NEUT % 77.9 % (42.8-82.8); PLATELET COUNT 233 10^3/uL (134-434); RBC 4.71 M/mm3 (3.60-5.2); RDW 16.4 % (11.6-15.6); WHITE BLOOD COUNT 9.8 K/mm3 (4.0-10.0)
[2020-09-25] MEDS ORDERED: ASPIRIN 81 MG CHEWABLE TABLETS ONE (13:19)
[2020-09-25 13:22] LABS: INR 1.58 (0.83-1.09); PROTHROMBIN TIME (PATIENT) 18.9 SEC (9.7-13.0)
[2020-09-25 13:24] LABS: ACTIVATED PTT 26.5 SECONDS (25.2-36.5)
[2020-09-25 13:36] LABS: CALCIUM 8.9 mg/dL (8.5-10.1)
[2020-09-25 13:37] LABS: ALBUMIN 3.6 g/dl (3.4-5.0); BLOOD UREA NITROGEN 19.9 mg/dL (7-18); MAGNESIUM 1.8 mg/dL (1.8-2.4)
[2020-09-25 13:40] LABS: CREATININE 0.8 mg/dL (0.55-1.3)
[2020-09-25 13:42] LABS: TOT PROT 7.2 g/dl (6.4-8.2)
[2020-09-25] MEDS ORDERED: FUROSEMIDE 40 MG TABLET (FP) PO ONE (15:17)
[2020-09-25] MEDS ORDERED: FUROSEMIDE 100 MG/10 ML INJECTABLE VIAL IVPB ONE (15:25)
[2020-09-25] MEDS ORDERED: FUROSEMIDE 40 MG/4 ML INJECTABLE VIAL ONE (15:28)
[2020-09-25] MEDS ORDERED: ALBUTEROL SO4 2.5/IPRATROPIUM 0.5 INH SOL 3 ML VIAL.NEB. NEB PRN (20:08)
[2020-09-25] MEDS ORDERED: MONTELUKAST NA 10 MG TABLET ONE (21:58)
[2020-09-25] MEDS ORDERED: INSULIN (LEVEMIR) 100 UNITS/ML UNITS SQ ONE (21:59)
[2020-09-25] MEDS ORDERED: ROSUVASTATIN CA 10 MG TABLET (FP) PO SCH (22:00)
[2020-09-25] MEDS: INSULIN (LEVEMIR) 100 UNITS/ML UNITS SQ SCH (22:11)
[2020-09-25] MEDS: SACUBITRIL/VALSARTAN 24 MG-26 MG TABLET PO SCH (22:11)
[2020-09-25] MEDS: BUDESONIDE/FORMETEROL FUMARATE 160/4.5 mcg INHALER IH SCH (22:12)
[2020-09-25] MEDS: MONTELUKAST NA 10 MG TABLET PO SCH (22:12)
[2020-09-25] MEDS: PROPYLTHIOURACIL 50 MG TABLET (UD) PO SCH (22:12)
[2020-09-26] MEDS: PROPYLTHIOURACIL 50 MG TABLET (UD) PO SCH ×3 (05:42→21:08)
[2020-09-26] MEDS: INSULIN (LEVEMIR) 100 UNITS/ML UNITS SQ SCH ×2 (06:43→21:09)
[2020-09-26 06:46] LABS: BASO % 0.3 % (0-2.0); EOS % 0.3 % (0-4.5); HEMATOCRIT 34.5 % (32.4-45.2); HEMOGLOBIN 11.1 GM/dL (10.7-15.3); LYMPH % 37.6 % (8-40); MCH 24.8 pg (25.7-33.7); MCHC 32.1 g/dl (32.0-36.0); MEAN CELL VOLUME 77.2 fl (80-96); MEAN PLT VOLUME 9.1 fl (7.5-11.1); MONO % 8.9 % (3.8-10.2); NEUT % 52.9 % (42.8-82.8); PLATELET COUNT 219 10^3/uL (134-434); RBC 4.47 M/mm3 (3.60-5.2); RDW 16.6 % (11.6-15.6); WHITE BLOOD COUNT 12.9 K/mm3 (4.0-10.0)
[2020-09-26 07:04] VITALS: BMI 28.6
[2020-09-26 07:12] LABS: CALCIUM 8.8 mg/dL (8.5-10.1)
[2020-09-26 07:13] LABS: ALBUMIN 3.3 g/dl (3.4-5.0); BLOOD UREA NITROGEN 20.5 mg/dL (7-18)
[2020-09-26 07:16] LABS: CREATININE 0.7 mg/dL (0.55-1.3)
[2020-09-26 07:17] LABS: BILIRUBIN,TOTAL 0.7 mg/dL (0.2-1); TOT PROT 6.7 g/dl (6.4-8.2)
[2020-09-26] MEDS: BUDESONIDE/FORMETEROL FUMARATE 160/4.5 mcg INHALER IH SCH ×2 (09:22→21:09)
[2020-09-26] MEDS: SACUBITRIL/VALSARTAN 24 MG-26 MG TABLET PO SCH ×2 (09:23→21:08)
[2020-09-26] MEDS: PANTOPRAZOLE 40 MG TABLET PO SCH (09:23)
[2020-09-26] MEDS: ENOXAPARIN NA (PORCINE) 40 MG/0.4 ML DISP.SYRIN SQ SCH (09:23)
[2020-09-26] MEDS ORDERED: FUROSEMIDE 40 MG/4 ML INJECTABLE VIAL IVPUSH SCH ×2 (10:00→18:00)
[2020-09-26] MEDS ORDERED: SPIRONOLACTONE 25 MG TABLET PO SCH (10:00)
[2020-09-26] MEDS ORDERED: ASPIRIN COATED 81 MG TABLET.EC PO SCH (10:00)
[2020-09-26] MEDS ORDERED: metoPROLOL SUCCINATE 25 MG TAB.SR.24H (FP) PO SCH (10:00)
[2020-09-26] MEDS ORDERED: MAGNESIUM OXIDE 400 MG TABLET (FP) PO ONE (12:04)
[2020-09-26] MEDS ORDERED: PT OWN MED DRAWER 7, Y5N ONE ×2 (12:57→21:02)
[2020-09-26] MEDS: SPIRONOLACTONE 25 MG TABLET PO SCH (13:08)
[2020-09-26] MEDS: FUROSEMIDE 40 MG/4 ML INJECTABLE VIAL IVPUSH SCH (14:52)
[2020-09-26] MEDS: MONTELUKAST NA 10 MG TABLET PO SCH (21:08)
[2020-09-27] MEDS: PROPYLTHIOURACIL 50 MG TABLET (UD) PO SCH ×3 (06:03→21:36)
[2020-09-27] MEDS: FUROSEMIDE 40 MG/4 ML INJECTABLE VIAL IVPUSH SCH ×2 (06:03→13:29)
[2020-09-27] MEDS: INSULIN (LEVEMIR) 100 UNITS/ML UNITS SQ SCH ×2 (06:03→21:36)
[2020-09-27 07:04] LABS: CALCIUM 8.2 mg/dL (8.5-10.1)
[2020-09-27 07:05] LABS: ALBUMIN 3.1 g/dl (3.4-5.0); BLOOD UREA NITROGEN 23.2 mg/dL (7-18); MAGNESIUM 1.9 mg/dL (1.8-2.4)
[2020-09-27 07:08] LABS: BILIRUBIN,DIRECT 0.3 mg/dL (0.0-0.2)
[2020-09-27 07:09] LABS: BILIRUBIN,TOTAL 0.8 mg/dL (0.2-1); TOT PROT 6.3 g/dl (6.4-8.2)
[2020-09-27 07:12] LABS: CREATININE 0.6 mg/dL (0.55-1.3)
[2020-09-27 09:20] LABS: BASO % 0.5 % (0-2.0); EOS % 0.9 % (0-4.5); HEMATOCRIT 35.3 % (32.4-45.2); HEMOGLOBIN 11.1 GM/dL (10.7-15.3); LYMPH % 42.4 % (8-40); MCH 24.2 pg (25.7-33.7); MCHC 31.3 g/dl (32.0-36.0); MEAN CELL VOLUME 77.1 fl (80-96); MEAN PLT VOLUME 9.3 fl (7.5-11.1); MONO % 9.2 % (3.8-10.2); PLATELET COUNT 215 10^3/uL (134-434); RBC 4.58 M/mm3 (3.60-5.2); RDW 16.3 % (11.6-15.6); WHITE BLOOD COUNT 11.1 K/mm3 (4.0-10.0)
[2020-09-27] MEDS: SACUBITRIL/VALSARTAN 24 MG-26 MG TABLET PO SCH ×2 (11:20→21:33)
[2020-09-27] MEDS: SPIRONOLACTONE 25 MG TABLET PO SCH (11:20)
[2020-09-27] MEDS: BUDESONIDE/FORMETEROL FUMARATE 160/4.5 mcg INHALER IH SCH ×2 (11:21→21:36)
[2020-09-27] MEDS: ENOXAPARIN NA (PORCINE) 40 MG/0.4 ML DISP.SYRIN SQ SCH (11:21)
[2020-09-27] MEDS: PANTOPRAZOLE 40 MG TABLET PO SCH (11:21)
[2020-09-27] MEDS ORDERED: PT OWN MED DRAWER 7, Y5N ONE ×3 (12:56→21:11)
[2020-09-27] MEDS: POLYETHYLENE GLYCOL (HEALTHYLAX) 3350 17 GM PACKET PO SCH (17:22)
[2020-09-27] MEDS ORDERED: INSULIN (LEVEMIR) 100 UNITS/ML UNITS SQ ONE (18:00)
[2020-09-27] MEDS: DOCUSATE SODIUM 100 MG CAPSULE (FP) PO SCH (21:33)
[2020-09-27] MEDS: MONTELUKAST NA 10 MG TABLET PO SCH (21:33)
[2020-09-27] MEDS: INSULIN SLIDING SCALE (NOVOLOG) 1 VIAL SQ SCH (21:36)
[2020-09-28] MEDS ORDERED: ACETAMINOPHEN 325 MG TABLET (FP) PO ONE (00:30)
[2020-09-28] MEDS: INSULIN (LEVEMIR) 100 UNITS/ML UNITS SQ SCH (06:24)
[2020-09-28] MEDS: FUROSEMIDE 40 MG/4 ML INJECTABLE VIAL IVPUSH SCH (06:24)
[2020-09-28] MEDS: PROPYLTHIOURACIL 50 MG TABLET (UD) PO SCH ×3 (06:24→21:55)
[2020-09-28] MEDS: INSULIN SLIDING SCALE (NOVOLOG) 1 VIAL SQ SCH ×4 (06:24→21:55)
[2020-09-28 07:15] LABS: HEMATOCRIT 35.4 % (32.4-45.2); HEMOGLOBIN 11.1 GM/dL (10.7-15.3); MCH 24.1 pg (25.7-33.7); MCHC 31.3 g/dl (32.0-36.0); MEAN CELL VOLUME 76.8 fl (80-96); MEAN PLT VOLUME 8.9 fl (7.5-11.1); PLATELET COUNT 222 10^3/uL (134-434); RBC 4.62 M/mm3 (3.60-5.2); RDW 16.2 % (11.6-15.6); WHITE BLOOD COUNT 11.5 K/mm3 (4.0-10.0)
[2020-09-28 07:33] LABS: CHLORIDE 104 mmol/L (98-107); SODIUM 140 mmol/L (136-145)
[2020-09-28 07:36] LABS: CALCIUM 8.4 mg/dL (8.5-10.1)
[2020-09-28 07:37] LABS: ANION GAP 7 MMOL/L (8-16); BLOOD UREA NITROGEN 21.5 mg/dL (7-18); CO2 29 mmol/L (21-32)
[2020-09-28 07:40] LABS: CREATININE 0.7 mg/dL (0.55-1.3); SGOT/AST 64 U/L (15-37); SGPT/ALT 204 U/L (13-61)
[2020-09-28 07:41] LABS: BILIRUBIN,TOTAL 0.7 mg/dL (0.2-1); TOT PROT 6.2 g/dl (6.4-8.2)
[2020-09-28 07:43] LABS: ALK PHOS 130 U/L (45-117)
[2020-09-28 07:47] LABS: GLUCOSE,RANDOM 46 mg/dL (74-106)
[2020-09-28] MEDS ORDERED: PT OWN MED DRAWER 7, Y5N ONE ×4 (10:13→21:10)
[2020-09-28] MEDS: POLYETHYLENE GLYCOL (HEALTHYLAX) 3350 17 GM PACKET PO SCH (10:40)
[2020-09-28] MEDS: PANTOPRAZOLE 40 MG TABLET PO SCH (10:40)
[2020-09-28] MEDS: SPIRONOLACTONE 25 MG TABLET PO SCH (10:40)
[2020-09-28] MEDS: ENOXAPARIN NA (PORCINE) 40 MG/0.4 ML DISP.SYRIN SQ SCH (10:40)
[2020-09-28] MEDS: BUDESONIDE/FORMETEROL FUMARATE 160/4.5 mcg INHALER IH SCH ×2 (10:41→21:56)
[2020-09-28] MEDS: SACUBITRIL/VALSARTAN 49 MG-51 MG TABLET PO SCH ×2 (11:44→21:55)
[2020-09-28] MEDS: FUROSEMIDE 40 MG TABLET (FP) PO SCH (15:26)
[2020-09-28] MEDS: DOCUSATE SODIUM 100 MG CAPSULE (FP) PO SCH (21:55)
[2020-09-28] MEDS: MONTELUKAST NA 10 MG TABLET PO SCH (21:56)
[2020-09-28] MEDS ORDERED: INSULIN (LEVEMIR) 100 UNITS/ML UNITS SQ SCH ×2 (22:00)
[2020-09-29] MEDS ORDERED: METHYL SALICYLATE/MENTHOL OINT 30 GM TUBE TP PRN (01:20)
[2020-09-29] MEDS ORDERED: ACETAMINOPHEN 325 MG TABLET (FP) PO ONE (01:30)
[2020-09-29] MEDS ORDERED: PT OWN MED DRAWER 7, Y5N ONE (06:08)
[2020-09-29] MEDS: FUROSEMIDE 40 MG TABLET (FP) PO SCH ×2 (06:35→14:17)
[2020-09-29] MEDS: PROPYLTHIOURACIL 50 MG TABLET (UD) PO SCH ×2 (06:35→14:17)
[2020-09-29] MEDS: INSULIN SLIDING SCALE (NOVOLOG) 1 VIAL SQ SCH ×2 (06:37→11:42)
[2020-09-29] MEDS ORDERED: INSULIN (LEVEMIR) 100 UNITS/ML UNITS SQ SCH (07:00)
[2020-09-29 07:43] LABS: ALBUMIN 3.1 g/dl (3.4-5.0); BLOOD UREA NITROGEN 19.3 mg/dL (7-18); CALCIUM 8.6 mg/dL (8.5-10.1)
[2020-09-29 07:46] LABS: CREATININE 0.7 mg/dL (0.55-1.3)
[2020-09-29 07:47] LABS: BILIRUBIN,TOTAL 0.5 mg/dL (0.2-1); TOT PROT 6.5 g/dl (6.4-8.2)
[2020-09-29] MEDS: SACUBITRIL/VALSARTAN 49 MG-51 MG TABLET PO SCH (09:34)
[2020-09-29] MEDS: SPIRONOLACTONE 25 MG TABLET PO SCH (09:34)
[2020-09-29] MEDS: ENOXAPARIN NA (PORCINE) 40 MG/0.4 ML DISP.SYRIN SQ SCH (09:34)
[2020-09-29] MEDS: POLYETHYLENE GLYCOL (HEALTHYLAX) 3350 17 GM PACKET PO SCH (09:34)
[2020-09-29] MEDS: PANTOPRAZOLE 40 MG TABLET PO SCH (09:34)
[2020-09-29] MEDS: BUDESONIDE/FORMETEROL FUMARATE 160/4.5 mcg INHALER IH SCH (09:35)
[2020-09-29 14:20] VITALS: BP 132/87; PULSE 96; TEMP 98
== END 2020-09-29 15:49 | disposition home health service (06) | DRG 292 ==
LOC: JER 11:36 → JERBED 14:17 → J4S 09-26 03:27
PROVIDERS: ADMIT Internal Medicine; ATTEND Internal Medicine
DX: I11.0 Hypertensive heart disease with heart failure (principal); I24.8 Other forms of acute ischemic heart disease; I50.23 Acute on chronic systolic (congestive) heart failure; I27.20 Pulmonary hypertension, unspecified; K21.9 Gastro-esophageal reflux disease without esophagitis; E11.65 Type 2 diabetes mellitus with hyperglycemia; I25.10 Atherosclerotic heart disease of native coronary artery without angina pectoris; E78.5 Hyperlipidemia, unspecified; E05.90 Thyrotoxicosis, unspecified without thyrotoxic crisis or storm; Z79.4 Long term (current) use of insulin; J45.909 Unspecified asthma, uncomplicated
CPT/HCPCS: 36415; 71045-TC-FY; 76705-TC; 80048; 80053; 80076; 82550; 82553; 82962; 83735; 83880; 84439; 84443; 84484; 85025; 85027; 85610; 85730; 93005; 93010; 93306-TC; 99285-25; C9803; U0003; U0005

== ENCOUNTER 2020-12-27 19:11 | Inpatient (IN) | payer OTHER ==
[2020-12-27 19:19] VITALS: BMI 29.1
[2020-12-27] MEDS ORDERED: FUROSEMIDE 40 MG/4 ML INJECTABLE VIAL IVPUSH ONE (20:22)
[2020-12-27] MEDS ORDERED: FUROSEMIDE 40 MG/4 ML INJECTABLE VIAL ONE (20:25)
[2020-12-27 20:39] LABS: HEMATOCRIT 36.7 % (32.4-45.2); HEMOGLOBIN 12.1 GM/dL (10.7-15.3); MCH 26.4 pg (25.7-33.7); MCHC 32.9 g/dl (32.0-36.0); MEAN CELL VOLUME 80.4 fl (80-96); PLATELET COUNT 147 10^3/uL (134-434); RBC 4.57 M/mm3 (3.60-5.2); RDW 19.6 % (11.6-15.6); WHITE BLOOD COUNT 12.8 K/mm3 (4.0-10.0)
[2020-12-27 20:45] LABS: INR 1.32 (0.83-1.09); PROTHROMBIN TIME (PATIENT) 16.3 SEC (9.7-13.0)
[2020-12-27 21:01] LABS: ALBUMIN 3.6 g/dl (3.4-5.0); BLOOD UREA NITROGEN 19.1 mg/dL (7-18); CALCIUM 8.9 mg/dL (8.5-10.1); MAGNESIUM 1.7 mg/dL (1.8-2.4)
[2020-12-27 21:05] LABS: CREATININE 0.9 mg/dL (0.55-1.3)
[2020-12-27 21:06] LABS: BILIRUBIN,TOTAL 1.1 mg/dL (0.2-1); TOT PROT 7.6 g/dl (6.4-8.2)
[2020-12-27 21:10] LABS: N-TERMINAL BNP 6769.5 pg/ml (5-125)
[2020-12-27] MEDS ORDERED: DOCUSATE SODIUM 100 MG CAPSULE (FP) PO PRN (22:36)
[2020-12-27] MEDS ORDERED: ALBUTEROL SO4 2.5/IPRATROPIUM 0.5 INH SOL 3 ML VIAL.NEB. NEB PRN (22:41)
[2020-12-28 06:41] LABS: BASO % 0.4 % (0-2.0); EOS % 1.6 % (0-4.5); HEMATOCRIT 34.8 % (32.4-45.2); HEMOGLOBIN 11.4 GM/dL (10.7-15.3); LYMPH % 35.2 % (8-40); MCH 26.7 pg (25.7-33.7); MCHC 32.8 g/dl (32.0-36.0); MEAN CELL VOLUME 81.3 fl (80-96); MEAN PLT VOLUME 10.3 fl (7.5-11.1); MONO % 9.3 % (3.8-10.2); NEUT % 53.5 % (42.8-82.8); PLATELET COUNT 136 10^3/uL (134-434); RBC 4.28 M/mm3 (3.60-5.2); RDW 20.3 % (11.6-15.6)
[2020-12-28] MEDS: FUROSEMIDE 40 MG/4 ML INJECTABLE VIAL IVPUSH SCH ×2 (06:50→13:10)
[2020-12-28] MEDS: PROPYLTHIOURACIL 50 MG TABLET (UD) PO SCH ×3 (06:50→21:48)
[2020-12-28] MEDS: INSULIN SLIDING SCALE (NOVOLOG) 1 VIAL SQ SCH ×4 (06:51→21:44)
[2020-12-28] MEDS ORDERED: PT OWN MED DRAWER 7, Y5N ONE ×5 (06:58→21:30)
[2020-12-28 07:02] LABS: ALBUMIN 3.2 g/dl (3.4-5.0); BLOOD UREA NITROGEN 16.4 mg/dL (7-18); CALCIUM 8.8 mg/dL (8.5-10.1)
[2020-12-28 07:05] LABS: CREATININE 0.8 mg/dL (0.55-1.3)
[2020-12-28 07:06] LABS: BILIRUBIN,TOTAL 0.8 mg/dL (0.2-1); TOT PROT 6.7 g/dl (6.4-8.2)
[2020-12-28] MEDS: INSULIN (LEVEMIR) 100 UNITS/ML UNITS SQ SCH ×2 (09:00→21:45)
[2020-12-28] MEDS ORDERED: BUDESONIDE/FORMETEROL FUMARATE 160/4.5 mcg INHALER IH SCH (10:00)
[2020-12-28] MEDS ORDERED: FLU VACC QS2021-22(6MOS UP)/PF 60 MCG/0.5 ML SYRINGE IM ONE ×2 (10:00→22:00)
[2020-12-28] MEDS: PANTOPRAZOLE 40 MG TABLET PO SCH (10:04)
[2020-12-28] MEDS: ASPIRIN COATED 81 MG TABLET.EC PO SCH (10:05)
[2020-12-28] MEDS: ENOXAPARIN NA (PORCINE) 40 MG/0.4 ML DISP.SYRIN SQ SCH (10:05)
[2020-12-28] MEDS: SPIRONOLACTONE 25 MG TABLET PO SCH (10:05)
[2020-12-28] MEDS: SACUBITRIL/VALSARTAN 49 MG-51 MG TABLET PO SCH ×2 (11:35→21:48)
[2020-12-28] MEDS: BUDESONIDE/FORMETEROL FUMARATE 160/4.5 mcg INHALER IH SCH ×2 (11:36→21:49)
[2020-12-28] MEDS ORDERED: KETOROLAC TROMETHAMINE 30 MG/1 ML VIAL IVPUSH ONE (15:40)
[2020-12-28] MEDS: ACETAMINOPHEN 325 MG TABLET (FP) PO PRN (16:01)
[2020-12-28] MEDS ORDERED: POTASSIUM CHLORIDE TABS 20 MEQ TABLET.ER (FP) PO ONE (16:05)
[2020-12-28] MEDS ORDERED: MAGNESIUM OXIDE 400 MG TABLET (FP) PO ONE (16:06)
[2020-12-28] MEDS: ROSUVASTATIN CA 10 MG TABLET (FP) PO SCH (21:48)
[2020-12-29] MEDS ORDERED: PT OWN MED DRAWER 7, Y5N ONE ×5 (06:21→21:56)
[2020-12-29] MEDS: PROPYLTHIOURACIL 50 MG TABLET (UD) PO SCH ×3 (06:40→21:47)
[2020-12-29] MEDS: FUROSEMIDE 40 MG/4 ML INJECTABLE VIAL IVPUSH SCH ×2 (06:40→14:54)
[2020-12-29] MEDS: INSULIN (LEVEMIR) 100 UNITS/ML UNITS SQ SCH ×2 (06:40→21:45)
[2020-12-29] MEDS: INSULIN SLIDING SCALE (NOVOLOG) 1 VIAL SQ SCH ×4 (06:41→21:47)
[2020-12-29] MEDS: ENOXAPARIN NA (PORCINE) 40 MG/0.4 ML DISP.SYRIN SQ SCH (09:58)
[2020-12-29] MEDS: SACUBITRIL/VALSARTAN 49 MG-51 MG TABLET PO SCH ×2 (09:59→21:45)
[2020-12-29] MEDS: PANTOPRAZOLE 40 MG TABLET PO SCH (09:59)
[2020-12-29] MEDS: ASPIRIN COATED 81 MG TABLET.EC PO SCH (09:59)
[2020-12-29] MEDS: SPIRONOLACTONE 25 MG TABLET PO SCH (09:59)
[2020-12-29] MEDS: BUDESONIDE/FORMETEROL FUMARATE 160/4.5 mcg INHALER IH SCH ×2 (09:59→21:49)
[2020-12-29] MEDS: ROSUVASTATIN CA 10 MG TABLET (FP) PO SCH (21:44)
[2020-12-29] MEDS: ACETAMINOPHEN 325 MG TABLET (FP) PO PRN (21:47)
[2020-12-30] MEDS ORDERED: PT OWN MED DRAWER 7, Y5N ONE ×4 (05:48→21:17)
[2020-12-30] MEDS: FUROSEMIDE 40 MG/4 ML INJECTABLE VIAL IVPUSH SCH ×2 (05:52→13:21)
[2020-12-30] MEDS: PROPYLTHIOURACIL 50 MG TABLET (UD) PO SCH ×3 (05:53→21:25)
[2020-12-30] MEDS: INSULIN SLIDING SCALE (NOVOLOG) 1 VIAL SQ SCH ×4 (06:03→21:24)
[2020-12-30] MEDS: INSULIN (LEVEMIR) 100 UNITS/ML UNITS SQ SCH ×2 (06:03→21:24)
[2020-12-30] MEDS: ASPIRIN COATED 81 MG TABLET.EC PO SCH (09:31)
[2020-12-30] MEDS: PANTOPRAZOLE 40 MG TABLET PO SCH (09:31)
[2020-12-30] MEDS: SPIRONOLACTONE 25 MG TABLET PO SCH (09:31)
[2020-12-30] MEDS: ENOXAPARIN NA (PORCINE) 40 MG/0.4 ML DISP.SYRIN SQ SCH (09:31)
[2020-12-30] MEDS: SACUBITRIL/VALSARTAN 49 MG-51 MG TABLET PO SCH ×2 (09:31→21:29)
[2020-12-30] MEDS: BUDESONIDE/FORMETEROL FUMARATE 160/4.5 mcg INHALER IH SCH ×2 (09:32→21:29)
[2020-12-30] MEDS: ROSUVASTATIN CA 10 MG TABLET (FP) PO SCH (21:26)
[2020-12-30] MEDS: ACETAMINOPHEN 325 MG TABLET (FP) PO PRN (21:27)
[2020-12-31] MEDS ORDERED: PT OWN MED DRAWER 7, Y5N ONE ×4 (06:15→21:26)
[2020-12-31] MEDS: FUROSEMIDE 40 MG/4 ML INJECTABLE VIAL IVPUSH SCH ×2 (06:23→14:41)
[2020-12-31] MEDS: PROPYLTHIOURACIL 50 MG TABLET (UD) PO SCH ×3 (06:26→21:29)
[2020-12-31] MEDS: INSULIN SLIDING SCALE (NOVOLOG) 1 VIAL SQ SCH ×4 (06:27→21:33)
[2020-12-31] MEDS: INSULIN (LEVEMIR) 100 UNITS/ML UNITS SQ SCH ×2 (06:28→22:16)
[2020-12-31] MEDS: ENOXAPARIN NA (PORCINE) 40 MG/0.4 ML DISP.SYRIN SQ SCH (09:12)
[2020-12-31] MEDS: BUDESONIDE/FORMETEROL FUMARATE 160/4.5 mcg INHALER IH SCH ×2 (09:15→21:30)
[2020-12-31] MEDS: ASPIRIN COATED 81 MG TABLET.EC PO SCH (09:15)
[2020-12-31] MEDS: SPIRONOLACTONE 25 MG TABLET PO SCH (09:15)
[2020-12-31] MEDS: PANTOPRAZOLE 40 MG TABLET PO SCH (09:16)
[2020-12-31] MEDS: SACUBITRIL/VALSARTAN 49 MG-51 MG TABLET PO SCH ×2 (09:17→22:16)
[2020-12-31 09:49] LABS: BASO % 0.5 % (0-2.0); EOS % 3.4 % (0-4.5); HEMATOCRIT 44.9 % (32.4-45.2); HEMOGLOBIN 14.8 GM/dL (10.7-15.3); LYMPH % 39.7 % (8-40); MCHC 32.9 g/dl (32.0-36.0); MEAN CELL VOLUME 82.1 fl (80-96); MEAN PLT VOLUME 10.3 fl (7.5-11.1); MONO % 10.9 % (3.8-10.2); NEUT % 45.5 % (42.8-82.8); PLATELET COUNT 190 10^3/uL (134-434); RBC 5.47 M/mm3 (3.60-5.2); RDW 19.7 % (11.6-15.6)
[2020-12-31 10:26] LABS: CALCIUM 8.7 mg/dL (8.5-10.1)
[2020-12-31 10:27] LABS: ALBUMIN 3.8 g/dl (3.4-5.0); BLOOD UREA NITROGEN 23.4 mg/dL (7-18); MAGNESIUM 1.9 mg/dL (1.8-2.4)
[2020-12-31 10:32] LABS: BILIRUBIN,TOTAL 0.7 mg/dL (0.2-1); CREATININE 0.9 mg/dL (0.55-1.3); TOT PROT 8.5 g/dl (6.4-8.2)
[2020-12-31] MEDS: ACETAMINOPHEN 325 MG TABLET (FP) PO PRN (20:13)
[2020-12-31] MEDS: ROSUVASTATIN CA 10 MG TABLET (FP) PO SCH (21:29)
[2020-12-31] MEDS ORDERED: morphine SULFATE 4 MG/ML VIAL IVPUSH ONE (23:45)
[2021-01-01] MEDS: ACETAMINOPHEN 325 MG TABLET (FP) PO PRN ×3 (01:57→16:27)
[2021-01-01] MEDS: PROPYLTHIOURACIL 50 MG TABLET (UD) PO SCH ×3 (06:00→21:11)
[2021-01-01] MEDS: FUROSEMIDE 40 MG/4 ML INJECTABLE VIAL IVPUSH SCH ×2 (06:00→13:36)
[2021-01-01] MEDS: INSULIN (LEVEMIR) 100 UNITS/ML UNITS SQ SCH ×2 (06:03→21:16)
[2021-01-01] MEDS: INSULIN SLIDING SCALE (NOVOLOG) 1 VIAL SQ SCH ×4 (06:04→21:16)
[2021-01-01] MEDS: ENOXAPARIN NA (PORCINE) 40 MG/0.4 ML DISP.SYRIN SQ SCH (09:39)
[2021-01-01] MEDS: PANTOPRAZOLE 40 MG TABLET PO SCH (09:40)
[2021-01-01] MEDS: SPIRONOLACTONE 25 MG TABLET PO SCH (09:40)
[2021-01-01] MEDS: ASPIRIN COATED 81 MG TABLET.EC PO SCH (09:40)
[2021-01-01] MEDS: SACUBITRIL/VALSARTAN 49 MG-51 MG TABLET PO SCH ×2 (09:42→21:10)
[2021-01-01] MEDS: BUDESONIDE/FORMETEROL FUMARATE 160/4.5 mcg INHALER IH SCH ×2 (09:42→21:21)
[2021-01-01] MEDS ORDERED: CYCLOBENZAPRINE HCL 10 MG TABLET (FP) PO ONE (20:15)
[2021-01-01] MEDS ORDERED: PT OWN MED DRAWER 7, Y5N ONE (21:01)
[2021-01-01] MEDS: ROSUVASTATIN CA 10 MG TABLET (FP) PO SCH (21:10)
[2021-01-02] MEDS: FUROSEMIDE 40 MG/4 ML INJECTABLE VIAL IVPUSH SCH ×2 (06:15→16:08)
[2021-01-02] MEDS: PROPYLTHIOURACIL 50 MG TABLET (UD) PO SCH ×3 (06:16→21:41)
[2021-01-02] MEDS: INSULIN (LEVEMIR) 100 UNITS/ML UNITS SQ SCH ×2 (06:23→21:44)
[2021-01-02] MEDS: INSULIN SLIDING SCALE (NOVOLOG) 1 VIAL SQ SCH ×4 (06:23→21:42)
[2021-01-02] MEDS: ENOXAPARIN NA (PORCINE) 40 MG/0.4 ML DISP.SYRIN SQ SCH (09:17)
[2021-01-02] MEDS: SPIRONOLACTONE 25 MG TABLET PO SCH (09:17)
[2021-01-02] MEDS: PANTOPRAZOLE 40 MG TABLET PO SCH (09:17)
[2021-01-02] MEDS: ASPIRIN COATED 81 MG TABLET.EC PO SCH (09:17)
[2021-01-02] MEDS: BUDESONIDE/FORMETEROL FUMARATE 160/4.5 mcg INHALER IH SCH ×2 (09:18→21:41)
[2021-01-02] MEDS: SACUBITRIL/VALSARTAN 49 MG-51 MG TABLET PO SCH ×2 (09:18→21:41)
[2021-01-02] MEDS ORDERED: FUROSEMIDE 40 MG TABLET (FP) PO SCH (14:00)
[2021-01-02] MEDS ORDERED: PT OWN MED DRAWER 7, Y5N ONE ×2 (19:50→21:36)
[2021-01-02] MEDS: ROSUVASTATIN CA 10 MG TABLET (FP) PO SCH (21:41)
[2021-01-02] MEDS: ACETAMINOPHEN 325 MG TABLET (FP) PO PRN (21:44)
[2021-01-03] MEDS ORDERED: FUROSEMIDE 40 MG TABLET (FP) PO SCH (06:00)
[2021-01-03] MEDS ORDERED: PT OWN MED DRAWER 7, Y5N ONE (06:39)
[2021-01-03] MEDS: PROPYLTHIOURACIL 50 MG TABLET (UD) PO SCH (06:46)
[2021-01-03] MEDS: INSULIN (LEVEMIR) 100 UNITS/ML UNITS SQ SCH (06:47)
[2021-01-03] MEDS: INSULIN SLIDING SCALE (NOVOLOG) 1 VIAL SQ SCH ×2 (06:47→11:07)
[2021-01-03 09:00] VITALS: BP 125/75; PULSE 81; TEMP 97.9
[2021-01-03] MEDS: SPIRONOLACTONE 25 MG TABLET PO SCH (09:02)
[2021-01-03] MEDS: SACUBITRIL/VALSARTAN 49 MG-51 MG TABLET PO SCH (09:02)
[2021-01-03] MEDS: PANTOPRAZOLE 40 MG TABLET PO SCH (09:02)
[2021-01-03] MEDS: ENOXAPARIN NA (PORCINE) 40 MG/0.4 ML DISP.SYRIN SQ SCH (09:03)
[2021-01-03] MEDS: ASPIRIN COATED 81 MG TABLET.EC PO SCH (09:03)
[2021-01-03] MEDS: BUDESONIDE/FORMETEROL FUMARATE 160/4.5 mcg INHALER IH SCH (09:03)
== END 2021-01-03 13:29 | disposition home or self-care (01) | DRG 291 ==
LOC: JER 19:11 → JERBED 19:48 → J4S 12-28 00:56
PROVIDERS: ADMIT Internal Medicine; ATTEND Internal Medicine
DX: I11.0 Hypertensive heart disease with heart failure (principal); I50.23 Acute on chronic systolic (congestive) heart failure; I24.8 Other forms of acute ischemic heart disease; I42.8 Other cardiomyopathies; J45.909 Unspecified asthma, uncomplicated; E11.9 Type 2 diabetes mellitus without complications; E78.00 Pure hypercholesterolemia, unspecified; K21.9 Gastro-esophageal reflux disease without esophagitis; E05.90 Thyrotoxicosis, unspecified without thyrotoxic crisis or storm; I25.10 Atherosclerotic heart disease of native coronary artery without angina pectoris; R79.89 Other specified abnormal findings of blood chemistry; K76.1 Chronic passive congestion of liver; Z95.810 Presence of automatic (implantable) cardiac defibrillator; Z79.4 Long term (current) use of insulin
CPT/HCPCS: 36415; 71045-TC-FY; 80048; 80053; 82550; 82553; 82962; 83735; 83880; 84443; 84484; 85025; 85027; 85610; 90686; 93005; 93010; 99285-25; C9803; G0008; U0003; U0005

== ENCOUNTER 2021-07-11 06:24 | Emergency (ER) | payer OTHER ==
[2021-07-11 06:31] VITALS: BMI 31.1
[2021-07-11] MEDS ORDERED: LACTATED RINGERS SOLUTION 1000 ML INFUS.BAG IV ONE (06:32)
[2021-07-11] MEDS ORDERED: MECLIZINE HCL 25 MG TABLET (FP) PO ONE ×2 (06:32→09:49)
[2021-07-11] MEDS ORDERED: ONDANSETRON 4 MG/2 ML VIAL IVPUSH ONE (06:32)
[2021-07-11] MEDS ORDERED: ONDANSETRON 4 MG/2 ML VIAL ONE ×2 (06:48→06:57)
[2021-07-11] MEDS ORDERED: ACETAMINOPHEN 1000 MG/100 ML BAG IVPB ONE (07:22)
[2021-07-11] MEDS ORDERED: MECLIZINE HCL 25 MG TABLET (FP) ONE ×2 (08:14→10:01)
[2021-07-11] MEDS ORDERED: ACETAMINOPHEN INJECTION 100 ML IVPB ONE (08:15)
[2021-07-11 08:25] LABS: BASO % 0.5 % (0-2.0); EOS % 2.1 % (0-4.5); HEMATOCRIT 38.7 % (32.4-45.2); HEMOGLOBIN 13.2 GM/dL (10.7-15.3); LYMPH % 31.9 % (8-40); MCH 28.4 pg (25.7-33.7); MEAN CELL VOLUME 83.4 fl (80-96); NEUT % 57.5 % (42.8-82.8); PLATELET COUNT 131 10^3/uL (134-434); RBC 4.64 M/mm3 (3.60-5.2); RDW 12.7 % (11.6-15.6); WHITE BLOOD COUNT 7.4 K/mm3 (4.0-10.0)
[2021-07-11 08:28] VITALS: TEMP 98.1
[2021-07-11 08:47] LABS: CALCIUM 9.6 mg/dL (8.5-10.1)
[2021-07-11 08:48] LABS: ALBUMIN 4.3 g/dl (3.4-5.0); BLOOD UREA NITROGEN 26.3 mg/dL (7-18); MAGNESIUM 1.9 mg/dL (1.8-2.4)
[2021-07-11 08:51] LABS: CREATININE 1.2 mg/dL (0.55-1.3)
[2021-07-11 08:52] LABS: BILIRUBIN,TOTAL 0.3 mg/dL (0.2-1); TOT PROT 8.2 g/dl (6.4-8.2)
[2021-07-11] MEDS ORDERED: diazePAM CARPU-JECT 10 MG/2 ML DISP.SYRIN IVPUSH ONE (09:10)
[2021-07-11 09:20] VITALS: BP 133/78; PULSE 78
[2021-07-11] MEDS ORDERED: diazePAM CARPU-JECT 10 MG/2 ML DISP.SYRIN ONE (09:33)
== END 2021-07-11 11:43 | disposition home or self-care (01) ==
LOC: JER 06:24
PROC: 3E0333Z Introduction of Anti-inflammatory into Peripheral Vein, Percutaneous Approach (ICD-10-PCS; principal; 2021-07-11)
PROC: 3E033NZ Introduction of Analgesics, Hypnotics, Sedatives into Peripheral Vein, Percutaneous Approach (ICD-10-PCS; 2021-07-11)
PROC: 3E033GC Introduction of Other Therapeutic Substance into Peripheral Vein, Percutaneous Approach (ICD-10-PCS; 2021-07-11)
DX: R55 Syncope and collapse (principal)
CPT/HCPCS: 36415; 70450-TC; 80053; 80061; 83735; 84439; 84443; 84703; 85025; 93005; 93010; 99285-25

== ENCOUNTER 2021-08-03 04:07 | Day surgery (SDC) | payer OTHER ==
[2021-07-31 10:41] VITALS: BMI 27.6
[2021-08-03] MEDS ORDERED: LIDOCAINE HCL 1%, 10 MG/ML (20ML VIAL) ONE (12:29)
[2021-08-03] MEDS ORDERED: HEPARIN NA (PORCINE) 5,000 UNITS/ML 1ML VIAL ONE ×2 (12:29→13:00)
[2021-08-03] MEDS ORDERED: LIDOCAINE HCL 1%, 10 MG/ML (50 mL VIAL) NR ONE ×2 (12:39→13:23)
[2021-08-03] MEDS ORDERED: HEPARIN NA (PORCINE) 5,000 UNITS/ML 1ML VIAL SQ ONE ×2 (12:46→13:25)
[2021-08-03] MEDS ORDERED: PROPOFOL 20 ML ONE ×2 (13:00)
[2021-08-03] MEDS ORDERED: LIDOCAINE HCL/PF 2% SDV 5ML VIAL ONE (13:00)
[2021-08-03] MEDS ORDERED: MIDAZOLAM HCL 2 MG/2 ML SINGLE DOSE VIAL ONE (13:00)
[2021-08-03] MEDS ORDERED: CLINDAMYCIN 600 MG PREMIX BAG IVPB ONE (13:15)
[2021-08-03] MEDS ORDERED: CLINDAMYCIN PHOSPHATE 600 MG/4 ML VIAL ONE (13:15)
[2021-08-03] MEDS ORDERED: CLOPIDOGREL BISULFATE 75 MG TABLET (FP) PO ONE ×2 (14:11→16:00)
[2021-08-03] MEDS ORDERED: ONDANSETRON 4 MG/2 ML VIAL IVPUSH PRN (14:12)
[2021-08-03] MEDS ORDERED: oxyCODONE HCL 5 MG TABLET PO PRN (14:12)
[2021-08-03] MEDS ORDERED: LACTATED RINGERS SOLUTION 1,000 ML IV SCH (14:15)
[2021-08-03] MEDS ORDERED: CLOPIDOGREL BISULFATE 75 MG TABLET (FP) ONE (15:17)
[2021-08-03 17:57] VITALS: BP 154/79; PULSE 72; TEMP 97.8
== END 2021-08-03 18:15 | disposition home or self-care (01) ==
LOC: JASU-SURG 04:07
PROVIDERS: ATTEND Surgery Vascular Surgery
PROC: 047K3D1 Dilation of Right Femoral Artery with Intraluminal Device, using Drug-Coated Balloon, Percutaneous Approach (ICD-10-PCS; principal; 2021-08-03 13:00)
DX: I70.211 Atherosclerosis of native arteries of extremities with intermittent claudication, right leg (principal)
CPT/HCPCS: 37227; C1877; C2623; 76000-TC-FY; 82962; 94760; J1644

== ENCOUNTER 2022-06-11 14:53 | Observation (INO) | payer OTHER ==
[2022-06-11] MEDS ORDERED: KETOROLAC TROMETHAMINE 15 MG/ML VIAL IM ONE (18:30)
[2022-06-11] MEDS ORDERED: KETOROLAC TROMETHAMINE 15 MG/ML VIAL ONE (18:44)
[2022-06-11 19:11] LABS: BASO % 0.5 % (0-2.0); HEMATOCRIT 40.5 % (32.4-45.2); HEMOGLOBIN 13.5 GM/dL (10.7-15.3); LYMPH % 37.6 % (8-40); MCH 28.4 pg (25.7-33.7); MCHC 33.5 g/dl (32.0-36.0); MEAN CELL VOLUME 84.9 fl (80-96); MEAN PLT VOLUME 9.4 fl (7.5-11.1); MONO % 9.7 % (3.8-10.2); NEUT % 51.2 % (42.8-82.8); PLATELET COUNT 194 10^3/uL (134-434); RBC 4.76 M/mm3 (3.60-5.2); WHITE BLOOD COUNT 10.8 K/mm3 (4.0-10.0)
[2022-06-11 19:19] LABS: INR 1.04 (0.83-1.09); PROTHROMBIN TIME (PATIENT) 12.1 SEC (9.7-13.0)
[2022-06-11 19:21] LABS: ACTIVATED PTT 29.7 SECONDS (25.2-36.5)
[2022-06-11 19:31] LABS: CALCIUM 9.4 mg/dL (8.5-10.1)
[2022-06-11 19:32] LABS: ALBUMIN 3.9 g/dl (3.4-5.0); BLOOD UREA NITROGEN 18.5 mg/dL (7-18)
[2022-06-11 19:35] LABS: CREATININE 0.8 mg/dL (0.55-1.3)
[2022-06-11 19:36] LABS: BILIRUBIN,TOTAL 0.2 mg/dL (0.2-1)
[2022-06-11] MEDS ORDERED: morphine CARPU-JECT 2 MG/1 ML DISP.SYRIN IVPUSH ONE (23:43)
[2022-06-12] MEDS ORDERED: HYDROmorphone HCl 2 MG/ML VIAL IVPUSH ONE (01:45)
[2022-06-12] MEDS ORDERED: HYDROmorphone HCl 2 MG/ML VIAL ONE (01:53)
[2022-06-12] MEDS ORDERED: INSULIN SLIDING SCALE (NOVOLOG) 1 VIAL SQ SCH (07:00)
[2022-06-12] MEDS ORDERED: ASPIRIN COATED 81 MG TABLET.EC ONE (08:03)
[2022-06-12] MEDS ORDERED: CLOPIDOGREL BISULFATE 75 MG TABLET (FP) ONE (08:03)
[2022-06-12] MEDS ORDERED: MONTELUKAST NA 10 MG TABLET ONE (08:04)
[2022-06-12] MEDS ORDERED: ENOXAPARIN NA (PORCINE) 40 MG/0.4 ML DISP.SYRIN SQ ONE (08:04)
[2022-06-12] MEDS: ENOXAPARIN NA (PORCINE) 40 MG/0.4 ML DISP.SYRIN SQ SCH (08:06)
[2022-06-12] MEDS: MONTELUKAST NA 10 MG TABLET PO SCH (08:06)
[2022-06-12] MEDS: PANTOPRAZOLE 40 MG TABLET PO SCH (08:06)
[2022-06-12] MEDS: CLOPIDOGREL BISULFATE 75 MG TABLET (FP) PO SCH (08:06)
[2022-06-12] MEDS: ASPIRIN COATED 81 MG TABLET.EC PO SCH ×2 (08:06→21:57)
[2022-06-12] MEDS ORDERED: PANTOPRAZOLE 40 MG TABLET PO ONE (08:08)
[2022-06-12] MEDS: INSULIN SLIDING SCALE (NOVOLOG) 1 VIAL SQ SCH ×4 (08:17→22:00)
[2022-06-12 12:47] VITALS: RESP 18; BMI 25.9
[2022-06-12] MEDS: KETOROLAC TROMETHAMINE 30 MG/1 ML VIAL IVPUSH PRN ×2 (14:46→21:56)
[2022-06-12] MEDS: PROPYLTHIOURACIL 50 MG TABLET (UD) PO SCH ×3 (19:29→21:57)
[2022-06-12] MEDS: ROSUVASTATIN CA 10 MG TABLET PO SCH (21:57)
[2022-06-12] MEDS: SACUBITRIL/VALSARTAN 97 MG-103 MG TABLET PO SCH (21:57)
[2022-06-13] MEDS: KETOROLAC TROMETHAMINE 30 MG/1 ML VIAL IVPUSH PRN ×2 (05:30→11:02)
[2022-06-13] MEDS: PROPYLTHIOURACIL 50 MG TABLET (UD) PO SCH ×3 (05:31→22:14)
[2022-06-13] MEDS: INSULIN SLIDING SCALE (NOVOLOG) 1 VIAL SQ SCH ×4 (06:22→22:15)
[2022-06-13 08:21] LABS: BASO % 0.5 % (0-2.0); EOS % 1.9 % (0-4.5); HEMATOCRIT 37.5 % (32.4-45.2); HEMOGLOBIN 12.8 GM/dL (10.7-15.3); MCH 28.8 pg (25.7-33.7); MCHC 34.2 g/dl (32.0-36.0); MEAN CELL VOLUME 84.3 fl (80-96); MEAN PLT VOLUME 9.6 fl (7.5-11.1); MONO % 9.2 % (3.8-10.2); NEUT % 56.4 % (42.8-82.8); PLATELET COUNT 159 10^3/uL (134-434); RBC 4.45 M/mm3 (3.60-5.2); RDW 13.3 % (11.6-15.6); WHITE BLOOD COUNT 6.9 K/mm3 (4.0-10.0)
[2022-06-13 08:43] LABS: ALBUMIN 3.6 g/dl (3.4-5.0); BLOOD UREA NITROGEN 27.4 mg/dL (7-18); CALCIUM 9.1 mg/dL (8.5-10.1)
[2022-06-13 08:44] LABS: MAGNESIUM 2.2 mg/dL (1.8-2.4)
[2022-06-13 08:47] LABS: PHOSPHOROUS 3.8 mg/dL (2.5-4.9)
[2022-06-13 08:48] LABS: BILIRUBIN,TOTAL 0.4 mg/dL (0.2-1); CREATININE 0.8 mg/dL (0.55-1.3); TOT PROT 7.2 g/dl (6.4-8.2)
[2022-06-13] MEDS: MONTELUKAST NA 10 MG TABLET PO SCH (10:48)
[2022-06-13] MEDS: ENOXAPARIN NA (PORCINE) 40 MG/0.4 ML DISP.SYRIN SQ SCH (10:48)
[2022-06-13] MEDS: PANTOPRAZOLE 40 MG TABLET PO SCH (10:49)
[2022-06-13] MEDS: SPIRONOLACTONE 25 MG TABLET PO SCH (10:49)
[2022-06-13] MEDS: ASPIRIN COATED 81 MG TABLET.EC PO SCH ×2 (10:49→22:16)
[2022-06-13] MEDS: CLOPIDOGREL BISULFATE 75 MG TABLET (FP) PO SCH (10:49)
[2022-06-13] MEDS: SACUBITRIL/VALSARTAN 97 MG-103 MG TABLET PO SCH ×2 (10:49→22:16)
[2022-06-13] MEDS ORDERED: INSULIN (NOVOLOG) ASPART 100 UNITS/ML 10ML VIAL ONE (16:49)
[2022-06-13] MEDS: PRAMIPEXOLE DIHYDROCHLORIDE 0.25 MG TABLET PO SCH (22:14)
[2022-06-13] MEDS: ROSUVASTATIN CA 10 MG TABLET PO SCH (22:14)
[2022-06-14] MEDS: PROPYLTHIOURACIL 50 MG TABLET (UD) PO SCH ×3 (06:24→22:53)
[2022-06-14] MEDS: INSULIN SLIDING SCALE (NOVOLOG) 1 VIAL SQ SCH ×4 (06:27→22:16)
[2022-06-14 07:42] LABS: BASO % 0.5 % (0-2.0); EOS % 2.2 % (0-4.5); HEMATOCRIT 38.7 % (32.4-45.2); HEMOGLOBIN 12.9 GM/dL (10.7-15.3); LYMPH % 36.6 % (8-40); MCH 28.3 pg (25.7-33.7); MCHC 33.4 g/dl (32.0-36.0); MEAN CELL VOLUME 84.7 fl (80-96); MEAN PLT VOLUME 9.8 fl (7.5-11.1); MONO % 10.2 % (3.8-10.2); NEUT % 50.5 % (42.8-82.8); PLATELET COUNT 170 10^3/uL (134-434); RBC 4.57 M/mm3 (3.60-5.2); RDW 12.9 % (11.6-15.6); WHITE BLOOD COUNT 7.9 K/mm3 (4.0-10.0)
[2022-06-14 07:56] LABS: ALBUMIN 3.8 g/dl (3.4-5.0); BLOOD UREA NITROGEN 26.5 mg/dL (7-18); CALCIUM 8.9 mg/dL (8.5-10.1)
[2022-06-14 08:00] LABS: CREATININE 0.8 mg/dL (0.55-1.3)
[2022-06-14 08:01] LABS: BILIRUBIN,TOTAL 0.5 mg/dL (0.2-1); TOT PROT 7.5 g/dl (6.4-8.2)
[2022-06-14] MEDS: ASPIRIN COATED 81 MG TABLET.EC PO SCH ×2 (10:58→22:14)
[2022-06-14] MEDS: PANTOPRAZOLE 40 MG TABLET PO SCH (10:58)
[2022-06-14] MEDS: PRAMIPEXOLE DIHYDROCHLORIDE 0.25 MG TABLET PO SCH ×2 (10:58→22:15)
[2022-06-14] MEDS: CLOPIDOGREL BISULFATE 75 MG TABLET (FP) PO SCH (10:58)
[2022-06-14] MEDS: SPIRONOLACTONE 25 MG TABLET PO SCH (10:58)
[2022-06-14] MEDS: ENOXAPARIN NA (PORCINE) 40 MG/0.4 ML DISP.SYRIN SQ SCH (10:58)
[2022-06-14] MEDS: MONTELUKAST NA 10 MG TABLET PO SCH (10:58)
[2022-06-14] MEDS: SACUBITRIL/VALSARTAN 97 MG-103 MG TABLET PO SCH ×2 (10:58→22:53)
[2022-06-14] MEDS: KETOROLAC TROMETHAMINE 30 MG/1 ML VIAL IVPUSH PRN ×2 (12:59→20:23)
[2022-06-14] MEDS: ROSUVASTATIN CA 10 MG TABLET PO SCH (22:14)
[2022-06-14] MEDS: GABAPENTIN 100 MG CAPSULE PO SCH (22:15)
[2022-06-15] MEDS: KETOROLAC TROMETHAMINE 30 MG/1 ML VIAL IVPUSH PRN ×2 (02:49→09:00)
[2022-06-15] MEDS: GABAPENTIN 100 MG CAPSULE PO SCH (06:38)
[2022-06-15] MEDS: PROPYLTHIOURACIL 50 MG TABLET (UD) PO SCH (06:38)
[2022-06-15] MEDS: INSULIN SLIDING SCALE (NOVOLOG) 1 VIAL SQ SCH ×2 (06:38→11:16)
[2022-06-15] MEDS: SACUBITRIL/VALSARTAN 97 MG-103 MG TABLET PO SCH (10:57)
[2022-06-15] MEDS: ENOXAPARIN NA (PORCINE) 40 MG/0.4 ML DISP.SYRIN SQ SCH (10:57)
[2022-06-15] MEDS: ASPIRIN COATED 81 MG TABLET.EC PO SCH (10:58)
[2022-06-15] MEDS: PRAMIPEXOLE DIHYDROCHLORIDE 0.25 MG TABLET PO SCH (10:58)
[2022-06-15] MEDS: MONTELUKAST NA 10 MG TABLET PO SCH (10:58)
[2022-06-15] MEDS: PANTOPRAZOLE 40 MG TABLET PO SCH (10:58)
[2022-06-15] MEDS: CLOPIDOGREL BISULFATE 75 MG TABLET (FP) PO SCH (10:58)
[2022-06-15] MEDS: SPIRONOLACTONE 25 MG TABLET PO SCH (10:58)
[2022-06-15 11:58] VITALS: BP 153/87; PULSE 65; TEMP 98.3
== END 2022-06-15 14:02 | disposition home or self-care (01) ==
LOC: JER 14:53 → INTOOBSV 06-12 00:36 → UNDOADMOB 06-12 00:36 → JERBED 06-12 00:36 → J7W 06-12 09:54
PROVIDERS: ADMIT Internal Medicine; ATTEND Internal Medicine
PROC: 3E023GC Introduction of Other Therapeutic Substance into Muscle, Percutaneous Approach (ICD-10-PCS; principal; 2022-06-12)
PROC: 3E033NZ Introduction of Analgesics, Hypnotics, Sedatives into Peripheral Vein, Percutaneous Approach (ICD-10-PCS; 2022-06-12)
PROC: 3E013VG Introduction of Insulin into Subcutaneous Tissue, Percutaneous Approach (ICD-10-PCS; 2022-06-12)
PROC: 3E0333Z Introduction of Anti-inflammatory into Peripheral Vein, Percutaneous Approach (ICD-10-PCS; 2022-06-12)
PROC: 3E033NZ Introduction of Analgesics, Hypnotics, Sedatives into Peripheral Vein, Percutaneous Approach (ICD-10-PCS; 2022-06-12)
DX: I25.10 Atherosclerotic heart disease of native coronary artery without angina pectoris (principal); I73.9 Peripheral vascular disease, unspecified; M25.562 Pain in left knee; J45.909 Unspecified asthma, uncomplicated; I11.0 Hypertensive heart disease with heart failure; M25.561 Pain in right knee; E05.90 Thyrotoxicosis, unspecified without thyrotoxic crisis or storm; E11.9 Type 2 diabetes mellitus without complications; I50.9 Heart failure, unspecified; R77.8 Other specified abnormalities of plasma proteins; R42 Dizziness and giddiness; R20.2 Paresthesia of skin; Z88.0 Allergy status to penicillin
CPT/HCPCS: 0241U-QW; 36415; 70450-TC; 72132-TC; 73521-TC-FY; 73564-TC-LT-FY; 73564-TC-RT-FY; 80053; 82607; 82728; 82962; 83540; 83550; 83735; 84100; 84443; 84484; 85025; 85610; 85651; 85730; 86038; 86140; 86431; 86618; 93005; 93010; 93306-TC; 97116-GP; 97161-GP; 99285-25; G0378; Q9967

== ENCOUNTER → 2022-08-03 | Day surgery (SDC) | payer OTHER | END | disposition home or self-care (01) | LOC: JRADIR 08:38 | PROVIDERS: ATTEND Orthopaedic Surgery | PROC: BQ27YZZ Computerized Tomography (CT Scan) of Right Knee using Other Contrast (ICD-10-PCS; principal; 2022-08-03) | DX: M25.561 Pain in right knee (principal) | CPT/HCPCS: 27369; 70130-TC-FY; 73700-TC-RT ==

== ENCOUNTER 2022-10-24 19:04 | Inpatient (IN) | payer OTHER ==
[2022-10-24 19:27] VITALS: BMI 23.3
[2022-10-24 21:07] LABS: BASO % 0.5 % (0-2.0); EOS % 2.9 % (0-4.5); MCHC 33.4 g/dl (32.0-36.0); MEAN CELL VOLUME 83.7 fl (80-96); MEAN PLT VOLUME 10.5 fl (7.5-11.1); MONO % 8.4 % (3.8-10.2); NEUT % 50.2 % (42.8-82.8); PLATELET COUNT 189 10^3/uL (134-434); RDW 13.2 % (11.6-15.6); WHITE BLOOD COUNT 13.3 K/mm3 (4.0-10.0)
[2022-10-24 21:15] LABS: INR 1.11 (0.83-1.09); PROTHROMBIN TIME (PATIENT) 12.9 SEC (9.7-13.0)
[2022-10-24 21:18] LABS: ACTIVATED PTT 29.2 SECONDS (25.2-36.5)
[2022-10-24 21:41] LABS: CHLORIDE 103 mmol/L (98-107); POTASSIUM 4.1 mmol/L (3.5-5.1); SODIUM 140 mmol/L (136-145)
[2022-10-24 21:43] LABS: ANION GAP 10 MMOL/L (8-16); BLOOD UREA NITROGEN 23.5 mg/dL (7-18); CALCIUM 9.4 mg/dL (8.5-10.1); CO2 27 mmol/L (21-32); GLUCOSE,RANDOM 242 mg/dL (74-106)
[2022-10-24 21:46] LABS: SGPT/ALT 17 U/L (13-61)
[2022-10-24 21:47] LABS: CREATININE 1.5 mg/dL (0.55-1.3); SGOT/AST 12 U/L (15-37)
[2022-10-24 21:48] LABS: BILIRUBIN,TOTAL 0.2 mg/dL (0.2-1); TOT PROT 7.7 g/dl (6.4-8.2)
[2022-10-24 21:49] LABS: ALK PHOS 62 U/L (45-117)
[2022-10-24] MEDS ORDERED: LACTATED RINGERS SOLUTION 1000 ML INFUS.BAG IV ONE (22:06)
[2022-10-25] MEDS: ISOSORBIDE MONONITRATE 30 MG TAB.SR.24H (FP) PO SCH (10:30)
[2022-10-25] MEDS: ENOXAPARIN NA (PORCINE) 40 MG/0.4 ML DISP.SYRIN SQ SCH (10:30)
[2022-10-25] MEDS: CLOPIDOGREL BISULFATE 75 MG TABLET (FP) PO SCH (10:30)
[2022-10-25] MEDS: PANTOPRAZOLE 40 MG TABLET PO SCH (10:30)
[2022-10-25] MEDS: ASPIRIN COATED 81 MG TABLET.EC PO SCH ×2 (10:30→21:25)
[2022-10-25] MEDS: MONTELUKAST NA 10 MG TABLET PO SCH (10:30)
[2022-10-25] MEDS: metFORMIN HCL 500 MG TABLET (FP) PO SCH ×2 (10:30→21:27)
[2022-10-25] MEDS: SPIRONOLACTONE 25 MG TABLET PO SCH (10:30)
[2022-10-25] MEDS: INSULIN (LEVEMIR) 100 UNITS/ML UNITS SQ SCH ×2 (10:31→21:26)
[2022-10-25] MEDS: PRAMIPEXOLE DIHYDROCHLORIDE 0.25 MG TABLET PO SCH ×2 (10:39→23:25)
[2022-10-25] MEDS: SACUBITRIL/VALSARTAN 97 MG-103 MG TABLET PO SCH ×2 (10:39→21:26)
[2022-10-25] MEDS: INSULIN SLIDING SCALE (NOVOLOG) 1 VIAL SQ SCH ×3 (12:14→21:27)
[2022-10-25] MEDS: GABAPENTIN 100 MG CAPSULE PO SCH ×2 (14:55→21:25)
[2022-10-25] MEDS: PROPYLTHIOURACIL 50 MG TABLET (UD) PO SCH ×2 (14:55→21:27)
[2022-10-25] MEDS ORDERED: ACETAMINOPHEN 1000 MG/100 ML BAG IVPB PRN (21:45)
[2022-10-25] MEDS ORDERED: ROSUVASTATIN CA 10 MG TABLET PO SCH (22:00)
[2022-10-26] MEDS: INSULIN SLIDING SCALE (NOVOLOG) 1 VIAL SQ SCH ×4 (06:32→21:48)
[2022-10-26] MEDS: PROPYLTHIOURACIL 50 MG TABLET (UD) PO SCH ×3 (06:32→21:41)
[2022-10-26] MEDS: GABAPENTIN 100 MG CAPSULE PO SCH ×3 (06:32→21:40)
[2022-10-26 08:45] LABS: BASO % 0.5 % (0-2.0); EOS % 4.4 % (0-4.5); HEMATOCRIT 32.5 % (32.4-45.2); HEMOGLOBIN 10.5 GM/dL (10.7-15.3); LYMPH % 37.7 % (8-40); MCH 27.6 pg (25.7-33.7); MCHC 32.5 g/dl (32.0-36.0); MEAN CELL VOLUME 85.1 fl (80-96); MEAN PLT VOLUME 10.8 fl (7.5-11.1); MONO % 10.3 % (3.8-10.2); NEUT % 47.1 % (42.8-82.8); PLATELET COUNT 141 10^3/uL (134-434); RBC 3.81 M/mm3 (3.60-5.2); RDW 12.9 % (11.6-15.6); WHITE BLOOD COUNT 7.1 K/mm3 (4.0-10.0)
[2022-10-26 09:13] LABS: POTASSIUM 4.1 mmol/L (3.5-5.1)
[2022-10-26 09:15] LABS: BLOOD UREA NITROGEN 16.2 mg/dL (7-18); CALCIUM 8.4 mg/dL (8.5-10.1)
[2022-10-26 09:18] LABS: CREATININE 0.6 mg/dL (0.55-1.3)
[2022-10-26 09:20] LABS: BILIRUBIN,TOTAL 0.5 mg/dL (0.2-1); TOT PROT 6.2 g/dl (6.4-8.2)
[2022-10-26 09:28] LABS: ALBUMIN 3.2 g/dl (3.4-5.0)
[2022-10-26] MEDS: MONTELUKAST NA 10 MG TABLET PO SCH (10:05)
[2022-10-26] MEDS: ENOXAPARIN NA (PORCINE) 40 MG/0.4 ML DISP.SYRIN SQ SCH (10:05)
[2022-10-26] MEDS: CLOPIDOGREL BISULFATE 75 MG TABLET (FP) PO SCH (10:05)
[2022-10-26] MEDS: SPIRONOLACTONE 25 MG TABLET PO SCH (10:05)
[2022-10-26] MEDS: DULoxetine HCL 30 MG CAPSULE.DR PO SCH (10:05)
[2022-10-26] MEDS: PANTOPRAZOLE 40 MG TABLET PO SCH (10:06)
[2022-10-26] MEDS: ISOSORBIDE MONONITRATE 30 MG TAB.SR.24H (FP) PO SCH (10:06)
[2022-10-26] MEDS: ASPIRIN COATED 81 MG TABLET.EC PO SCH ×2 (10:06→21:41)
[2022-10-26] MEDS: metFORMIN HCL 500 MG TABLET (FP) PO SCH ×2 (10:20→21:40)
[2022-10-26] MEDS: PRAMIPEXOLE DIHYDROCHLORIDE 0.25 MG TABLET PO SCH (10:20)
[2022-10-26] MEDS: INSULIN (LEVEMIR) 100 UNITS/ML UNITS SQ SCH ×2 (10:40→21:48)
[2022-10-26] MEDS: SACUBITRIL/VALSARTAN 97 MG-103 MG TABLET PO SCH ×2 (12:48→21:41)
[2022-10-26 15:17] LABS: EPI CELLS 10 /uL (0-25.1); HYALINE CASTS 0 /uL (0-3.1); URINE APPEARANCE CLEAR; URINE BACTERIA 72 /uL (0-1359); URINE BILIRUBIN NEGATIVE (NEGATIVE); URINE COLOR YELLOW; URINE GLUCOSE (UA) NEGATIVE (NEGATIVE); URINE KETONE NEGATIVE (NEGATIVE); URINE LEUK ESTERASE NEGATIVE (NEGATIVE); URINE NITRITE NEGATIVE (NEGATIVE); URINE PROTEIN 1+ (NEGATIVE); URINE RBC 28 /uL (0-23.9); URINE WBC 3 /uL (0-25.8)
[2022-10-26] MEDS ORDERED: IMIPRAMINE HCL 25 MG TABLET (NON FORMULARY) PO SCH (22:00)
[2022-10-27 01:33] VITALS: RESP 18
[2022-10-27 06:25] VITALS: BP 132/74; PULSE 64; TEMP 97.9
[2022-10-27] MEDS: GABAPENTIN 100 MG CAPSULE PO SCH ×2 (06:43→14:20)
[2022-10-27] MEDS: PROPYLTHIOURACIL 50 MG TABLET (UD) PO SCH ×2 (06:43→14:20)
[2022-10-27] MEDS: INSULIN SLIDING SCALE (NOVOLOG) 1 VIAL SQ SCH ×2 (06:44→12:01)
[2022-10-27 07:28] LABS: BASO % 0.3 % (0-2.0); EOS % 2.8 % (0-4.5); HEMOGLOBIN 10.8 GM/dL (10.7-15.3); LYMPH % 43.5 % (8-40); MCH 27.8 pg (25.7-33.7); MCHC 32.8 g/dl (32.0-36.0); MEAN CELL VOLUME 84.9 fl (80-96); MEAN PLT VOLUME 10.7 fl (7.5-11.1); MONO % 8.9 % (3.8-10.2); NEUT % 44.5 % (42.8-82.8); PLATELET COUNT 151 10^3/uL (134-434); RBC 3.89 M/mm3 (3.60-5.2); RDW 12.6 % (11.6-15.6); WHITE BLOOD COUNT 6.9 K/mm3 (4.0-10.0)
[2022-10-27 07:57] LABS: CHLORIDE 104 mmol/L (98-107); POTASSIUM 4.9 mmol/L (3.5-5.1); SODIUM 139 mmol/L (136-145)
[2022-10-27 08:04] LABS: ALBUMIN 3.2 g/dl (3.4-5.0); ANION GAP 6 MMOL/L (8-16); BLOOD UREA NITROGEN 12.4 mg/dL (7-18); CALCIUM 8.8 mg/dL (8.5-10.1); CO2 28 mmol/L (21-32); GLUCOSE,RANDOM 116 mg/dL (74-106)
[2022-10-27 08:07] LABS: CREATININE 0.6 mg/dL (0.55-1.3); SGOT/AST 11 U/L (15-37); SGPT/ALT 15 U/L (13-61)
[2022-10-27 08:09] LABS: BILIRUBIN,TOTAL 0.4 mg/dL (0.2-1); TOT PROT 6.4 g/dl (6.4-8.2)
[2022-10-27 08:10] LABS: ALK PHOS 51 U/L (45-117)
[2022-10-27] MEDS: INSULIN (LEVEMIR) 100 UNITS/ML UNITS SQ SCH (09:59)
[2022-10-27] MEDS: ENOXAPARIN NA (PORCINE) 40 MG/0.4 ML DISP.SYRIN SQ SCH (09:59)
[2022-10-27] MEDS: MONTELUKAST NA 10 MG TABLET PO SCH (10:00)
[2022-10-27] MEDS: ISOSORBIDE MONONITRATE 30 MG TAB.SR.24H (FP) PO SCH (10:00)
[2022-10-27] MEDS: SPIRONOLACTONE 25 MG TABLET PO SCH (10:00)
[2022-10-27] MEDS: DULoxetine HCL 30 MG CAPSULE.DR PO SCH (10:00)
[2022-10-27] MEDS: ASPIRIN COATED 81 MG TABLET.EC PO SCH (10:00)
[2022-10-27] MEDS: PANTOPRAZOLE 40 MG TABLET PO SCH (10:00)
[2022-10-27] MEDS: CLOPIDOGREL BISULFATE 75 MG TABLET (FP) PO SCH (10:00)
[2022-10-27] MEDS: metFORMIN HCL 500 MG TABLET (FP) PO SCH (10:00)
[2022-10-27] MEDS: SACUBITRIL/VALSARTAN 97 MG-103 MG TABLET PO SCH (12:01)
== END 2022-10-27 16:00 | disposition home or self-care (01) | DRG 683 ==
LOC: JER 19:04 → JERBED 21:59 → J4S 10-25 07:51
PROVIDERS: ADMIT Internal Medicine; ATTEND Internal Medicine
DX: N17.9 Acute kidney failure, unspecified (principal); I42.9 Cardiomyopathy, unspecified; I50.22 Chronic systolic (congestive) heart failure; I11.0 Hypertensive heart disease with heart failure; E78.5 Hyperlipidemia, unspecified; E05.90 Thyrotoxicosis, unspecified without thyrotoxic crisis or storm; E11.42 Type 2 diabetes mellitus with diabetic polyneuropathy; K21.9 Gastro-esophageal reflux disease without esophagitis; I25.10 Atherosclerotic heart disease of native coronary artery without angina pectoris; R55 Syncope and collapse; F32.A Depression, unspecified; M54.16 Radiculopathy, lumbar region
CPT/HCPCS: 36415; 70450-TC; 71045-TC-FY; 72125-TC; 73060-TC-RT-FY; 73502-TC-RT-FY; 73552-TC-RT-FY; 73590-TC-RT-FY; 76775-TC; 80053; 80307; 81003; 82550; 82962; 84439; 84443; 84484; 85025; 85610; 85651; 85730; 86140; 86850; 86900; 86901; 93005; 93010; 93880-TC; 93970-TC; 99285-25

== ENCOUNTER 2023-05-14 17:13 | Emergency (ER) | payer OTHER ==
[2023-05-14 18:24] VITALS: BP 147/79; PULSE 80; RESP 18; TEMP 98.3; BMI 24.6
== END 2023-05-14 18:47 | disposition home or self-care (01) ==
LOC: FER 17:13
DX: T20.00XA Burn of unspecified degree of head, face, and neck, unspecified site, initial encounter (principal); X08.8XXA Exposure to other specified smoke, fire and flames, initial encounter
CPT/HCPCS: 99282-25